=== PATIENT | male | born 1960 ===

== ENCOUNTER 2020-04-23 13:46 | Outpatient (REF) | payer OTHER, SELFPAY | END 2020-04-23 13:47 | disposition home or self-care (01) | LOC: HO.LAB 13:46 | PROVIDERS: Visit Provider Internal Medicine | DX: Z20.828 Contact with and (suspected) exposure to other viral communicable diseases (principal) | CPT/HCPCS: 36415; C9803; U0003 ==

== ENCOUNTER 2021-05-19 10:42 | Outpatient (REF) | payer MEDICARE, MEDICAID, SELFPAY ==
--- NOTE | 2021-05-19 | PFT_ITS ---
INDICATION: COPD. SPIROMETRY: FEV1 to FVC of 74% with an FEV1 of 1.67 L which is 52% predicted, FVC of 2.24 L which is 54% predicted. No significant response to bronchodilators noted. The patient does have evidence of small airway disease with AOF43-62 of 42% predicted. Maximum voluntary ventilation 58% predicted. LUNG VOLUMES: Total lung capacity 64% predicted with an expiratory reserve volume of 62% predicted. DIFFUSION CAPACITY: DLCO 97% predicted. INTERPRETATION: No definitive obstructive ventilatory defect, although the patient does have evidence of small airways disease. No significant response to bronchodilators noted. In addition to that, the patient does have a moderate restrictive ventilatory defect suggesting interstitial lung disease. Cannot rule out neuromuscular conditions. Diffusion capacity is within normal limits. If asthma is in the differential, methacholine challenge may be helpful in assessing for hyper-reactive airways, otherwise, clinical correlation warranted. Additional evaluation for the restrictive lung disease is also warranted by the pulmonary referral. Higinio Benz MD MR/MODL / [id number]
== END 2021-05-19 10:43 | disposition home or self-care (01) ==
LOC: HO.RESP 10:42
PROVIDERS: PCP Registered Nurse; Visit Provider Registered Nurse
DX: J44.9 Chronic obstructive pulmonary disease, unspecified (principal)
CPT/HCPCS: 94060; 94727; 94729

== ENCOUNTER → 2021-06-04 14:44 | Outpatient (REF) | payer MEDICARE, MEDICAID, SELFPAY | LOC: HO.SL 14:44 | PROVIDERS: Visit Provider Registered Nurse | DX: G47.33 Obstructive sleep apnea (adult) (pediatric) (principal); R06.83 Snoring; R40.0 Somnolence | CPT/HCPCS: 95806 ==

== ENCOUNTER → 2021-12-29 10:20 | Outpatient (REF) | payer MEDICAID, SELFPAY ==
--- NOTE | 2021-12-29 10:24 | CA_ITS ---
Transthoracic Echocardiogram Patient (Last, First, Middle): Dillon Harvey, Gender: Male Date of : 1960 Age: 61 Procedure Date: 12/29/2021 Procedure Type: Transthoracic Echocardiogram Location: OP Height: 170.18 cm Weight: 99.79 kg BSA: 2.11 m2 Heart Rate: 74 bpm BP: 120 / 70 mmHg Collar Runner: HELEN Referring MD: On[facility] Hay Sorter: Mikhail Simpson MD Symptoms: R60.0 EDEMA Study Quality: Adequate ECG Rhythm: Sinus arrhythmia Conclusions: - 1. Normal LV systolic function with LVEF of 60 65% with normal filling pattern 2. Aortic valve not well visualized but increased gradient suggestive of early aortic stenosis with mild aortic regurgitation 3. Normal RV systolic pressure 4. No gross pericardial effusion Findings Left Ventricle Normal left ventricular size, thickness, and systolic function. The visually estimated ejection fraction is between 60-65%. Spectral Doppler is indicative of a normal filling pattern. Right Ventricle Normal right ventricular cavity size and systolic function. Atria Both atria are normal in size. There is no evidence of interatrial shunt. Aortic Valve The aortic valve was not well visualized. There is mild calcification of the aortic valve. The mean gradient is 13 mmHg. There is mild aortic valve regurgitation. increased gradient across aortic valve may suggest early aortic stenosis. There is no obvious other etiology noted Mitral Valve Normal mitral valve structure and function. There is no mitral valve regurgitation. There is no mitral valve stenosis. Pulmonic Valve The pulmonic valve is likely normal. There is trace pulmonic valve regurgitation. Tricuspid Valve Normal tricuspid valve structure. There is trace tricuspid valve regurgitation. The right ventricular systolic pressure is normal. The right ventricular systolic pressure is 14 mmHg. Normal right atrial pressure. There is no evidence of pulmonary hypertension. Great Vessels All visible segments of the aorta are normal in size. The pulmonary artery was not well visualized. Venous The inferior vena cava is normal in size and collapses greater than 50% with inspiration. Pericardium/Pleural There is no evidence of pericardial effusion. Prior Study Comparison increased gradient across aortic valve. Mild aortic regurgitation noted Measurements 2D Linear Measurements IVSd: 1.05 0.6-0.9/0.6-1.0 cm LVIDd: 5.00 3.9-5.3/4.2-5.9 cm LVIDd Index: 2.37 2.4-3.2/2.2-3.1 cm/m2 LVIDs: 2.49 2.0-3.6 cm LVPWd: 1.10 0.7-1.1 cm LA Diam: 3.40 2.7-3.8/3.0-4.0 cm LAIDs Index: 1.61 1.5-2.3 cm/m2 LV Mass: 250.15 67-162/88-224 g LV Mass Index: 118.55 43-95/49-115 g/m2 LVOT Diam: 2.10 3.0+(-)1.3 cm 2D Systolic Function EF 4C: 62.40 >55% EF 2C: 66.60 >55% EF BiP: 64.90 >55% Mitral Valve MV Pk E: 1.06 MV PK A: 0.91 MV Decel Time: 192.00 E/A: 1.20 E'Lateral: 8.38 E'Medial: 6.85 E/E' Med: 15.50 E/E' Lat: 12.60 PHT: 56.00 MVA PHT: 3.93 Decel Calhoun: 5.52 Aortic Valve AoV Pk Simon: 2.58 AoV Mn Simon: 1.66 AoV VTI: 0.43 AoV Pk Grad: 27.00 Aov Mn Grad: 13.00 NAIF Cont.VTI: 2.67 AI Pk Simon: 4.20 AI Calhoun: 2.57 LVOT LVOT Pk Simon: 1.90 LVOT Mn Simon: 1.34 LVOT VTI: 0.33 LVOT Pk Grad: 14.00 LVOT Mn Grad: 8.00 LVOT Diam: 2.10 LVOT Area: 3.46 Diastolic Function MV Pk E: 1.06 MV Pk A: 0.91 E/A: 1.20 E'Medial: 6.85 E/E' Med: 15.50 E' Laterial: 8.38 E/E' Lat: 12.60 Right Ventricle TAPSE (mm): 25.30 TVS' Simon: 19.00 Tricuspid Valve TR Pk Simon: 1.65 TR Pk Grad: 11.00 RA Press: 3.00 RVSP: 14.00 Great Vessels Aorta Sinus of Valsalva: 3.70 2.0-3.5 cm Ao Asc: 3.80 2.1-3.4 cm Pulmonary Valve PV Pk Simon: 1.37 Peak PV Grad: 8.00 Updated in Other Vendor System with Status of Final Mikhail Simpson MD electronically signed on 12/30/2021 5:37:11 PM with status of Final
== END ==
LOC: HO.CARD 10:20
PROVIDERS: PCP Registered Nurse; Visit Provider Registered Nurse
DX: R60.0 Localized edema (principal)
CPT/HCPCS: 93306

== ENCOUNTER → 2022-01-07 10:44 | Outpatient (BNVA) | payer MEDICAID, SELFPAY | PROVIDERS: PCP Registered Nurse; Visit Provider Internal Medicine | DX: E66.9 Obesity, unspecified (principal); G47.33 Obstructive sleep apnea (adult) (pediatric); J45.909 Unspecified asthma, uncomplicated; Z68.37 Body mass index [BMI] 37.0-37.9, adult | CPT/HCPCS: 99202 ==

== ENCOUNTER → 2022-04-14 12:51 | Outpatient (BNVA) | payer MEDICAID, SELFPAY | PROVIDERS: PCP Registered Nurse; Visit Provider Internal Medicine | DX: G47.33 Obstructive sleep apnea (adult) (pediatric) (principal); J45.909 Unspecified asthma, uncomplicated; E66.9 Obesity, unspecified; Z68.37 Body mass index [BMI] 37.0-37.9, adult | CPT/HCPCS: 99212 ==

== ENCOUNTER → 2022-08-03 10:59 | Outpatient (BNVA) | payer MEDICAID, SELFPAY | PROVIDERS: PCP Registered Nurse; Visit Provider Internal Medicine | DX: R06.00 Dyspnea, unspecified (principal); J45.909 Unspecified asthma, uncomplicated; E66.01 Morbid (severe) obesity due to excess calories; G47.33 Obstructive sleep apnea (adult) (pediatric); Z68.36 Body mass index [BMI] 36.0-36.9, adult; Z99.89 Dependence on other enabling machines and devices | CPT/HCPCS: 99212 ==

== ENCOUNTER 2023-02-02 10:46 | Outpatient (AMB) | payer MEDICAID, SELFPAY ==
--- NOTE | 2023-02-02 10:59 | MHC.OFFVIS ---
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 Required: No Allergies No Known Allergies [No Known Allergies*] Allergy (Verified 02/02/23 11:35) Medication List - Last Reconciled 02/02/23 by Sabra Cabello MD albuterol sulfate 90 mcg/actuation (Ventolin HFA) 2 puffs inhalation Q4-6H PRN albuterol sulfate mg inhalation Q6H PRN cholecalciferol (vitamin D3) 50 mcg PO DAILY cyanocobalamin (vitamin B-12) 1,000 mcg PO DAILY diclofenac sodium 1% 2 grams topical QID furosemide 20 - 40 mg PO DAILY PRN ibuprofen 600 mg PO BID PRN Do you need a note to return to daycare/school/sports/work: No HPI Dypsnea HPI Details This 62 years old gentleman is here for his 6 months follow-up for sleep apnea and CPAP uses. He uses his CPAP every night. Lately there has been disturbance of his sleep due to water building in the hose. He has new CPAP machine since last year and it has been normally working okay. Weight mahan there has been no progress at all. He needs to join weight management program. Breathing has been good except for occasional wheezing and cough and he uses albuterol only once in a while, not on a daily basis. [facility] Medical History Bronchial asthma FARIBA (obstructive sleep apnea) Obesity (BMI 35.0-39.9 without comorbidity) Social History Patient Tobacco Use Status: Never used Tobacco Review of Systems Const All systems reviewed & are unremarkable except as noted in HPI and below Eyes Reports no additional complaints ENT Reports no additional complaints Card Denies chest pain, Denies irregular heart rhythm and Denies leg edema Resp Reports as per HPI GI Reports no additional complaints Reports no additional complaints Musc Reports myalgias and Reports arthralgias Skin/Breast Reports system reviewed and no additional complaints, except as documented Neuro Reports no additional complaints Psych Reports no additional complaints Endo Reports no additional complaints Physical Exam Vital Signs: Last Vital Signs Pulse 78 02/02/23 11:17 BP 110/74 02/02/23 11:17 Pulse Ox 97 02/02/23 11:17 BMI result Body Mass Index 36.6 Const Other: Has a round face. Short and obese neck, Mallampati class 4. General: comfortable, no acute distress, alert and awake Orientation/consciousness: patient oriented x3 HEENT Head: Yes normal to inspection General nose exam: No nasal polyps present and No nasal discharge present Face and sinus: Yes sinuses nontender Mouth: oropharynx abnormals (Oropharynx is narrow and crowded, Mallampati class 3) Throat: Yes posterior oropharynx normal Eyes General: appearance normal, both eyes and all related structures Neck Neck: Yes normal visual inspection, Yes no lymphadenopathy, Yes trachea midline, Yes no JVD and Yes other (Neck circumference 19 in) Thyroid: Thyroid normal Chest Chest palpation & inspection: normal inspection of the chest, normal palpation of entire chest wall and no tenderness Resp Effort & Inspection: normal respiratory effort Auscultation: clear to auscultation bilaterally, no crackles and no wheezes Cardio Palpation: normal PMI Rate: regular rate Rhythm: regular rhythm Heart sounds: no gallops and no murmurs Peripheral pulses: Peripheral pulses 2+ throughout GI Inspection: Yes other (Abdomen is obese and protuberant) Palpation (GI): Soft to palpation, nontender, No hepatosplenomegaly present and no masses Auscultation: normal bowel sounds Back/Spine/Pelvis Thoracic/Lumbar Spine: thoracic and lumbar spine normal to inspection Skin General skin exam: no rashes or lesions noted Neuro General: patient oriented x3 and no focal motor deficits Cranial nerves: Yes CN's II-XII intact bilaterally Extrem General: Yes normal to inspection, Yes no clubbing, cyanosis or edema and Yes no calf tenderness Psych Appearance: grossly normal and well kempt Speech and movement: Normal speech and movement present Assessment & Plan Assessment & Plan (1) Bronchial asthma: Comment: He has mild reactive airways/bronchial asthma, stable Use albuterol HFA ( VENTOLIN ) 2 puffs Q 6 hours p.r.n. Code(s): J45.909 - Unspecified asthma, uncomplicated (2) FARIBA (obstructive sleep apnea): Comment: He has moderately severe obstructive sleep apnea. HAS BEEN USING CPAP VERY REGULARLY AND BENEFITING FROM IT. HIS. SLEEP QUALITY HAS DEFINITELY IMPROVED EVEN HIS SHORTNESS OF BREATH AT NIGHT IS IMPROVED. HE IS COMMENDED FOR HIS GOOD COMPLIANCE, AND ADVISED TO CONTINUE USING EVERY NIGHT. CURRENTLY HAS SOME PROBLEM OF WATER BUILDING IN THE HOSE HE IS ADVISED TO CALL [employer], TECHNICAL SUPPORT ARE HE CAN BRING THE CPAP MACHINE HERE TO THE OFFICE AND WILL CHECK IT. Code(s): G47.33 - Obstructive sleep apnea (adult) (pediatric) (3) Obesity (BMI 35.0-39.9 without comorbidity): Comment: Patient is moderately obese patient is moderately obese. BMI=36.5 I discussed with him and advised that he should continue to lose weight. Discussed about diet and importance of exercise. Code(s): E66.9 - Obesity, unspecified Coding Level of Care Code Est Pt Level 3 (14515) Diagnoses Bronchial asthma J45.909 FARIBA (obstructive sleep apnea) G47.33 Obesity (BMI 35.0-39.9 without comorbidity) E66.9
[2023-02-02 11:17] VITALS: BP 110/74; PULSE 78; O2SAT 97; BMI 36.6
== END 2023-02-02 11:32 | disposition home or self-care (01) ==
PROVIDERS: PCP Registered Nurse; Visit Provider Internal Medicine
DX: J45.909 Unspecified asthma, uncomplicated (principal); G47.33 Obstructive sleep apnea (adult) (pediatric); E66.9 Obesity, unspecified
CPT/HCPCS: 99213

== ENCOUNTER → 2023-02-02 10:46 | Outpatient (BNVA) | payer MEDICAID, SELFPAY | PROVIDERS: Visit Provider Internal Medicine | DX: J45.909 Unspecified asthma, uncomplicated (principal); G47.33 Obstructive sleep apnea (adult) (pediatric); E66.9 Obesity, unspecified; Z68.36 Body mass index [BMI] 36.0-36.9, adult | CPT/HCPCS: 99212 ==

== ENCOUNTER 2023-06-08 10:35 | Outpatient (AMB) | payer MEDICAID, SELFPAY ==
--- NOTE | 2023-06-08 10:50 | A.OFFVIS_ITS ---
Intake Vital Signs 06/08/23 10:51 Height 5 ft 7 in Weight 241 lb BMI 37.7 BP 108/60 Blood Pressure Location Lt brachial Position Sitting Pulse 67 Pulse Source Pulse Oximeter Pulse Oximetry (%) 96 Oxygen Delivery Method Room Air Intake Visit Reasons: Dypsnea Intake Note: pt is here for follow up of FARIBA and states he is having a problem with his mach ine shutting off, gave DME information. He also, states he is a little wheezy. 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: No Allergies No Known Allergies [No Known Allergies*] Allergy (Verified 06/08/23 11:14) Medication List - Last Reconciled 06/08/23 by Sabra Cabello MD albuterol sulfate 90 mcg/actuation (Ventolin HFA) 2 puffs inhalation Q4-6H PRN albuterol sulfate mg inhalation Q6H PRN atorvastatin 10 mg PO DAILY cholecalciferol (vitamin D3) 50 mcg PO DAILY cyanocobalamin (vitamin B-12) 1,000 mcg PO DAILY diclofenac sodium 1% 2 grams topical QID furosemide 20 - 40 mg PO DAILY PRN ibuprofen 600 mg PO BID PRN topiramate 50 mg PO BID Do you need a note to return to daycare/school/sports/work: No HPI Dypsnea HPI Details THIS 62 YEARS OLD GENTLEMAN WITH GROSS OBESITY, AND DIAGNOSIS OF OBSTRUCTIVE SLEEP APNEA, Comes after 4 months for follow-up. He does put on the CPAP mask every night, and sleeps okay. But he wakes up with bouts of some wheezing during the night. He denies daytime sleepiness. He has put on about 10 lb of weight. At work he has frequent wheezing and uses albuterol 3 to 4 times a day. However he is able to correlate with the using perfume on his body , that makes him more wheezy. [facility] Medical History Bronchial asthma FARIBA (obstructive sleep apnea) Obesity (BMI 35.0-39.9 without comorbidity) Social History Patient Tobacco Use Status: Never used Tobacco Review of Systems Const All systems reviewed & are unremarkable except as noted in HPI and below Eyes Reports no additional complaints ENT Reports no additional complaints Card Denies chest pain, Denies irregular heart rhythm and Denies leg edema Resp Reports as per HPI GI Reports no additional complaints Reports no additional complaints Musc Reports myalgias and Reports arthralgias Skin/Breast Reports system reviewed and no additional complaints, except as documented Neuro Reports no additional complaints Psych Reports no additional complaints Endo Reports no additional complaints Physical Exam Vital Signs: Last Vital Signs Pulse 67 06/08/23 10:51 BP 108/60 06/08/23 10:51 Pulse Ox 96 06/08/23 10:51 Oxygen Delivery Method Room Air 06/08/23 10:51 BMI result Body Mass Index 37.7 Const Other: Has a round face. Short and obese neck, Mallampati class 4. General: comfortable, no acute distress, alert and awake Orientation/consciousness: patient oriented x3 HEENT Head: Yes normal to inspection General nose exam: No nasal polyps present and No nasal discharge present Face and sinus: Yes sinuses nontender Mouth: oropharynx abnormals (Oropharynx is narrow and crowded, Mallampati class 3) Throat: Yes posterior oropharynx normal Eyes General: appearance normal, both eyes and all related structures Neck Neck: Yes normal visual inspection, Yes no lymphadenopathy, Yes trachea midline, Yes no JVD and Yes other (Neck circumference 19 in) Thyroid: Thyroid normal Chest Chest palpation & inspection: normal inspection of the chest, normal palpation of entire chest wall and no tenderness Resp Effort & Inspection: normal respiratory effort Auscultation: clear to auscultation bilaterally, no crackles and no wheezes Cardio Palpation: normal PMI Rate: regular rate Rhythm: regular rhythm Heart sounds: no gallops and no murmurs Peripheral pulses: Peripheral pulses 2+ throughout GI Inspection: Yes other (Abdomen is obese and protuberant) Palpation (GI): Soft to palpation, nontender, No hepatosplenomegaly present and no masses Auscultation: normal bowel sounds Back/Spine/Pelvis Thoracic/Lumbar Spine: thoracic and lumbar spine normal to inspection Skin General skin exam: no rashes or lesions noted Neuro General: patient oriented x3 and no focal motor deficits Cranial nerves: Yes CN's II-XII intact bilaterally Extrem General: Yes normal to inspection, Yes no clubbing, cyanosis or edema and Yes no calf tenderness Psych Appearance: grossly normal and well kempt Speech and movement: Normal speech and movement present Results Reviewed Results Reviewed: Compliance report for the last 30 nights is reviewed. HE HAS USED ACTUALLY 30/30 NIGHTS,. 100% AVERAGE USE PER NIGHT 7 HOURS 29 MINUTE. PRESSURE USED 9.3. NO AIR LEAK. RESIDUAL AHI 0.1 Assessment & Plan Assessment & Plan (1) Obesity (BMI 35.0-39.9 without comorbidity): Comment: Patient is moderately obese .BMI=37.7 Code(s): E66.9 - Obesity, unspecified Plan: DISCUSSED WITH HIM ABOUT DIET . HE TENDS TO EAT MORE AFTER SUPPER, KEEPS ON MUNCHING ON PORTIONS OF ON DIET. HE MUST LOSE WEIGHT AT LEAST 10 LB IN THE NEXT 3-4 MONTHS. (2) FARIBA (obstructive sleep apnea): Comment: He has moderately severe obstructive sleep apnea. HAS BEEN USING CPAP VERY REGULARLY AND BENEFITING FROM IT. HIS. SLEEP QUALITY HAS DEFINITELY IMPROVED I EXPLAINED TO HIM THE FINDINGS OF THE COMPLIANCE REPORT, AND HE IS HAPPY TO KNOW THAT HIS MACHINE WORKS DURING THE NIGHT. Code(s): G47.33 - Obstructive sleep apnea (adult) (pediatric) Plan: COMMENDED FOR GOOD COMPLIANCE AND ADVISED TO KEEP ON USING THE CPAP EVERY NIGHT (3) Bronchial asthma: Comment: He has mild reactive airways/bronchial asthma, stable Use albuterol HFA ( VENTOLIN ) 2 puffs Q 6 hours p.r.n. Code(s): J45.909 - Unspecified asthma, uncomplicated Plan: HE IS ADVISED TO AVOID USING ANY BODY PERFUMES. USE VENTOLIN ONLY FOR ACUTE WHEEZING, Coding Level of Care Code Est Pt Level 3 (18652) Diagnoses Obesity (BMI 35.0-39.9 without comorbidity) E66.9 FARIBA (obstructive sleep apnea) G47.33 Bronchial asthma J45.909
[2023-06-08 10:51] VITALS: BP 108/60; PULSE 67; O2SAT 96; BMI 37.7
== END 2023-06-08 11:14 | disposition home or self-care (01) ==
PROVIDERS: PCP Registered Nurse; Visit Provider Internal Medicine
DX: E66.9 Obesity, unspecified (principal); G47.33 Obstructive sleep apnea (adult) (pediatric); J45.909 Unspecified asthma, uncomplicated
CPT/HCPCS: 99213

== ENCOUNTER → 2023-06-08 10:35 | Outpatient (BNVA) | payer MEDICAID, SELFPAY | PROVIDERS: PCP Registered Nurse; Visit Provider Internal Medicine | DX: G47.33 Obstructive sleep apnea (adult) (pediatric) (principal); J45.909 Unspecified asthma, uncomplicated; E66.9 Obesity, unspecified; Z68.37 Body mass index [BMI] 37.0-37.9, adult | CPT/HCPCS: 99212 ==

== ENCOUNTER 2023-10-10 10:32 | Outpatient (AMB) | payer MEDICAID, SELFPAY ==
[2023-10-10 10:43] VITALS: BP 104/68; PULSE 61; O2SAT 96; BMI 37.0
--- NOTE | 2023-10-10 10:43 | MHC.OFFVIS ---
Vital Signs 10/10/23 10:43 Height 5 ft 7 in Weight 236 lb BMI 37.0 BP 104/68 Blood Pressure Location Lt brachial Position Sitting Pulse 61 Pulse Source Pulse Oximeter Pulse Oximetry (%) 96 Oxygen Delivery Method Room Air Intake Visit Reasons: Dypsnea Intake Note: pt is here for follow up and states all is well Net Application Support Specialist Required: No Allergies No Known Allergies [No Known Allergies*] Allergy (Verified 10/10/23 11:07) Medication List - Last Reconciled 10/10/23 by Sabra Cabello MD albuterol sulfate 90 mcg/actuation (Ventolin HFA) 2 puffs inhalation Q4-6H PRN albuterol sulfate mg inhalation Q6H PRN atorvastatin 10 mg PO DAILY cholecalciferol (vitamin D3) 50 mcg PO DAILY cyanocobalamin (vitamin B-12) 1,000 mcg PO DAILY diclofenac sodium 1% 2 grams topical QID furosemide 20 - 40 mg PO DAILY PRN ibuprofen 600 mg PO BID PRN topiramate 50 mg PO BID Do you need a note to return to daycare/school/sports/work: No HPI HPI Dypsnea: Details: THIS 63 YEARS OLD GENTLEMAN WITH GROSS OBESITY AND DIAGNOSIS OF OBSTRUCTIVE SLEEP APNEA, COMES FOR FOLLOW-UP AFTER 4 MONTHS. HE DOES USE THE CPAP EVERY NIGHT, MOSTLY 6-7 HOURS PER NIGHT, BUT ON SOME NIGHTS USES ONLY FOR A FEW HOURS. HE HAS HEARD ABOUT INSPIRE, SO WANTS TO TALK ABOUT THAT. HE DOES HAVE SOME NASAL STUFFINESS , WHEN HE HAS SOME DIFFICULTY IN USING THE CPAP. DENIES ANY. DAYTIME SLEEPINESS BREATHING HAS BEEN GOOD EXCEPT THAT HE USES VENTOLIN INHALER ONCE OR TWICE A DAY. NASAL CONGESTION AND SOME WHEEZING IS DIRECTLY RELATED TO HIS WEARING OF COLOGNE. HIS WEIGHT HAS NOT CHANGED MUCH. [facility] Medical History Bronchial asthma FARIBA (obstructive sleep apnea) Obesity (BMI 35.0-39.9 without comorbidity) Social History Patient Tobacco Use Status: Never used Tobacco Review of Systems Const All systems reviewed & are unremarkable except as noted in HPI and below Eyes Reports no additional complaints ENT Reports no additional complaints Card Denies chest pain, Denies irregular heart rhythm and Denies leg edema Resp Reports as per HPI GI Reports no additional complaints Reports no additional complaints Musc Reports myalgias and Reports arthralgias Skin/Breast Reports system reviewed and no additional complaints, except as documented Neuro Reports no additional complaints Psych Reports no additional complaints Endo Reports no additional complaints Physical Exam Vital Signs: Last Vital Signs Pulse 61 10/10/23 10:43 BP 104/68 10/10/23 10:43 Pulse Ox 96 10/10/23 10:43 Oxygen Delivery Method Room Air 10/10/23 10:43 BMI result Body Mass Index 37.0 Const Other: Has a round face. Short and obese neck, Mallampati class 4. General: comfortable, no acute distress, alert and awake Orientation/consciousness: patient oriented x3 HEENT Head: Yes normal to inspection General nose exam: No nasal polyps present and No nasal discharge present Face and sinus: Yes sinuses nontender Mouth: oropharynx abnormals (Oropharynx is narrow and crowded, Mallampati class 3) Throat: Yes posterior oropharynx normal Eyes General: appearance normal, both eyes and all related structures Neck Neck: Yes normal visual inspection, Yes no lymphadenopathy, Yes trachea midline, Yes no JVD and Yes other (Neck circumference 19 in) Thyroid: Thyroid normal Chest Chest palpation & inspection: normal inspection of the chest, normal palpation of entire chest wall and no tenderness Resp Effort & Inspection: normal respiratory effort Auscultation: clear to auscultation bilaterally, no crackles and no wheezes Cardio Palpation: normal PMI Rate: regular rate Rhythm: regular rhythm Heart sounds: no gallops and no murmurs Peripheral pulses: Peripheral pulses 2+ throughout GI Inspection: Yes other (Abdomen is obese and protuberant) Palpation (GI): Soft to palpation, nontender, No hepatosplenomegaly present and no masses Auscultation: normal bowel sounds Back/Spine/Pelvis Thoracic/Lumbar Spine: thoracic and lumbar spine normal to inspection Skin General skin exam: no rashes or lesions noted Neuro General: patient oriented x3 and no focal motor deficits Cranial nerves: Yes CN's II-XII intact bilaterally Extrem General: Yes normal to inspection, Yes no clubbing, cyanosis or edema and Yes no calf tenderness Psych Appearance: grossly normal and well kempt Speech and movement: Normal speech and movement present Results Reviewed Results Reviewed: COMPLIANCE REPORT FOR THE LAST 30 NIGHTS IS REVIEWED. HE HAS USED 30/30 NIGHTS. AVERAGE USE IT PER. NIGHT 7 HOURS 19 MINUTES ON BOUT. 3 NIGHTS HE USED LESS THAN 4 HOURS PRESSURE USED IS 10 CM. RESIDUAL AHI 0 Assessment & Plan Assessment & Plan (1) Obesity (BMI 35.0-39.9 without comorbidity): Comment: Patient is moderately obese .BMI=37.0 Code(s): E66.9 - Obesity, unspecified Category: Medical Plan: EXPLAINED ABOUT THE WEIGHT AND ENCOURAGED TO LOSE MORE WEIGHT. BMI BEING ABOVE 35, HE DOES NOT QUALIFY FOR INSPIRE. (2) FARIBA (obstructive sleep apnea): Comment: He has moderately severe obstructive sleep apnea. HAS BEEN USING CPAP VERY REGULARLY AND BENEFITING FROM IT. HIS SLEEP QUALITY HAS BEEN FAIRLY GOOD. Code(s): G47.33 - Obstructive sleep apnea (adult) (pediatric) Category: Medical Plan: I EXPLAINED TO HIM THAT USE OF CPAP IS THE BEST OPTION OUT TREATMENT FOR HIM. ADVISED HIM TO KEEP ON USING CPAP REGULARLY EVERY NIGHT. (3) Bronchial asthma: Comment: He has mild reactive airways/bronchial asthma, stable Code(s): J45.909 - Unspecified asthma, uncomplicated Category: Medical Plan: Use albuterol HFA ( VENTOLIN ) 2 puffs Q 6 hours p.r.n. TALKED TO HIM ABOUT CUTTING DOWN THE USE OF:, OR ANY SPRAYS. Coding Level of Care Code Est Pt Level 3 (59643) Diagnoses Obesity (BMI 35.0-39.9 without comorbidity) E66.9 FARIBA (obstructive sleep apnea) G47.33 Bronchial asthma J45.909
== END 2023-10-10 11:10 | disposition home or self-care (01) ==
PROVIDERS: PCP Registered Nurse; Visit Provider Internal Medicine
DX: E66.9 Obesity, unspecified (principal); G47.33 Obstructive sleep apnea (adult) (pediatric); J45.909 Unspecified asthma, uncomplicated
CPT/HCPCS: 99213

== ENCOUNTER → 2023-10-10 10:32 | Outpatient (BNVA) | payer MEDICAID, SELFPAY | PROVIDERS: PCP Registered Nurse; Visit Provider Internal Medicine | DX: J45.909 Unspecified asthma, uncomplicated (principal); G47.33 Obstructive sleep apnea (adult) (pediatric); E66.9 Obesity, unspecified; Z68.37 Body mass index [BMI] 37.0-37.9, adult | CPT/HCPCS: 99212 ==

== ENCOUNTER 2023-12-09 12:36 | Outpatient (REF) | payer MEDICAID, SELFPAY ==
--- NOTE | ~2023-12-09 | XR_ITS ---
EXAMINATION: XR FOOT, RIGHT CLINICAL INFORMATION: Bunion great toe. Chronic pain. COMPARISON: X-ray of the right ankle April 2018. TECHNIQUE: AP, lateral, and oblique views of the right foot. FINDINGS: There is hallux valgus with uncovering of the medial third portion of the first metatarsal head. No joint space narrowing of the first metacarpophalangeal joint. There is a bony protuberance along the medial aspect of the first metatarsal head compatible with a spur/enthesophyte. Overlying soft tissue is normal. Mild osteoarthritis of the talonavicular joint manifested by small marginal osteophytes without joint space narrowing, unchanged. Tiny calcaneal spurs, unchanged. XR/XR foot RT min 3V IMPRESSION: 1. Hallux valgus. Bony protuberance/spur of the medial aspect of the head of the first metatarsal. 2. Mild osteoarthritis of the talonavicular joint. Electronically signed by: Marty Gerardo MD 12/15/2023 08:33 PM EDT
== END 2023-12-09 12:37 | disposition home or self-care (01) ==
LOC: HO.HHCX 12:36
PROVIDERS: Visit Provider Registered Nurse
DX: M21.611 Bunion of right foot (principal)
CPT/HCPCS: 73630

== ENCOUNTER 2024-03-07 09:51 | Outpatient (AMB) | payer MEDICARE, MEDICAID, SELFPAY ==
[2024-03-07 10:10] VITALS: BP 110/68; PULSE 63; O2SAT 97; BMI 37.5
--- NOTE | 2024-03-07 10:10 | MHC.OFFVIS ---
Vital Signs 03/07/24 10:10 Height 5 ft 7 in Weight 239 lb 3.225 oz BMI 37.5 BP 110/68 Blood Pressure Location Lt brachial Position Sitting Pulse 63 Pulse Source Pulse Oximeter Pulse Oximetry (%) 97 Oxygen Delivery Method Room Air Intake Visit Reasons: copd Intake Note: pt is here for follow up and states his breathing is okay. 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 HE HAS VERY REGULAR USER OF CPAP AND SLEEPS WELL. HE HAS FULLFACE MASK WHICH FITS WELL. HE HAS NOT BEEN ABLE TO LOSE MUCH WEIGHT HE HAS BEEN TREATED FOR AN ULCER ON THE RIGHT FOOT AND WAS NOT ABLE TO WALK MUCH. BREATHING REMAINS STABLE AND HE HARDLY NEEDS TO USE ANY BRONCHODILATOR INHALER OR UPDRAFTS. [facility] Medical History Bronchial asthma FARIBA (obstructive sleep apnea) Obesity (BMI 35.0-39.9 without comorbidity) Social History Patient Tobacco Use Status: Never used Tobacco Review of Systems Const All systems reviewed & are unremarkable except as noted in HPI and below Eyes Reports no additional complaints ENT Reports no additional complaints Card Denies chest pain, Denies irregular heart rhythm and Denies leg edema Resp Reports as per HPI GI Reports no additional complaints Reports no additional complaints Musc Reports myalgias and Reports arthralgias Skin/Breast Reports system reviewed and no additional complaints, except as documented Neuro Reports no additional complaints Psych Reports no additional complaints Endo Reports no additional complaints Physical Exam Vital Signs: Last Vital Signs Pulse 63 03/07/24 10:10 BP 110/68 03/07/24 10:10 Pulse Ox 97 03/07/24 10:10 Oxygen Delivery Method Room Air 03/07/24 10:10 BMI result Body Mass Index 37.5 Const Other: Has a round face. Short and obese neck, Mallampati class 4. General: comfortable, no acute distress, alert and awake Orientation/consciousness: patient oriented x3 HEENT Head: Yes normal to inspection General nose exam: No nasal polyps present and No nasal discharge present Face and sinus: Yes sinuses nontender Mouth: oropharynx abnormals (Oropharynx is narrow and crowded, Mallampati class 3) Throat: Yes posterior oropharynx normal Eyes General: appearance normal, both eyes and all related structures Neck Neck: Yes normal visual inspection, Yes no lymphadenopathy, Yes trachea midline, Yes no JVD and Yes other (Neck circumference 19 in) Thyroid: Thyroid normal Chest Chest palpation & inspection: normal inspection of the chest, normal palpation of entire chest wall and no tenderness Resp Effort & Inspection: normal respiratory effort Auscultation: clear to auscultation bilaterally, no crackles and no wheezes Cardio Palpation: normal PMI Rate: regular rate Rhythm: regular rhythm Heart sounds: no gallops and no murmurs Peripheral pulses: Peripheral pulses 2+ throughout GI Inspection: Yes other (Abdomen is obese and protuberant) Palpation (GI): Soft to palpation, nontender, No hepatosplenomegaly present and no masses Auscultation: normal bowel sounds Back/Spine/Pelvis Thoracic/Lumbar Spine: thoracic and lumbar spine normal to inspection Skin General skin exam: no rashes or lesions noted Neuro General: patient oriented x3 and no focal motor deficits Cranial nerves: Yes CN's II-XII intact bilaterally Extrem General: Yes normal to inspection, Yes no clubbing, cyanosis or edema and Yes no calf tenderness Psych Appearance: grossly normal and well kempt Speech and movement: Normal speech and movement present Results Reviewed Results Reviewed: COMPLIANCE REPORT FOR THE LAST 30 NIGHTS IS REVIEWED. HE HAS USED 30/30 NIGHTS,. 100% OF THE NIGHTS AVERAGE USE IT PER NIGHT 7 HOURS 58 MINUTES WHICH IS EXCELLENT. THERE IS NO AIR LEAK ISSUE AND RESIDUAL AHI ONLY 0.4 Assessment & Plan Assessment & Plan (1) Obesity (BMI 35.0-39.9 without comorbidity): Comment: Patient is moderately obese .BMI=37.0 Code(s): E66.9 - Obesity, unspecified Category: Medical Plan: WE TALKED ABOUT THE DIET AND EXERCISE. HE HAS NOT BEEN ABLE TO WALK MUCH BECAUSE OF THE ULCER ON THE RIGHT FOOT BEING TREATED. INSTRUCTED TO LIMIT THE INTAKE OF CARBOHYDRATES. (2) FARIBA (obstructive sleep apnea): Comment: He has moderately severe obstructive sleep apnea. COMPLIANCE IS EXCELLENT. HAS BEEN USING CPAP VERY REGULARLY AND BENEFITING FROM IT. HIS SLEEP QUALITY HAS BEEN FAIRLY GOOD. Code(s): G47.33 - Obstructive sleep apnea (adult) (pediatric) Category: Medical Plan: COMMENDED FOR GOOD COMPLIANCE AND ADVISED TO CONTINUE USING THE CPAP EVERY NIGHT. (3) Bronchial asthma: Comment: He has mild reactive airways/bronchial asthma, stable Code(s): J45.909 - Unspecified asthma, uncomplicated Category: Medical Plan: ALBUTEROL HFA 2 PUFFS Q 6 HOURS P.R.N. Coding Level of Care Code Est Pt Level 3 (33715) Diagnoses Obesity (BMI 35.0-39.9 without comorbidity) E66.9 FARIBA (obstructive sleep apnea) G47.33 Bronchial asthma J45.909
== END 2024-03-07 10:33 | disposition home or self-care (01) ==
PROVIDERS: PCP Registered Nurse; Visit Provider Internal Medicine
DX: E66.9 Obesity, unspecified (principal); G47.33 Obstructive sleep apnea (adult) (pediatric); J45.909 Unspecified asthma, uncomplicated
CPT/HCPCS: 99213

== ENCOUNTER → 2024-03-07 09:51 | Outpatient (BNVA) | payer MEDICAID, SELFPAY | PROVIDERS: PCP Registered Nurse; Visit Provider Internal Medicine | DX: J45.909 Unspecified asthma, uncomplicated (principal); E66.9 Obesity, unspecified; G47.33 Obstructive sleep apnea (adult) (pediatric); Z68.37 Body mass index [BMI] 37.0-37.9, adult | CPT/HCPCS: 99212 ==

== ENCOUNTER 2024-05-21 11:58 | Outpatient (REF) | payer MEDICARE, MEDICAID, SELFPAY ==
--- OUTSIDE RECORDS SUMMARY | 2024-05-21 13:23 | XMS_ITS | Encounter Summary ---
Author Organization [employer] Address [address] [facility] 7t [place] [address] Care Team Providers Care Systems Administration Analyst Name Role Phone Ondina iTnoco Primary Care Provider [phone] Reason for Referral * Consultation (STAT) - Closed Specialty Diagnoses / Procedures Referred By Florentin morales Referred To Contact Surgical Oncology Diagnoses Malignant melanoma of right lower extremity including hip (CMS/HCC) Ondina Tinoco FNP [address] [place] [address] Phone: tel: fax: Tommie Franz [address] [facility] [address] [place] [address] Phone: tel: fax: Referral ID Status Reason Start Date Expiration Date V isits Requested Visits Authorized [id number] Closed Specialty Services Required 12/27/2023 12/26/2024 1 1 Encounter Details Date Type Department Care Team (Late st Contact Info) Description 12/27/2023 Orders Only [facility] [address] [place], [place] [phone] Ondina Tinoco FNP [address] [place], [place] [phone] Malignant melanoma of right lower extremity including hip (CMS/HCC) (Primary Dx) Social History Tobacco Use Types Packs/Day Years Used Date Smoking Tobacco: Never Smokeless Tobacco: Never Alcohol Use Standard Drinks/Week Comments Never 0 (1 standard drink = 0.6 oz pur e alcohol) Alcohol Answer Date Recorded Frequency of Alcohol Consumption Not on file 01/28/2023 Average Number of Drinks Not on file 023 Frequency of Binge Drinking Not on file 01/16 Score 0 01/28/2023 Depression Answer Date Recorded Patient Health Questionnaire-9 Score 0 12/09/2023 Patient Health Questionnaire-9 Score 0 12/09/2023 Last PHQ-9: Questionnaire Data Not on file 0 12/09/2023 Housing Stability Answer Date Recorded What is your housing situation today? I have corrina rudy 12/09/[address] you li ve. Do you have problems with any of the following? None of the above 12/09/2023 Food Insecurity Answer Date Recorded Within the past 12 months, y ou worried that your food would run out before you got money to buy more: Never True 12/09/2023 Within the past 12 months,th e food you bought just didn't last and you didn't have enough money to get more: Never True Transportation Answer Date Recorded In the past 12 months, has l ack of transportation kept you from medical appts, meetings, work or from getting things needed for daily living? No 12/09/2023 Utilities Answer Date Recorded In the past 12 months, has t he electric, gas, oil or water company threatened to shut off services in your home? No 12/09/2023 Depression Answer Date Recorded Patient Health Questionnaire-2 Score 0 12/09/2023 Internet Access Answer Date Recorded Internet Access Q1 Yes 12/16/2023 Internet Access Q2 Not on file 12/16/2023 Sex and Gender Information Value Date Recorded Sex Assigned at Male 02/15/2022 10:18 AM EDT Legal Sex Male 10:18 AM EDT Gender Identity Male 02/15/2022 10:18 AM EDT Sexual Orientation Straight 02/15/2022 10 :18 AM EDT documented as of this encounter Plan of Treatment Upcoming Encounters Date Type Department Care Team (Late st Contact Info) Description 05/25/2024 11:15 AM EST Office Visit [facility] [address] [place] [address] [facility], [facility] [address] [place] [address] documented as of this encounter Procedures Procedure Name Priority Date/Time Associated Diagnosis Comments AMB REFERRAL TO SURGICAL ONCOLOGY STAT 01/03/2024 Malignant melanoma of right lower extremity including hip (CMS/HCC) documented in this encounter Results * Referral to Surgical Oncology (01/03/2024) [facility] OUTPATIENT REFERRAL ORDERABLE S Final Result documented in this encounter Visit Diagnoses Diagnosis Malignant melanoma of right lower extremity including hip (CMS/HCC)- Primary documented in this encounter Additional Health Concerns Assessment Noted Time PHQ-9 Depression Total Score: 0 12/09/19 24 11:12 AM EDT documented as of this encounter Care Teams Systems Administration Analyst Relationship Specialty Start Date End Date Ondina Tinoco FNP [address] [place] [phone] PCP - General Family Medicine 01/13/21 documented as of this encounter
--- OUTSIDE RECORDS SUMMARY | 2024-05-21 13:23 | XMS_ITS | Encounter Summary ---
Author Organization [employer] Address [address] [facility] 7t [place] [address] Care Team Providers Care Environmental Emergencies Assistant Name Role Phone Ondina Tinoco [facility] Primary Care Provider [phone] Encounter Details Date Type Department Care Team (Late st Contact Info) Description 03/10/2022 Abstract [facility] [address] [place] [phone] Provider, MD Yenny Social History Tobacco Use Types Packs/Day Years Used Date Smoking Tobacco: Never Assessed Sex and Gender Information Value Date Recorded Sex Assigned at Male 02/15/2022 10:18 AM EDT Legal Sex Male 10:18 AM EDT Gender Identity Male 02/15/2022 10:18 AM EDT Sexual Orientation Straight 02/15/2022 10 :18 AM EDT documented as of this encounter Plan of Treatment Upcoming Encounters Date Type Department Care Team (Late st Contact Info) Description 05/25/2024 11:15 AM EST Office Visit [facility] [address] [place] [phone] Ondina Tinoco [facility] [address] [place] [address] documented as of this encounter Visit Diagnoses Not on filedocumented in this encounter Care Teams Environmental Emergencies Assistant Relationship Specialty Start Date End Date Ondina Tinoco FNP [address] [place] [address] PCP - General Family Medicine 01/13/21 documented as of this encounter
--- OUTSIDE RECORDS SUMMARY | 2024-05-21 13:24 | XMS_ITS | Encounter Summary ---
Author Organization [employer] Address [address] [facility] [address] 7[address] [place] [address] Care Team Providers Care Tailer In Name Role Phone Alejandrina [facility] Primary Care Provider [phone] Reason for Visit * Reason Onset Date Comments PT1 01/19/2024 Encounter Details Date Type Department Care Team ([facility] st Contact Info) Description 01/19/2024 Telephone [facility] [address] [place] [address] [facility] [address] [place] [address] PT1 Social History Tobacco Use Types Packs/Day Years [...] your housing situation today? I have corrina grant 12/09/[address] you li [...] AM EDT documented as of this encounter Miscellaneous Notes * Telephone Encounter - Mary Beth Rae RN - 01/23/2024 11:52 AM EDT Called [facility] General Surgery per PCP request to confirm pt has follow up appts scheduled. Per Peggy at General Surgery, pt saw Dr Tommie Franz on 01/02 at 9:20am, and has follow up appt tomorrow 01/23 at 11:20am with Dr Franz and another follow up appt is scheduled for 02/09 with an COAL BRIQUETTE MACHINE OPERATOR in their office. Will route message to PCP as BASIM. * Telephone Encounter - Mary Beth Rae RN - 01/23/2024 11:52 AM EDT ----- Message from [facility] sent at 01/23/2024 11:24 AM EDT ----- Hi all Please check status of patient's surgical oncology case. He was supposed to have another biopsy with them. I want to make sure he did not fall through any cracks as he is not very reliable. Thank you! * Telephone Encounter - Janetnikole Cartere - 01/19/2024 2:21 PM EDT Patient calling requesting PT1 Home Address verified: Y/N: Yes Provider name or facility name: [facility] Facility Address: [address] [place] [id number] Escort needed: Y/N: No Do you have a wheelchair: Y/N: No If yes- Manual or electric: n/a Visits: 1 x month documented in this encounter Plan of Treatment Upcoming Encounters Date Type Department Care Team ([facility] st Contact Info) Description 05/25/2024 11:15 AM EST Office Visit [facility] [address] [place] [address] Ondina Tinoco FNP [address] [place] [address] documented as of this encounter Visit Diagnoses Not on filedocumented in this encounter Additional Health Concerns Assessment Noted Time PHQ-9 Depression Total Score: 0 12/09/19 24 11:12 AM EDT documented as of this encounter Care Teams Tailer In Relationship Specialty Start Date End Date Ondina Tinooc FNP [address] [place] [phone] PCP - General Family Medicine 01/13/21 documented as of this encounter
--- OUTSIDE RECORDS SUMMARY | 2024-05-21 13:24 | XMS_ITS | Encounter Summary ---
Author Organization [employer] Address [address] [facility] [place] [address] Care Team Providers Care Mercury Cell Cleaner Name Role Phone Alejandrina [facility] Primary Care Provider [phone] Reason for Visit * Reason Onset Date Comments forms 08/16/2022 Encounter Details Date Type Department Care Team ([facility] st Contact Info) Description 08/16/2022 Telephone [facility] [address] [place], [place] [phone] [facility] [address] [place] [address] forms Social History Tobacco Use Types Packs/Day Years [...] Orientation Straight 02/15/2022 10 :18 AM EDT COVID-19 Exposure Response Date Recorded In the last 10 days, have yo u been in contact with someone who was confirmed or suspected to have Coronavirus/COVID-19? No / Unsure 09/29/2022 11:00 AM EDT documented as of this encounter Miscellaneous Notes * Telephone Encounter - Marianna Clifotn - 08/16/2022 3:51 PM EDT Tc from pt requesting status update on paper forms they dropped off at [facility], states they are for apartment searching needs medical record history , Advised paper forms can take 7 -15 business days, ptverbalizes understanding. documented in this encounter Plan of Treatment Upcoming Encounters Date Type Department Care Team (Late st Contact Info) Description 05/25/2024 11:15 AM EST Office Visit [facility] [address] [place] [address] Kent Ondina, [facility] [address] [place], [place] [phone] documented as of this encounter Visit Diagnoses Not on filedocumented in this encounter Additional Health Concerns Assessment Noted Time PHQ-9 Depression Total Score: 0 05/04/19 23 1:08 PM EST documented as of this encounter Care Teams Mercury Cell Cleaner Relationship Specialty Start Date End Date Ondina Tinoco FNP [address] [place] [phone] PCP - General Family Medicine 01/13/21 documented as of this encounter
--- OUTSIDE RECORDS SUMMARY | 2024-05-21 13:24 | XMS_ITS | Clinical Summary ---
Author Organization [employer] Address [address] [facility] 7t [place] [address] Care Team Providers Care Christmas Tree Farm Manager Name Role Phone Ondina Tinoco GENERAL REPAIRER Primary Care Provider [phone] Allergies No known active allergies Medications Diclofenac Sodium 1 % gel Apply 2 g topically every 6 (six) hours. 021 Active albuterol (2.5 MG/3ML) 0.083% nebulizer solution Inhale 1 vial using nebulizer every six hours as needed 022 Active capsicum (Zostrix) 0.075 % topical cream Apply topically every 8 (eight) hours. Active Lidocaine 4 % patch apply 1 patch to affected area 1-2 times daily Active terbinafine (LamISIL AT) 1 % creamIndications: Tinea pedis of both feet Apply topically 2 times daily. 30 g 2 023 Active Ventolin HFA 108 (90 Base) MCG/ACT inhalerIndication s:Mild intermittent asthma without complication INHALE 2 PUFFS BY MOUTH EVERY 4 HOURS 18 g 11 024 Active atorvastatin (Lipitor) 10 MG tabletIndications :Mixed hyperlipidemia TAKE 1 TABLET BY MOUTH DAILY IN THE MORNING 30 tablet 11 024 Active furosemide (Lasix) 20 MG tabletIndications :Edema, unspecified type TAKE 1 TO 2 TABLETS BY MOUTH DAILY NEEDED FOR EDEMA 90 tablet 3 024 Active cyanocobalamin (Vitamin B-12) 1000 MCG tablet TAKE 1 TABLET BY MOUTH EVERY DAY IN THE MORNING 90 tablet 3 024 Active psyllium (Reguloid) 57.6 % powderIndications :Class 2 severe obesity due to excess calories with serious comorbidity and body mass index (BMI) of 38.0 to 38.9 in adult ([facility]) MIX 2-3 TEASPOONFUL OF POWDER IN 8 OUNCES OF WATER THREE TIMES DAILY BEFORE A MEAL 284 g 11 024 Active ibuprofen 600 MG tabletIndications :Chronic bilateral low back pain without sciatica TAKE 1 Tablet BY MOUTH TWICE DAILY WITH FOOD NEEDED FOR FOR BACKACHE 60 tablet 024 Active topiramate (Topamax) 50 MG tabletIndications :Class 2 severe obesity due to excess calories with serious comorbidity and body mass index (BMI) of 38.0 to 38.9 in adult ([facility]) TAKE 2 TABLETS BY MOUTH EVERY DAY BEFORE SUPPER 60 tablet 024 Active D3 Super Strength 50 MCG (1999 UT) capsule TAKE 1 CAPSULE BY MOUTH EVERY DAY 90 capsule 025 Active cholecalciferol (Vitamin D-3) 50 MCG (1999 UT) capsule take 1 tablet by oral route daily 022 2024 Discontinued Active Problems Problem Noted Date Diagnosed Date Mild intermittent asthma 05/10/2022 Overview (05/10/2022): ?? PFT's from 05/2021, results concerning for possible interstitial lung disease with recommendation for pulmonary referral. ?? Seen by [facility] pulmonology 12/2021 - per visit note mild bronchial asthma. Albuterol PRN recommended ?? Pulm also managing CPAP Assessment & Plan (09/12/2022 10:03 AM EDT): ?? Continue current regimen ?? Sx improving with recent weight loss Mixed hyperlipidemia 05/10/2022 Overview (09/12/2022): ?? Atorvastatin 10mg daily ?? ASCVD 7.1% 05/2022 Assessment & Plan (09/12/2022 10:04 AM EDT): ?? Continue current regimen Healthcare maintenance 05/10/2022 Overview (09/12/2022): C-Scope: Cologuard neg 06/2022. Repeat 06/2025 PSA:10/2021, 2.71; repeat 10/2022 HCV Screen: Neg 2017 HIV Screen: Neg 2017 Vision Exam: Previously referred to [facility] vision care Dental Care: [facility] 05/04/2022 Overview (05/10/2022): ?? Chronic bilateral lower extremity edema ?? Initial labs: TSH, CMP with mild elevation in creatinine ?? Responding well to PRN lasix 20mg ?? Echocardiogram 12/2021 with mild aortic regurgitation, otherwise negative Assessment & Plan (09/12/2022 10:03 AM EDT): Likely mild venous insufficiency ?? Continue PRN lasix 20mg ?? Continue frequent leg elevation and use of compression stockings ?? Contact HC if sx worsen, otherwise will continue to monitor. No indication for vascular referral at this time. Assessment & Plan (05/10/2022 3:35 PM EST): Likely mild venous insufficiency ?? Continue PRN lasix 20mg ?? Continue frequent leg elevation and use of compression stockings ?? Contact HC if sx worsen, otherwise will continue to monitor. No indication for vascular referral at this time. Obesity (BMI 35.0-39.9 without comorbidity) 04/18 Obstructive sleep apnea 04/02/2021 Overview (05/10/2022): ?? Compliant with CPAP Thiamin deficiency 02/09/2018 Vitamin D deficiency 01/26/2018 Chronic low back pain 08/25/2016 Overview (08/03/2023): Injured low back > 10 years ago d/t heavy lifting. 2013 MRI lumbar spine with severe degenerative changes. Followed by pain management in [place] and reports moderate relief with steroid injections. Failed duloxetine trial (s/e) Assessment & Plan (12/25/2022 6:25 PM EDT): ?? Continue to follow with pain mngmt ?? Seek immediate medical care if experiencing LE weakness, bowel/bladder dysfunction, fever, or saddle anesthesia. Alcohol dependence, binge pattern 08/25/2016 Overview (12/25/2022): ?? Thiamine and vitamin D supplementation ?? 12 drinks/day-decreased to 6 drinks/day weekend only Assessment & Plan (12/25/2022 6:27 PM EDT): ?? Continue vitamin supplementation ?? Congratulated patient on successfully decreasing intake ?? Pt will continue to decrease ETOH with goal of no more than 2 drinks/day on the weekends ?? Pt declines referral to [facility] Assessment & Plan (09/12/2022 10:02 AM EDT): ?? Congratulated patient on sobriety ?? Patient will reach out if feels further support needed. Declines referral to AUD clinic Resolved Problems Problem Noted Date Diagnosed Date Resolved Date Class 2 severe obesity due t o excess calories with serious comorbidity and body mass index (BMI) of 38.0 to 38.9 in adult 09/12/2022 Overview (10/12/2022): ?? Topiramate 100mg before evening meal ?? Premeal fiber Assessment & Plan (12/25/2022 6:29 PM EDT): ?? Pt with 1lb weight gain since last visit in September ?? Pt will RESTART topiramate and premeal fiber ?? If patient tolerates cymbalta start well, will plan to initiate phentermine at follow up Assessment & Plan (09/12/2022 10:09 AM EDT): Vitals 04/01/2021 11/06/2021 12/04/2021 05/04/2022 09/01/2022 Systolic 128 126 130 126 119 Diastolic 80 82 82 79 74 Pulse 70 85 90 85 67 Temp - - - 97 97.5 Resp - - - 20 18 Height (in) 67.248 67.248 67.248 66 66 Weight (lb) 249 240.6 244 239 231.4 BMI (kg/m2) 38.71 kg/m2 37.41 kg/m2 37.93 kg/m2 38.58 kg/m2 37.35 kg/m2 BSA (m2) 2.32 m2 2.27 m2 2.29 m2 2.24 m2 2.21 m2 VISIT REPORT - - - - - Some recent data might be hidden ?? Patient doing very well ?? Continue current regimen Renal cyst 01/26/2018 05/10/2022 Moderate chronic obstructive pulmonary disease 08/25/2016 05/10/2022 Encounters Date Type Department Care Team Description 05/17/2024 Refill [facility] MEDICINE [address] [place] [address] [place] [facility] 05/04/2024 Telephone [facility] [address] [place] [address] [facility] Pt1 05/01/2024 Patient Outreach [facility] [address] [place] [address] [facility] Ondina [facility] Care Coordination (CHW outreach for SDOH PT-1 and food needs-LVM ) 05/01/2024 Telephone [facility] MEDICINE [address] [place] [address] [facility] PT1 04/27/2024 Patient Outreach [facility] [address] [place] [address] [facility] Care Coordination (CHW outreach for SDOH PT-1 and food needs-referral completed /) 04/27/2024 Telephone [facility] MEDICINE [address] [place] [address] [facility] PT1 04/13/2024 Refill [facility] MED & PEDS [address] [place] [address] [facility] Chronic bilateral low back pain without sciatica; Class 2 severe obesity due to excess calories with serious comorbidity and body mass index (BMI) of 38.0 to 38.9 in adult ([facility]) 04/13/2024 Refill [facility] MEDICINE [address] [place] [address] [facility] Class 2 severe obesity due to excess calories with serious comorbidity and body mass index (BMI) of 38.0 to 38.9 in adult ([facility]); Mild intermittent asthma without complication; Chronic bilateral low back pain without sciatica 04/05/2024 Patient Outreach [facility] MEDICINE [address] [place] [address] [facility], [facility] Care Coordination (CHW outreach for SDOH PT-1 - LVM ) 04/04/2024 Telephone [facility] [address] [place] [address] [facility] GENERAL REPAIRER PT-1 03/23/2024 Patient Outreach [address] [address] [facility] Care Coordination (CHW outreach for SDOH PT-1 and food needs-referral completed /) 03/12/[address] [address] [facility] PT1 03/12/[address] [address] [facility] Results 03/06/[address] [address] [facility], [facility] Tinea pedis of both feet from Last 3 Months Immunizations Name Administration Dates Next Due Hep A, Adult 10/07/2017,12/09/2011 Hep B, Adolescent or Pediatric 12/22/2007,2007,06/19/2007 Influenza injectable quadriv alent IIV4 with preservative 01/19/2018,03/19/2015 Influenza injectable quadriv alent preservative free 03/31/2023,06/25/2021,05/21/2016 Influenza, IIV3, injectable 02/02/2011 Influenza, seasonal, injecta ble, preservative free 05/04/2022 MMR 10/07/2017,12/09/2011 Moderna Covid-19 Vaccine 12+ 06/25/2021,07/11/19 21,06/12/2020 Moderna Covid-19 Vaccine 6+ Bivalent 05/04/2022 Pfizer Covid-19 Vaccine 12+ 03/31/2023 Pneumococcal Polysaccharide PPSV23 07/08/2010, Tdap 11/06/2021,12/09/2011 Zoster, Recombinant 06/08/2022,11/06/2021 Family History Medical History Relation Name Comments CVA Father Arrhythmia Mother HTN Mother Colon cancer Neg Hx Prostate cancer Neg Hx Relation Name Status Comments Father Mother Social History Tobacco Use Types Packs/Day Years Used Date Smoking Tobacco: Never Smokeless Tobacco: Never Tobacco Cessation:Counseling Given: Not Answered Alcohol Use Standard Drinks/Week Comments Never 0 [...] is your housing situation today? I have corrinaraquel grant 12/09/[address] you [...] Orientation Straight 02/15/2022 10 :18 AM EDT Last Filed Vital Signs Vital Sign Reading Time Taken Comments Blood Pressure 112/65 12/14/2023 11:16 AM EDT Pulse 63 12/14/2023 11:16 AM EDT Temperature 36.6 ??C (97.8 ??F) 12/14/2023 11:16 AM E DT Respiratory Rate 20 12/14/2023 11:16 AM EDT Oxygen Saturation 98% 12/09/2023 11:06 AM EDT Inhaled Oxygen Concentration - - Weight 107 kg (235 lb) 12/14/2023 11:16 AM EDT Height 167.6 cm (5' 6 ) 12/14/2023 11:16 AM EDT Body Mass Index 37.93 12/14/2023 11:16 AM EDT Plan of Treatment Upcoming Encounters Date Type Department Care Team (Late st Contact Info) Description 05/25/2024 11:15 AM EST Office Visit [facility] MEDICINE [address] [place], [place] [phone] [place] [facility] [address] [place], [place] [phone] Health Maintenance Due Date Last Done Comments CT Colonography 1962 Colonoscopy 1962 FIT 1962 FOBT 1962 Sigmoidoscopy 1962 Derm Melanoma Skin Check 03/03/1963 Alcohol/Substance Use Screening 1974 Pneumococcal Vaccine: 50+ Years (2 of 2 - PCV) 07/09/2011 07/08/2010, 03/11/2009 RSV Patients and Patients Aged 60 years or older (1 - Risk 60-74 years 1-dose series) 2022 COVID-19 Vaccine ( season) 2023 03/31/2023, 05/04/2022, 06/25/2021, Additional history exists Influenza Vaccine (#1) 2023 , 05/04/2022, 06/25/2021, Additional history exists Depression Screening 12/08/2024 12/09/2023, 12/09/19 24 SDOH Screening 12/08/2024 12/09/2023 Tobacco Screening 12/13/2024 12/14/2023 Colorectal Cancer Screening 09/14/2025 FIT DNA/Cologuard 09/14/2025 09/22/2022, , 06/16/2022 Lipid Panel 05/24/2027 05/24/2022, 10/17, 04/07/2021, Additional history exists DTaP/Tdap/Td Vaccines (3 - Td or Tdap) 11/07/2031 11/06/2021, 12/09/2011 Hepatitis B Vaccines Discontinued 12/22/2007, 09/14/2007, 06/19/2007 Hepatitis A Vaccines Aged Out 10/07/2017, 12/09/19 12 No longer eligible based on patient's age to complete this topic Hepatitis C Screening Discontinued 09/11/2020 Zoster Vaccines Completed 06/08/2022, 11/06/2021 HIB Vaccines Aged Out No longer eligi ble based on patient's age to complete this topic HIV Screening Discontinued HPV Vaccines Aged Out No longer eligi ble based on patient's age to complete this topic IPV Vaccines Aged Out No longer eligi ble based on patient's age to complete this topic Meningococcal Vaccine Aged Out No apurva rai eligible based on patient's age to complete this topic RSV under 20 months Aged Out No longe r eligible based on patient's age to complete this topic Rotavirus Vaccines Aged Out No longer eligible based on patient's age to complete this topic Procedures Procedure Name Priority Date/Time Associated Diagnosis Comments COLOGUARD COLON CANCER SCREENING (EXTERNAL RESULTS ONLY) Routine 09/22/2022 1:58 PM EDT LIPID PANEL, STANDARD Routine 05/24/2022 1:28 PM EST Obesity (BMI 35.0-39.9 without comorbidity) Edema, unspecified type ZZZ HISTORICAL HEPATITIS C AB W/REFL TO HCV RNA, QN, PCR Routine 09/11/2020 8:34 AM EDT from Last 3 Months or Most Recently Relevant to Health Maintenance Results * Cologuard Colon Cancer Screening (09/22/2022 1:58 PM EDT) Cologuard Cancer Screen Negative Stool 09/22/2022 1:58 PM EDT [facility] POINT OF CARE TEST ENTER/EDIT ORDERABLES Final Result * (ABNORMAL) Lipid Panel, Standard (05/24/2022 1:28 PM EST) Cholesterol, Total 171 <200 mg/dL [employer] [place] [employer] HDL Cholesterol 46 > OR = 40 mg/dL [facility] [place] [employer] Triglycerides 73 <150 mg/dL [facility] [place] [employer] LDL Cholesterol 109(H) mg/dL (calc) [employer] [place] [employer] Comment: Reference range: <100 Desirable range <100 mg/dL for primary prevention; ?? <70 mg/dL for patients with CHD or diabetic patients with > or = 2 CHD risk factors. LDL-C is now calculated using the Melissa calculation, which is a validated novel method providing better accuracy than the Friedewald equation in the estimation of LDL-C. Daniel SS et al. QUEENIE. 2013;310(19): 8604-8627 (http://education.Coridea/faq/FWY259) Chol/HDLC Ratio 3.7 <5.0 (calc) [facility] [place] [employer] Non-HDL Cholesterol 125 <130 mg/dL (calc) [facility] [place] [employer] Comment: For patients with diabetes plus 1 major ASCVD risk factor, treating to a non-HDL-C goal of <100 mg/dL (LDL-C of <70 mg/dL) is considered a therapeutic option. Blood Venous blood specimen / Unknown 05/24/2022 1:28 PM EST 05/24/2022 1:28 PM EST Narrative [facility] - 05/25/2022 6:26 AM EST FASTING:YES FASTING: YES [facility] LAB BLOOD ORDERABLES Final Re sult [facility] [address] [facility] [facility], [place] [address] [employer] [place] [employer] [address] [facility], ([address]) [place] [address] * HEPATITIS C AB W/REFL TO HCV RNA, QN, PCR (09/11/2020 8:34 AM EDT) HEPATITIS C ANTIBODY NON-REACT BARBARA NON-REACT BARBARA [facility] INDEX 0.01 <1.00 [facility] Comment: ?? HCV antibody was non-reactive. There is no laboratory ?? evidence of HCV infection. ?? In most cases, no further action is required. However, if recent HCV exposure is suspected, a test for HCV RNA (test code 59024) is suggested. ?? For additional information please refer to http://education.[employer]/faq/WIA64t1 (This link is being provided for informational/ educational purposes only.) ?? 09/11/2020 8:34 AM EDT us Historical Provider HISTORICAL/NON ORDERABLE LABS Final Result [facility] [address] from Last 3 Months or Most Recently Relevant to Health Maintenance Insurance MEDICARE [facility] Care Teams Christmas Tree [employer] Manager Relationship Specialty Start Date End Date Ondina Tinoco FNP [address] [place] [id number] PCP - General Family Medicine 01/13/21
--- OUTSIDE RECORDS SUMMARY | 2024-05-21 13:24 | XMS_ITS | Encounter Summary ---
Author Organization [employer] Address [address] [facility] [place] [address] Care Team Providers Care Transferrer Name Role Phone Alejandrina [facility] Primary Care Provider [phone] Reason for Visit * Reason Onset Date Comments PT1 04/27/2024 Encounter Details Date Type Department Care Team ([facility] st Contact Info) Description 04/27/2024 Telephone [facility] MEDICINE [address] [place] [address] [facility] [address] [place] [address] PT1 Social History Tobacco Use Types Packs/Day [...] encounter Miscellaneous Notes * Telephone Encounter - Janet Morris - 04/27/2024 11:24 AM EST Patient calling requesting PT1 Home Address verified: Y/N: Yes Provider name or facility name: [facility] Facility Address: [address] [place] [address] Escort needed: Y/N: No Do you have a wheelchair: Y/N: No If yes- Manual or electric: n/a Visits: 1 x a month Patient calling requesting PT1 Home Address verified: Y/N: Yes Provider name or facility name: [facility] Facility Address: [address] [place] [address] Escort needed: Y/N: No Do you have a wheelchair: Y/N: No If yes- Manual or electric: n/a Visits: 2 x month documented in this encounter Plan of Treatment Upcoming Encounters Date Type Department Care Team (Late st Contact Info) Description 05/25/2024 11:15 AM EST Office Visit [facility] MEDICINE [address] [place] [address] Ondina Tinoco FNP [address] [place] [address] documented as of this encounter Visit Diagnoses Not on filedocumented in this encounter Additional Health Concerns Assessment Noted Time PHQ-9 Depression Total Score: 0 12/09/19 24 11:12 AM EDT documented as of this encounter Care Teams Transferrer Relationship Specialty Start Date End Date Ondina Tinoco FNP [address] [place] [address] PCP - General Family Medicine 01/13/21 documented as of this encounter
--- OUTSIDE RECORDS SUMMARY | 2024-05-21 13:24 | XMS_ITS | Encounter Summary ---
Author Organization [employer] Address [address] [facility] [address] [place] [address] Care Team Providers Care Laundry Supervisor Name Role Phone Alejandrina [facility] Primary Care Provider [phone] Reason for Visit * Reason Onset Date Comments Pt1 05/04/2024 Encounter Details Date Type Department Care Team ([facility] st Contact Info) Description 05/04/2024 Telephone [facility] MEDICINE [address] [place] [address] [facility] [address] [place] [address] Pt1 Social History Tobacco Use Types Packs/Day Years [...] encounter Miscellaneous Notes * Telephone Encounter - Juan Carlos Fu - 05/04/2024 11:05 AM EST PT1 approved [facility] at [facility]. [address] [facility] [address] Expires 08/02/2024 1x visits a month will send pt a letter of denial or approval documented in this encounter Plan of Treatment Upcoming Encounters Date Type Department Care Team (Late st Contact Info) Description 05/25/2024 11:15 AM EST Office Visit [facility] MEDICINE [address] [place] [address] [place] Ondina [facility] [address] [place] [address] documented as of this encounter Visit Diagnoses Not on filedocumented in this encounter Additional Health Concerns Assessment Noted Time PHQ-9 Depression Total Score: 0 12/09/19 24 11:12 AM EDT documented as of this encounter Care Teams Laundry Supervisor Relationship Specialty Start Date End Date [place] [address] [place] [address] PCP - General Family Medicine 01/13/21 documented as of this encounter
--- OUTSIDE RECORDS SUMMARY | 2024-05-21 13:24 | XMS_ITS | Encounter Summary ---
Author Organization [employer] Address [address] [facility] [address] [place] [address] Care Team Providers Care Children'S Nursery Assistant Name Role Phone [facility] Primary Care Provider [phone] Reason for Visit * Reason Comments Med Refill Encounter Details Date Type Department Care Team ([facility] st Contact Info) Description 04/27/2023 Refill [facility] MEDICINE [address] [place], [place] [phone] [facility] [address] [place] [address] Social History Tobacco Use Types Packs/Day Years [...] Date Recorded Patient Health Questionnaire-9 Score 0 01/28/2023 Housing Stability Answer Date Recorded What is your housing situation today? I have corrina grant 02/09/[address] you li ve. Do you have problems with any of the following? None of the above 02/09/2023 Food Insecurity Answer Date Recorded Within the past 12 months, y ou worried that your food would run out before you got money to buy more: Never True 02/09/2023 Within the past 12 months,th e food you bought just didn't last and you didn't have enough money to get more: Never True Transportation Answer Date Recorded In the past 12 months, has l ack of transportation kept you from medical appts, meetings, work or from getting things needed for daily living? No 02/09/2023 Utilities Answer Date Recorded In the past 12 months, has t he electric, gas, oil or water company threatened to shut off services in your home? No 02/09/2023 Depression Answer Date Recorded Patient Health Questionnaire-2 Score 0 01/28/2023 Sex and Gender Information Value Date Recorded Sex Assigned at Male 02/15/2022 10:18 AM EDT Legal Sex Male 10:18 AM EDT Gender Identity Male 02/15/2022 10:18 AM EDT Sexual Orientation Straight 02/15/2022 10 :18 AM EDT documented as of this encounter Plan of Treatment Upcoming Encounters Date Type Department Care Team (Late st Contact Info) Description 05/25/2024 11:15 AM EST Office Visit [facility] MEDICINE [address] [place] [address] Ondina Tinoco FNP [address] [place] [address] documented as of this encounter Visit Diagnoses Not on filedocumented in this encounter Additional Health Concerns Assessment Noted Time PHQ-9 Depression Total Score: 0 01/29/20 23 11:56 AM EDT documented as of this encounter Care Teams Children'S Nursery Assistant Relationship Specialty Start Date End Date Ondina Tinoco FNP [address] [place] [address] PCP - General Family Medicine 01/13/21 documented as of this encounter
--- OUTSIDE RECORDS SUMMARY | 2024-05-21 13:24 | XMS_ITS | Encounter Summary ---
Author Organization [email or web address] Address [address] 7t [place] [address] Care Team Providers Care Product Technician Name Role Phone [facility] Primary Care Provider [phone] Reason for Visit * Reason Comments Med Refill Encounter Details Date Type Department Care Team ([facility] st Contact Info) Description 04/13/2024 Refill [facility] [address] [place], [place] [phone] [facility] 230 [place] [address] Class 2 severe obesity due to excess calories with serious comorbidity and body mass index (BMI) of 38.0 to 38.9 in adult (CMS/HCC); Mild intermittent asthma without complication; Chronic bilateral low back pain without sciatica Social History Tobacco Use Types Packs/Day Years [...] 05/25/2024 11:15 AM EST Office Visit [facility] [address] [place] [address] [facility] 230 [place] [address] documented as of this encounter Visit Diagnoses Diagnosis Class 2 severe obesity due to excess calories with serious comorbidity and body mass index (BMI) of 38.0 to 38.9 in adult (CMS/HCC) Mild intermittent asthma without complication Chronic bilateral low back pain without sciatica documented in this encounter Additional Health Concerns Assessment Noted Time PHQ-9 Depression Total Score: 0 12/09/19 24 11:12 AM EDT documented as of this encounter Care Teams Product Technician Relationship Specialty Start Date End Date [facility] [address] [place] [address] PCP - General Family Medicine 01/13/21 documented as of this encounter
--- OUTSIDE RECORDS SUMMARY | 2024-05-21 13:24 | XMS_ITS | Encounter Summary ---
Author Organization [employer] Address [address] 7[address] [place] [address] Care Team Providers Care Expanding Machine Operator Name Role Phone [facility] Primary Care Provider [phone] Reason for Visit * Reason Comments Med Refill Encounter Details Date Type Department Care Team ([facility] st Contact Info) Description 05/17/2024 Refill [facility] [address] [place], [place] [phone] [facility] 230 [place] [address] Social History Tobacco Use Types Packs/Day Years [...] 11:15 AM EST Office Visit [facility] [address] [place] [address] Ondina Tinoco FNP 230 [place] [address] documented as of this encounter Visit Diagnoses Not on filedocumented in this encounter Additional Health Concerns Assessment Noted Time PHQ-9 Depression Total Score: 0 12/09/19 24 11:12 AM EDT documented as of this encounter Care Teams Expanding Machine Operator Relationship Specialty Start Date End Date Ondina Tinoco FNP 230 [place] [address] PCP - General Family Medicine 01/13/21 documented as of this encounter
--- OUTSIDE RECORDS SUMMARY | 2024-05-21 13:24 | XMS_ITS | Encounter Summary ---
Author Organization [employer] Address [address] 7t [place] [address] Care Team Providers Care Certified Prosthetist Name Role Phone [facility] Primary Care Provider Reason for Visit * Reason Onset Date Comments PT-1 04/04/2024 Encounter Details Date Type Department Care Team ([facility] st Contact Info) Description 04/04/2024 Telephone [facility] 230 [place] [address] [facility] 230 [place] [address] PT-1 Social History Tobacco Use Types Packs/Day Years [...] encounter Miscellaneous Notes * Telephone Encounter - Torres Mccoy - 04/04/2024 4:18 PM EST 1.Patient calling requesting PT1 Home Address verified: Y/N: Yes Provider name or facility name: [facility] Escort needed: Y/N: No Do you have a wheelchair: Y/N: No If yes- Manual or electric: Visits: (3) (xmonthly) 2. Patient calling requesting PT1 Home Address verified: Y/N: Yes Provider name or facility name: [address] [place] [address] Escort needed: Y/N: No Do you have a wheelchair: Y/N: No If yes- Manual or electric: Visits: (3) ( x monthly) documented in this encounter Plan of Treatment Upcoming Encounters Date Type Department Care Team (Late st Contact Info) Description 05/25/2024 11:15 AM EST Office Visit [facility] 230 [place] [address] [facility], [facility] 230 [place] [address] documented as of this encounter Visit Diagnoses Not on filedocumented in this encounter Additional Health Concerns Assessment Noted Time PHQ-9 Depression Total Score: 0 12/09/19 24 11:12 AM EDT documented as of this encounter Care Teams Certified Prosthetist Relationship Specialty Start Date End Date Ondina Tinoco FNP [address] [place] [address] PCP - General Family Medicine 01/13/21 documented as of this encounter
--- OUTSIDE RECORDS SUMMARY | 2024-05-21 13:24 | XMS_ITS | Encounter Summary ---
Author Organization [employer] Address [address] [facility] [address] 7t [place] [address] Care Team Providers Care Bar Hostess Name Role Phone [facility] Primary Care Provider [phone] Reason for Visit * Reason Comments Med Refill Encounter Details Date Type Department Care Team ([facility] st Contact Info) Description 03/06/2024 Refill [facility] [address] [place] [address] [facility] 230 [place] [address] Tinea pedis of both feet Social History Tobacco Use Types Packs/Day Years [...] Description 05/25/2024 11:15 AM EST Office Visit [facility] [address] [place] [address] Ondina Tinoco FNP 230 [place] [address] documented as of this encounter Visit Diagnoses Diagnosis Tinea pedis of both feet documented in this encounter Additional Health Concerns Assessment Noted Time PHQ-9 Depression Total Score: 0 12/09/19 24 11:12 AM EDT documented as of this encounter Care Teams Bar Hostess Relationship Specialty Start Date End Date Ondina Tinoco FNP 230 [place] [address] PCP - General Family Medicine 01/13/21 documented as of this encounter
--- OUTSIDE RECORDS SUMMARY | 2024-05-21 13:24 | XMS_ITS | Encounter Summary ---
Author Organization [employer] Address [address] [facility] [address] 7t [place] [address] Care Team Providers Care Right Of Way Manager Name Role Phone Alejandrina [facility] Primary Care Provider [phone] Reason for Visit * Reason Onset Date Comments PT1 03/12/2024 Encounter Details Date Type Department Care Team ([facility] st Contact Info) Description 03/12/2024 Telephone [facility] 230 [place] [address] [facility] 230 [place] [address] PT1 Social History Tobacco Use Types Packs/Day [...] encounter Miscellaneous Notes * Telephone Encounter - Gregor Benz - 03/23/2024 2:06 PM EST Tc from pt calling in regards to message prior stating pt-1 was denied and he is was advised to contact pcp to call transportation service to have verify why it was denied. If any questions you can contact pt at [phone]. (Syriac Speaker) * Telephone Encounter - Sammie Bajwa - 03/12/2024 3:23 PM EST Patient calling requesting PT1 Home Address verified: Y/N: Yes Provider name or facility name: [facility] Facility Address: [address] [place] [address], [facility] Escort needed: Y/N: No Do you have a wheelchair: Y/N: No If yes- Manual or electric: Visits: 4x a month for 12 months documented in this encounter Plan of Treatment Upcoming Encounters Date Type Department Care Team ([facility] st Contact Info) Description 05/25/2024 11:15 AM EST Office Visit [facility] 230 [place] [address] Ondina Tinoco FNP 230 [place] [address] documented as of this encounter Visit Diagnoses Not on filedocumented in this encounter Additional Health Concerns Assessment Noted Time PHQ-9 Depression Total Score: 0 12/09/19 24 11:12 AM EDT documented as of this encounter Care Teams Right Of Way Manager Relationship Specialty Start Date End Date Ondina Tinoco FNP 230 [place] [address] PCP - General Family Medicine 01/13/21 documented as of this encounter
--- OUTSIDE RECORDS SUMMARY | 2024-05-21 13:24 | XMS_ITS | Encounter Summary ---
Author Organization [employer] Address [address] 7t [place] [address] Care Team Providers Care Appraiser Boats And Marine Name Role Phone [facility] Primary Care Provider [phone] Reason for Visit * Reason Comments Care Coordination CHW outreach for SDO H PT-1 and food needs-LVM Encounter Details Date Type Department Care Team (Latest Contact Info) Description 05/01/2024 Patient Outreach [facility] 230 [place] [address] [facility] 230 [place] [address] Care Coordination (CHW outreach for SDOH PT-1 and food needs-LVM ) Social History Tobacco Use Types Packs/Day Years [...] AM EDT documented as of this encounter Progress Notes * Milton Lorenz - 05/01/2024 2:20 PM EST CHW Milton Lorenz, placed outbound call to patient for assistance with SDOH as a referral was placed by the provider. Patient had screened positive for the following SDOH insecurities. No answer atthis time. Patient's name and were not confirmed. CHW left detailed message and provided contact information requesting return call for assistance. Patient educated on extended clinic hours on Mondays through Wednesdays, and Walk-In Urgent Care Located in [facility]. Patient provided with after-hours line for [facility], , which offer night time triage service and option to transfer toon call provider if needed. documented in this encounter Plan of Treatment Upcoming Encounters Date Type Department Care Team ([facility] st Contact Info) Description 05/25/2024 11:15 AM EST Office Visit [facility] 230 [place] [address] Ondina Tinoco FNP 230 [place] [address] documented as of this encounter Visit Diagnoses Not on filedocumented in this encounter Additional Health Concerns Assessment Noted Time PHQ-9 Depression Total Score: 0 12/09/19 24 11:12 AM EDT documented as of this encounter Care Teams Appraiser Boats And Marine Relationship Specialty Start Date End Date Ondina Tinoco FNP 230 [place] [address] PCP - General Family Medicine 01/13/21 documented as of this encounter
--- OUTSIDE RECORDS SUMMARY | 2024-05-21 13:24 | XMS_ITS | Encounter Summary ---
Author Organization [employer] Address [address]t [place] [address] Care Team Providers Care Vp Of Technology Name Role Phone [facility] Primary Care Provider [phone] Reason for Visit * Reason Comments Care Coordination CHW outreach for SDO H PT-1 and food needs-referral completed Encounter Details Date Type Department Care Team (Latest Contact Info) Description 04/27/2024 Patient Outreach [facility] 230 [place] [address] [facility] 230 [place] [address] Care Coordination (CHW outreach for SDOH PT-1 and food needs-referral completed /) Social History Tobacco Use Types Packs/Day Years [...] encounter Progress Notes * Milton Lorenz - 04/27/2024 11:39 AM EST CHW Milton Lorenz, placed outbound call to patient for assistance with SDOH as a referral was received by the provider. Patient's name and were confirmed. Patient screened positive for the following SDOH food insecurities. CHW referral patient to the local list of pantries in the area for help. PT-1 requested was send out in behalf of patient for futures appt. Patient verbalizes understandin g, and able to agree with plan to follow up. Patient educated on extended clinic hours on Mondays through Wednesdays, and Walk-In Urgent Care Located in [facility]. Patient provided with after-hours line for [facility], , which offer night time triage service and option to transfer to occupational health specialist provider if needed. documented in this encounter Plan of Treatment Upcoming Encounters Date Type Department Care Team (Late st Contact Info) Description 05/25/2024 11:15 AM EST Office Visit [facility] 230 [place] [address] Ondina Tinoco FNP 230 [place] [address] documented as of this encounter Visit Diagnoses Not on filedocumented in this encounter Additional Health Concerns Assessment Noted Time PHQ-9 Depression Total Score: 0 12/09/19 24 11:12 AM EDT documented as of this encounter Care Teams Vp Of Technology Relationship Specialty Start Date End Date Ondina Tinoco FNP 230 [place] [address] PCP - General Family Medicine 01/13/21 documented as of this encounter
--- OUTSIDE RECORDS SUMMARY | 2024-05-21 13:24 | XMS_ITS | Encounter Summary ---
Author Organization [employer] Address [address] [facility] [address] [facility] [facility] [address] 7t [place] [address] Care Team Providers Care Help Desk Consultant Name Role Phone Alejandrina [facility] Primary Care Provider [phone] Reason for Visit * Reason Onset Date Comments PT1 05/01/2024 Encounter Details Date Type Department Care Team ([facility] st Contact Info) Description 05/01/2024 Telephone [facility] 230 [place] [address] [facility] 230 [place] [address] PT1 Social History Tobacco Use Types Packs/Day [...] encounter Miscellaneous Notes * Telephone Encounter - Calista Terry - 05/01/2024 1:59 PM EST Patient calling requesting PT1 Home Address verified: Y/N: Yes Provider name or facility name: [facility]. [address] [place] [address] Escort needed: Y/N: No Do you have a wheelchair: Y/N: No If yes- Manual or electric: N/A Visits: (2x monthly) documented in this encounter Plan of Treatment Upcoming Encounters Date Type Department Care Team (Late st Contact Info) Description 05/25/2024 11:15 AM EST Office Visit [facility] 230 [place], [place] [phone] [facility] 230 [place] [address] documented as of this encounter Visit Diagnoses Not on filedocumented in this encounter Additional Health Concerns Assessment Noted Time PHQ-9 Depression Total Score: 0 12/09/19 24 11:12 AM EDT documented as of this encounter Care Teams Help Desk Consultant Relationship Specialty Start Date End Date [place], [place] [address] [place] [address] PCP - General Family Medicine 01/13/21 documented as of this encounter
[2024-05-21 14:45] LABS: Prostate Specific Antigen 3.66 ng/mL (<0.05-4.0)
== END 2024-05-21 11:59 | disposition home or self-care (01) ==
LOC: HO.HHCL 11:58
PROVIDERS: Visit Provider Registered Nurse
DX: Z12.5 Encounter for screening for malignant neoplasm of prostate (principal)
CPT/HCPCS: 36415; 84153

== ENCOUNTER 2024-05-29 12:49 | Outpatient (REF) | payer MEDICAID, SELFPAY ==
--- OUTSIDE RECORDS SUMMARY | 2024-05-29 13:53 | XMS_ITS | Encounter Summary ---
Author Organization [employer] Address [address] 7t [place] [address] Care Team Providers Care Fish And Game Club Manager Name Role Phone Ondina Tinoco [facility] Primary Care Provider [phone] Reason for Visit * Reason Comments Follow-up Encounter Details Date Type Department Care Team ([facility] st Contact Info) Description 05/25/2024 11:15 AM EST Office Visit [facility] 230 [place] [address] [place], [facility] 230 [place] [address] Chronic bilateral low back pain without sciatica; Encounter for immunization Social History Tobacco Use Types Packs/Day Years Used Date Smoking Tobacco: Never Smokeless Tobacco: Never Tobacco Cessation:Counseling Given: Not Answered Alcohol Use Standard Drinks/Week Comments Never 0 (1 standard drink = 0.6 oz pur e alcohol) Depression Answer Date Recorded Patient Health Questionnaire-9 Score 0 05/25/2024 Patient Health Questionnaire-9 Score 0 05/25/2024 Last PHQ-9: Questionnaire Data Not on file 0 05/25/2024 Housing Stability Answer Date Recorded What is [...] Date Recorded Patient Health Questionnaire-2 Score 0 05/25/2024 Internet Access Answer Date Recorded Internet Access Q1 Yes 12/16/2023 Internet Access Q2 Not on file 12/16/2023 Sex and Gender Information Value Date Recorded Sex Assigned at Male 02/15/2022 10:18 AM EDT Legal Sex Male 10:18 AM EDT Gender Identity Male 02/15/2022 10:18 AM EDT Sexual Orientation Straight 02/15/2022 10 :18 AM EDT documented as of this encounter Last Filed Vital Signs Vital Sign Reading Time Taken Comments Blood Pressure 124/74 05/25/2024 11:05 AM EST Pulse 73 05/25/2024 11:05 AM EST Temperature 36.3 ??C (97.4 ??F) 05/25/2024 11:[address] Respiratory Rate 20 05/25/2024 11:05 AM EST Oxygen Saturation 98% 05/25/2024 11:05 AM EST Inhaled Oxygen Concentration - - Weight 115 kg (253 lb 12.8 oz) 05/25/2024 11:05 AM EST Height 167.6 cm (5' 6 ) 05/25/2024 11:05 AM EST Body Mass Index 40.96 05/25/2024 11:05 AM EST documented in this encounter Plan of Treatment Not on file documented as of this encounter Visit Diagnoses Diagnosis Chronic bilateral low back pain without sciatica Encounter for immunization documented in this encounter Additional Health Concerns Assessment Noted Time PHQ-9 Depression Total Score: 0 05/25/19 25 11:13 AM EST documented as of this encounter Care Teams Fish And Game Club Manager Relationship Specialty Start Date End Date Ondina Tinoco FNP [address] [place] [address] PCP - General Family Medicine 01/13/21 documented as of this encounter
--- OUTSIDE RECORDS SUMMARY | 2024-05-29 13:53 | XMS_ITS | Encounter Summary ---
Author Organization [employer] Address [address] [place] [address] Care Team Providers Care Repairer General Name Role Phone Alejandrina [facility] Primary Care Provider [phone] Reason for Visit * Reason Onset Date Comments PT1 03/12/2024 Encounter Details Date Type Department Care Team ([facility] st Contact Info) Description 03/12/2024 Telephone [facility] 230 [place] [address] [place], [facility] 230 [place] [address] PT1 Social History Tobacco Use Types Packs/Day [...] any questions you can contact pt at [phone]. ([place]an Speaker) * Telephone Encounter - Sammie Bajwa - 03/12/2024 3:23 PM EST Patient calling requesting PT1 Home Address verified: Y/N: Yes Provider name or facility name: [facility] Facility Address: [address] [place] [address] Escort needed: Y/N: No Do you have [...] documented as of this encounter Care Teams Repairer General Relationship Specialty Start Date End Date Ondina Tinoco FNP [address] [place] [address] [place] [address] PCP - General Family Medicine 01/13/21 documented as of this encounter
--- OUTSIDE RECORDS SUMMARY | 2024-05-29 13:53 | XMS_ITS | Encounter Summary ---
Author Organization [employer] Address [address]t [place] [address] Care Team Providers Care Supervisor Fishing Name Role Phone Alejandrina [facility] Primary Care Provider [phone] Reason for Visit * Reason Onset Date Comments Pt1 05/04/2024 Encounter Details Date Type Department Care Team ([facility] st Contact Info) Description 05/04/2024 Telephone [facility] 230 [place] [address] [place], [facility] 230 [place] [address] Pt1 Social History Tobacco Use Types Packs/Day [...] AM EST PT1 approved [facility] at [facility]. [address] [facility] [address] Expires 08/02/2024 1x visits a month will send pt a letter of denial or approval documented in this encounter Plan of Treatment Not on file documented as of this encounter Visit Diagnoses Not on filedocumented in this encounter Additional Health Concerns Assessment Noted Time PHQ-9 Depression Total Score: 0 12/09/19 24 11:12 AM EDT documented as of this encounter Care Teams Supervisor Fishing Relationship Specialty Start Date End Date Onidna Tinoco FNP 230 [place] [address] PCP - General Family Medicine 01/13/21 documented as of this encounter
--- OUTSIDE RECORDS SUMMARY | 2024-05-29 13:53 | XMS_ITS | Clinical Summary ---
Author Organization [employer] Address [address] [facility] 7t [place] [address] Care Team Providers Care Content Producer Name Role Phone Ondina Tinoco FINISHED CIGAR MAKER Primary Care Provider Allergies No known active allergies Medications Diclofenac [...] (BMI) of 38.0 to 38.9 in adult ([facility]) MIX 2-3 TEASPOONFUL OF POWDER IN 8 OUNCES OF WATER THREE TIMES DAILY BEFORE A MEAL 284 g 11 024 Active topiramate (Topamax) 50 MG tabletIndications :Class 2 severe obesity due to excess calories with serious comorbidity and body mass index (BMI) of 38.0 to 38.9 in adult ([facility]) TAKE 2 TABLETS BY MOUTH EVERY DAY BEFORE SUPPER 60 tablet 024 Active D3 Super Strength 50 MCG (1999 UT) capsule TAKE 1 CAPSULE BY MOUTH EVERY DAY 90 capsule 025 Active ibuprofen 600 MG tabletIndications :Chronic bilateral low back pain without sciatica TAKE 1 Tablet BY MOUTH TWICE DAILY WITH FOOD NEEDED FOR FOR BACKACHE 60 tablet 025 Active cholecalciferol (Vitamin D-3) 50 MCG (1999 UT) capsule take 1 tablet by oral route daily 022 2024 Discontinued ibuprofen 600 MG tabletIndications :Chronic bilateral low back pain without sciatica TAKE 1 Tablet BY MOUTH TWICE DAILY WITH FOOD NEEDED FOR FOR BACKACHE 60 tablet 024 2024 Discontinued(R eorder (will not trigger notification to Pharmacy)) Active Problems Problem Noted Date Diagnosed Date Mild intermittent asthma 05/10/2022 Overview (05/10/2022): ?? PFT's from 05/2021, results concerning for possible interstitial lung disease with recommendation for pulmonary referral. ?? Seen by [facility] pulmonology 12/2021 - per visit note mild [...] Neg 2017 Vision Exam: Previously referred to [facility] vision care Dental Care: [facility] Dental Edema 05/04/2022 Overview (05/10/2022): ?? Chronic [...] degenerative changes. Followed by pain management in [place] and reports moderate relief with steroid injections. [...] Encounters Date Type Department Care Team Description 05/25/2024 11:15 AM EST Office Visit [facility] [place] [address] Ondina Tinoco FNP Chronic bilateral low back pain without sciatica; Encounter for immunization 05/25/2024 Travel 05/22/2024 Telephone [facility] [address] [place], [place] [address]hern[place] [address] Ondina Tinoco FNP stable lab letter 05/17/2024 [address] [place] [address] Ondian Tinoco FNP 05/04/2024 [address] [place] [address] Ondina Tinoco FNP Pt1 05/01/2024 Patient Outreach [address] [address] Ondina Tinoco FNP Care Coordination (CHW outreach for SDOH PT-1 and food needs-LVM ) 05/01/2024 Telephone [facility] [place] [address] Ondina Tinoco FNP PT1 04/27/2024 Patient Outreach [address] [place] [address] Ondina Tinoco FNP Care Coordination (CHW outreach for SDOH PT-1 and food needs-referral completed /) 04/27/2024 Telephone [facility] [address] [place], [place] [address]hern[place] [address] Ondina Tinoco FNP PT1 04/13/2024 Refill [facility] [address] [facility] [place] [address] Ondina Tinoco FNP Chronic bilateral low back pain without sciatica; Class 2 severe obesity due to excess calories with serious comorbidity and body mass index (BMI) of 38.0 to 38.9 in adult ([facility]) 04/13/2024 Refill [facility] [address] [place] [address] Ondina Tinoco FNP Class 2 severe obesity due to excess calories with serious comorbidity and body mass index (BMI) of 38.0 to 38.9 in adult ([facility]); Mild intermittent asthma without complication; Chronic bilateral low back pain without sciatica 04/05/2024 Patient Outreach [facility] [address] [place] [address] Ondina Tinoco FNP Care Coordination (CHW outreach for SDOH PT-1 - LVM ) 04/04/2024 Telephone [facility] [address] [place] [address] Ondina Tinoco FNP PT-1 03/23/2024 Patient Outreach [facility] [address] [place] [address] CotatiOndina FINISHED CIGAR MAKER Care Coordination (CHW outreach for SDOH PT-1 and food needs-referral completed /) 03/12/2024 Telephone [facility] [address] [place] [address] Ondina Tinoco FNP PT1 03/12/[address] [address] AlejandrinaOndina saravia FNP Results 03/06/2024 Refill [facility] [address] [place] [address] CotatiOndina FINISHED CIGAR MAKER Tinea pedis of both feet from Last 3 Months Immunizations Name Administration Dates Next Due Hep A, Adult 10/07/2017,12/09/2011 Hep B, Adolescent or Pediatric 12/22/2007,2007,06/19/2007 Influenza injectable quadriv alent IIV4 with preservative 01/19/2018,03/19/2015 Influenza injectable quadriv alent preservative free 03/31/2023,06/25/2021,05/21/2016 Influenza, IIV3, injectable 02/02/2011 Influenza, seasonal, injecta ble, preservative free 05/25/2024,05/04/2022 MMR 10/07/2017,12/09/2011 Moderna Covid-19 Vaccine 12+ 06/25/2021,07/11/19 21,06/12/2020 Moderna Covid-19 Vaccine 6+ Bivalent 05/04/2022 Pfizer Covid-19 Vaccine 12+ 05/25/2024, Pneumococcal Polysaccharide PPSV23 07/08/2010, Tdap 11/06/2021,12/09/2011 Zoster, [...] Mass Index 40.96 05/25/2024 11:05 AM EST Plan of Treatment Health Maintenance Due Date Last Done Comments CT Colonography 1962 Colonoscopy 1962 FIT 1962 FOBT 1962 Sigmoidoscopy 1962 Derm Melanoma Skin Check 03/03/1963 Alcohol/Substance Use Screening 1974 Pneumococcal Vaccine: 50+ Years (2 of 2 - PCV) 07/09/2011 07/08/2010, 03/11/2009 RSV Patients and Patients Aged 60 years or older (1 - Risk 60-74 years 1-dose series) 2022 Depression Screening 05/25/2025 05/25/2024, 05/25/19 25 SDOH Screening 05/25/2025 05/25/2024 Tobacco Screening 05/25/2025 05/25/2024 Colorectal Cancer Screening 09/14/2025 FIT DNA/Cologuard 09/14/2025 [...] Discontinued 09/11/2020 Zoster Vaccines Completed 06/08/2022, 11/06/2021 COVID-19 Vaccine Completed 05/25/2024, , 05/04/2022, Additional history exists Influenza Vaccine Completed 05/25/2024, , 05/04/2022, Additional history exists HIB Vaccines Aged Out No longer eligi [...] Procedure Name Priority Date/Time Associated Diagnosis Comments PSA, TOTAL Routine 05/21/2024 12:00 PM EST Healthcare maintenance COLOGUARD COLON CANCER SCREENING (EXTERNAL RESULTS ONLY) Routine 09/22/2022 1:58 PM EDT LIPID PANEL, STANDARD Routine 05/24/2022 1:28 PM EST Obesity (BMI 35.0-39.9 without comorbidity) Edema, unspecified type ZZZ HISTORICAL HEPATITIS C AB W/REFL TO HCV RNA, QN, PCR Routine 09/11/2020 8:34 AM EDT from Last 3 Months or Most Recently Relevant to Health Maintenance Results * PSA,Total (05/21/2024 12:00 PM EST) Prostate Specific Antigen 3.66 <0.05 - 4.0 ng/mL [facility] Comment:PSA methodology: Imani Armendariz i ChemiluminescentMicroparticle Immunoassay (CMIA) Blood Venous blood specimen / Unknown 05/21/2024 12:00 PM EST 05/21/2024 1:19 PM EST [facility] LAB BLOOD ORDERABLES Final Re sult [facility] [address] [place] [phone] * Cologuard Colon Cancer Screening (09/22/2022 1:58 PM EDT) Pathologist [facility] Cologuard Cancer Screen Negative Stool 09/22/2022 1:58 PM EDT [facility] POINT OF CARE TEST ENTER/EDIT ORDERABLES Final Result * (ABNORMAL) Lipid Panel, Standard (05/24/2022 1:28 PM EST) [facility] Cholesterol, Total 171 <200 mg/dL [facility] [place] [facility] HDL Cholesterol 46 > OR = 40 mg/dL [facility] [place] [facility] Triglycerides 73 <150 mg/dL [facility] [place] [facility] LDL Cholesterol 109(H) mg/dL (calc) [facility] [place] [facility] Comment: Reference range: <100 Desirable range <100 mg/dL for primary prevention; ?? <70 mg/dL for patients with CHD or diabetic patients with > or = 2 CHD risk factors. LDL-C is now calculated using the Melissa calculation, which is a validated novel method providing better accuracy than the Friedewald equation in the estimation of LDL-C. Daniel DAVE et al. QUEENIE. 2013;310(19): 4871-8727 (http://education.[employer]/faq/DIQ686) Chol/HDLC Ratio 3.7 <5.0 (calc) [facility] [place] [facility] Non-HDL Cholesterol 125 <130 mg/dL (calc) [facility] [place] [facility] Comment: For patients with diabetes plus 1 major ASCVD risk factor, treating to a non-HDL-C goal of <100 mg/dL (LDL-C of <70 mg/dL) is considered a therapeutic option. Blood Venous blood specimen / Unknown 05/24/2022 1:28 PM EST 05/24/2022 1:28 PM EST Narrative [facility] - 05/25/2022 6:26 AM EST FASTING:YES FASTING: YES [facility] FINISHED CIGAR MAKER LAB BLOOD ORDERABLES Final Re sult Performing Organization Address City/[facility]/ZIP Co de Phone Number [facility] [address], [place] [address] [facility] [place] [facility] [address] [facility], (Nl[address]) [place] [address] * HEPATITIS C AB W/REFL TO HCV RNA, QN, PCR (09/11/2020 8:34 AM EDT) HEPATITIS C ANTIBODY NON-REACT BARBARA NON-REACT BARBARA [facility] INDEX 0.01 <1.00 [facility] Comment: ?? HCV antibody was non-reactive. There is no laboratory ?? evidence of HCV infection. ?? In most cases, no further action is required. However, if recent HCV exposure is suspected, a test for HCV RNA (test code 64562) is suggested. ?? For additional information please refer to http://education.[employer]/faq/AAT14r1 (This link is being provided for informational/ educational purposes only.) ?? 09/11/2020 8:34 AM EDT Historical Provider HISTORICAL/NON ORDERABLE LABS Final Result [facility] [address] from Last 3 Months or Most Recently Relevant to Health Maintenance Insurance MEDICARE [facility] STANDARD Care Teams Content Producer Relationship Specialty Start Date End Date Ondina Tinoco FNP [address] [place] [address] PCP - General Family Medicine 01/13/21
--- OUTSIDE RECORDS SUMMARY | 2024-05-29 13:53 | XMS_ITS | Encounter Summary ---
Author Organization [employer] Address [address] 7t [place] [address] Care Team Providers Care Sheep And Wheat Farmer Name Role Phone Alejandrina [facility] Primary Care Provider [phone] Reason for Visit * Reason Onset Date Comments PT-1 04/04/2024 Encounter Details Date Type Department Care Team ([facility] st Contact Info) Description 04/04/2024 Telephone [facility] [address] [place] [address] [facility] [address] [place] [address] PT-1 Social History Tobacco Use Types Packs/Day [...] Y/N: Yes Provider name or facility name: [facility] Escort needed: Y/N: No Do you have a wheelchair: Y/N: No If yes- Manual or electric: Visits: (3) (xmonthly) 2. Patient calling requesting PT1 Home Address verified: Y/N: Yes Provider name or facility name: [address] [place] [address] Escort needed: Y/N: No Do you have [...] documented as of this encounter Care Teams Sheep And Wheat Farmer Relationship Specialty Start Date End Date Ondina Tinoco FNP [address] [place] [address] PCP - General Family Medicine 01/13/21 documented as of this encounter
--- OUTSIDE RECORDS SUMMARY | 2024-05-29 13:53 | XMS_ITS | Encounter Summary ---
Author Organization [employer] Address [address] 7t [place] [address] Care Team Providers Care Access Analyst Name Role Phone Ondina Tinoco ROAD GRADER OPERATOR Primary Care Provider [phone] Encounter Details Date Type Department Care Team ([facility] st Contact Info) Description 03/10/2022 Abstract [facility] [address] [place] [address] Provider, MD Yenny Social History Tobacco Use Types Packs/Day Years Used Date Smoking Tobacco: Never Assessed Sex and Gender Information Value Date Recorded Sex Assigned at Male 02/15/2022 10:18 AM EDT Legal Sex Male 10:18 AM EDT Gender Identity Male 02/15/2022 10:18 AM EDT Sexual Orientation Straight 02/15/2022 10 :18 AM EDT documented as of this encounter Plan of Treatment Not on file documented as of this encounter Visit Diagnoses Not on filedocumented in this encounter Care Teams Access Analyst Relationship Specialty Start Date End Date Ondina Tinoco FNP [address] [place] [address] PCP - General Family Medicine 01/13/21 documented as of this encounter
--- OUTSIDE RECORDS SUMMARY | 2024-05-29 13:53 | XMS_ITS | Encounter Summary ---
Author Organization [employer] Address [address] [facility] [address] 7t [place] [address] Care Team Providers Care Solid Waste Facility Operator Name Role Phone Alejandrina [facility] Primary Care Provider [phone] Reason for Visit * Reason Onset Date Comments PT1 05/01/2024 Encounter Details Date Type Department Care Team ([facility] st Contact Info) Description 05/01/2024 Telephone [facility] [address] [place] [address] [place], [facility] [address] [place] [address] PT1 Social History Tobacco Use Types Packs/Day [...] Y/N: Yes Provider name or facility name: [facility]. [address] [place] [address] Escort needed: Y/N: No Do you have [...] documented as of this encounter Care Teams Solid Waste Facility Operator Relationship Specialty Start Date End Date Ondina Tinoco FNP [address] [place] [address] PCP - General Family Medicine 01/13/21 documented as of this encounter
--- OUTSIDE RECORDS SUMMARY | 2024-05-29 13:53 | XMS_ITS | Encounter Summary ---
Author Organization [employer] Address [address] [facility] 7t [place] [address] Care Team Providers Care Florist Designer Name Role Phone Ondina Tinoco Primary Care Provider [phone] Reason for Referral * Consultation (STAT) - Closed Specialty Diagnoses / Procedures Referred By Florentin morales Referred To Contact Surgical Oncology Diagnoses Malignant melanoma of right lower extremity including hip (CMS/HCC) Ondina Tinoco FNP [address] [place] [address] Phone: tel: fax: Tommie Franz [address] [place] [address] Phone: tel: fax: Referral ID Status Reason Start Date Expiration Date V isits Requested Visits Authorized [id number] Closed Specialty Services Required 12/27/2023 12/26/2024 1 1 Encounter Details Date Type Department Care Team (Late st Contact Info) Description 12/27/2023 Orders Only [facility] 230 [place], [place] [phone] Ondina Tinoco FNP [address] [place], [place] [phone] Malignant melanoma of right lower extremity including [...] on file documented as of this encounter Procedures Procedure Name Priority Date/Time Associated Diagnosis Comments AMB REFERRAL TO SURGICAL ONCOLOGY STAT 01/03/2024 Malignant melanoma of right lower extremity including hip (CMS/HCC) documented in this encounter Results * Referral to Surgical Oncology (01/03/2024) [facility] BASEBALL SEWER HAND OUTPATIENT REFERRAL ORDERABLE S Final Result documented in this encounter Visit Diagnoses Diagnosis Malignant melanoma of right lower extremity including hip (CMS/HCC)- Primary documented in this encounter Additional Health Concerns Assessment Noted Time PHQ-9 Depression Total Score: 0 12/09/19 24 11:12 AM EDT documented as of this encounter Care Teams Florist Designer Relationship Specialty Start Date End Date Ondina Tinoco FNP [address] [place] [address] PCP - General Family Medicine 01/13/21 documented as of this encounter
--- OUTSIDE RECORDS SUMMARY | 2024-05-29 13:53 | XMS_ITS | Encounter Summary ---
Author Organization [employer] Address [address] 7[address] [place] [address] Care Team Providers Care Perforator Name Role Phone [place] [facility] Primary Care Provider [phone] Reason for Visit * Reason Comments Med Refill Encounter Details Date Type Department Care Team ([facility] st Contact Info) Description 04/27/2023 Refill [facility] 230 [place] [address] [facility] 230 [place] [address] Social History Tobacco Use Types Packs/Day Years [...] t he electric, gas, oil or water [employer] threatened to shut off services in your [...] documented as of this encounter Care Teams Perforator Relationship Specialty Start Date End Date Ondina Tinoco FNP [address] [place] [address] PCP - General Family Medicine 01/13/21 documented as of this encounter
--- OUTSIDE RECORDS SUMMARY | 2024-05-29 13:53 | XMS_ITS | Encounter Summary ---
Author Organization [employer] Address [address] [address] [facility] [address] 7t [place] [address] Care Team Providers Care Cribber Name Role Phone [place] Primary Care Provider [phone] Reason for Visit * Reason Comments Med Refill Encounter Details Date Type Department Care Team ([facility] st Contact Info) Description 04/13/[address] [facility] 230 [place], [place] [phone] [facility] 230 [place] [address] Class 2 severe obesity due to excess [...] documented as of this encounter Care Teams Cribber Relationship Specialty Start Date End Date Ondina Tinoco FNP [address] [place] [address] PCP - General Family Medicine 01/13/21 documented as of this encounter
--- OUTSIDE RECORDS SUMMARY | 2024-05-29 13:53 | XMS_ITS | Encounter Summary ---
Author Organization [employer] Address [address] [facility] [address] [place] [address] Care Team Providers Care Maintenance Assistant Name Role Phone Alejandrina [facility] Primary Care Provider [phone] Reason for Visit * Reason Onset Date Comments forms 08/16/2022 Encounter Details Date Type Department Care Team ([facility] st Contact Info) Description 08/16/2022 Telephone [facility] [address] [place] [address] [place] 230 [place] [address] forms Social History Tobacco Use Types Packs/Day [...] Miscellaneous Notes * Telephone Encounter - Marianna Clifton - 08/16/2022 3:51 PM EDT Tc from [...] documented as of this encounter Care Teams Maintenance Assistant Relationship Specialty Start Date End Date Ondina Tinoco FNP [address] [place] [address] PCP - General Family Medicine 01/13/21 documented as of this encounter
--- OUTSIDE RECORDS SUMMARY | 2024-05-29 13:53 | XMS_ITS | Encounter Summary ---
Author Organization [employer] Address [address] [facility] [address] [facility] [address] 7t [place] [address] Care Team Providers Care Payroll Manager Name Role Phone [place] [facility] Primary Care Provider Reason for Visit * Reason Comments Med Refill Encounter Details Date Type Department Care Team ([facility] st Contact Info) Description 03/06/2024 Refill [facility] [address] [place] [address] [facility] 230 [place] [address] Tinea pedis of both feet Social History [...] documented as of this encounter Care Teams Payroll Manager Relationship Specialty Start Date End Date Ondina Tinoco FNP [address] [place] [address] PCP - General Family Medicine 01/13/21 documented as of this encounter
--- OUTSIDE RECORDS SUMMARY | 2024-05-29 13:53 | XMS_ITS | Encounter Summary ---
Author Organization [employer] Address [address] [place] [address] Care Team Providers Care Crm Administrator Name Role Phone Ondina Tinoco DESK MANAGER Primary Care Provider [phone] Encounter Details Date Type Department Care Team (Latest Contact Info) Description 05/25/2024 Travel Social History Tobacco Use Types Packs/Day Years [...] documented as of this encounter Care Teams Crm Administrator Relationship Specialty Start Date End Date Ondina Tinoco FNP [address] [place] [address] PCP - General Family Medicine 01/13/21 documented as of this encounter
--- OUTSIDE RECORDS SUMMARY | 2024-05-29 13:53 | XMS_ITS | Encounter Summary ---
Author Organization [employer] Address [address] [facility] [address] 7[address] [place] [address] Care Team Providers Care Guillotine Operator Name Role Phone Alejandrina [facility] Primary Care Provider [phone] Reason for Visit * Reason Onset Date Comments PT1 01/19/2024 Encounter Details Date Type Department Care Team ([facility] st Contact Info) Description 01/19/2024 Telephone [facility] 230 [place] [address] [place], [facility] 230 [place] [address] PT1 Social History Tobacco Use Types Packs/Day [...] RN - 01/23/2024 11:52 AM EDT Called [facility] per PCP request to confirm pt has follow up appts scheduled. Per Peggy at General Surgery, pt saw Dr Tommie Franz on 01/02 at 9:20am, and has follow up appt tomorrow 01/23 at 11:20am with Dr Franz and another follow up appt is scheduled for 02/09 with an LIVING SUPERVISOR in their office. Will route message to PCP as BASIM. * Telephone Encounter - Mary Beth Rae RN - 01/23/2024 11:52 AM EDT ----- Message from [facility] sent at 01/23/2024 11:24 AM EDT ----- Hi all Please check status of patient's surgical oncology case. He was supposed to have another biopsy with them. I want to make sure he did not fall through any cracks as he is not very reliable. Thank you! * Telephone Encounter - Janet Morris - 01/19/2024 2:21 PM EDT Patient calling requesting PT1 Home Address verified: Y/N: Yes Provider name or facility name: [facility] Facility Address: [address] [place] [address] Escort needed: Y/N: No Do you have [...] documented as of this encounter Care Teams Guillotine Operator Relationship Specialty Start Date End Date Ondina Tinoco FNP [address] [place] [address] PCP - General Family Medicine 01/13/21 documented as of this encounter
--- OUTSIDE RECORDS SUMMARY | 2024-05-29 13:53 | XMS_ITS | Encounter Summary ---
Author Organization [employer] Address [address] [place] [address] Care Team Providers Care Bridge Ironworker Helper Name Role Phone [facility] Primary Care Provider [phone] Reason for Visit * Reason Comments Care Coordination CHW outreach for SDO H PT-1 and food needs-LVM Encounter Details Date Type Department Care Team (Latest Contact Info) Description 05/01/2024 Patient Outreach [facility] MEDICINE [address] [place] [address] [facility] [address] [place] [address] Care Coordination (CHW outreach for SDOH PT-1 [...] Wednesdays, and Walk-In Urgent Care Located in [facility]. Patient provided with after-hours line for [facility], , which offer night time triage service and option to transfer toon call provider if needed. documented in this encounter Plan of Treatment Not on file documented as of this encounter Visit Diagnoses Not on filedocumented in this encounter Additional Health Concerns Assessment Noted Time PHQ-9 Depression Total Score: 0 12/09/19 24 11:12 AM EDT documented as of this encounter Care Teams Bridge Ironworker Helper Relationship Specialty Start Date End Date Ondina Tinoco FNP [address] [place] [id number] PCP - General Family Medicine 01/13/21 documented as of this encounter
--- OUTSIDE RECORDS SUMMARY | 2024-05-29 13:53 | XMS_ITS | Encounter Summary ---
Author Organization [employer] Address [address] [place] [address] Care Team Providers Care Life Skills Specialist Name Role Phone Alejandrina [facility] Primary Care Provider Reason for Visit * Reason Comments Med Refill Encounter Details Date Type Department Care Team ([facility] st Contact Info) Description 05/17/2024 Refill [facility] [address] [place] [address] [facility] [address] [place] [address] Social History Tobacco Use Types Packs/Day Years [...] documented as of this encounter Care Teams Life Skills Specialist Relationship Specialty Start Date End Date Ondina Tinoco FNP [address] [place] [id number] PCP - General Family Medicine 01/13/21 documented as of this encounter
--- OUTSIDE RECORDS SUMMARY | 2024-05-29 13:53 | XMS_ITS | Encounter Summary ---
Author Organization [employer] Address [address] [place] [address] Care Team Providers Care Retail Custodial Associate Name Role Phone Alejandrina [facility] Primary Care Provider [phone] Reason for Visit * Reason Onset Date Comments PT1 04/27/2024 Encounter Details Date Type Department Care Team ([facility] st Contact Info) Description 04/27/2024 Telephone [facility] MEDICINE [address] [place] [address] [place], [facility] [address] [place] [address] PT1 Social History Tobacco Use Types Packs/Day [...] Y/N: Yes Provider name or facility name: [facility] Facility Address: [address] [place] [address] Escort needed: Y/N: No Do you have a wheelchair: Y/N: No If yes- Manual or electric: n/a Visits: 1 x a month Patient calling requesting PT1 Home Address verified: Y/N: Yes Provider name or facility name: [facility] Facility Address: [address] [place] [id number] Escort needed: Y/N: No Do you have [...] documented as of this encounter Care Teams Retail Custodial Associate Relationship Specialty Start Date End Date Ondina Tinoco FNP [address] [place] [address] PCP - General Family Medicine 01/13/21 documented as of this encounter
--- OUTSIDE RECORDS SUMMARY | 2024-05-29 13:53 | XMS_ITS | Encounter Summary ---
Author Organization [employer] Address [address] [place] [address] Care Team Providers Care Electrician Crane Maintenance Name Role Phone [facility] Primary Care Provider [phone] Reason for Visit * Reason Onset Date Comments stable lab letter 05/22/2024 Encounter Details Date Type Department Care Team ([facility] st Contact Info) Description 05/22/2024 Telephone [facility] MEDICINE 230 [place] [address] [facility] 230 [place] [address] stable lab letter Social History Tobacco Use Types Packs/Day Years [...] encounter Miscellaneous Notes * Telephone Encounter - Stefany Bowman - 05/22/2024 10:10 AM EST Mailed stable lab letter. documented in this encounter Plan of Treatment Not on file documented as of this encounter Visit Diagnoses Not on filedocumented in this encounter Additional Health Concerns Assessment Noted Time PHQ-9 Depression Total Score: 0 12/09/19 24 11:12 AM EDT documented as of this encounter Care Teams Electrician Crane Maintenance Relationship Specialty Start Date End Date Ondina Tinoco FNP [address] [place] [phone] PCP - General Family Medicine 01/13/21 documented as of this encounter
== END 2024-05-29 12:50 | disposition home or self-care (01) ==
LOC: HO.HHCL 12:49
PROVIDERS: Visit Provider Internal Medicine Hematology
DX: Z13.89 Encounter for screening for other disorder (principal)

== ENCOUNTER 2024-07-05 10:23 | Outpatient (AMB) | payer MEDICARE, MEDICAID, SELFPAY ==
[2024-07-05 11:26] VITALS: BP 118/60; PULSE 70; O2SAT 97; BMI 39.0
--- NOTE | 2024-07-05 11:26 | MHC.OFFVIS ---
Vital Signs 07/05/24 11:26 Height 5 ft 7 in Weight 249 lb 1.957 oz BMI 39.0 BP 118/60 Blood Pressure Location Lt brachial Position Sitting Pulse 70 Pulse Source Pulse Oximeter Pulse Oximetry (%) 97 Oxygen Delivery Method Room Air Intake Visit Reasons: COPD Intake Note: pt is here for follow up of FARIBA he was dx with a melanoma on foot and will be starting treatment at [facility] [employer] Required: No Allergies No Known Allergies [No Known Allergies*] Allergy (Verified 07/05/24 11:33) Medication List - Last Reconciled 07/05/24 by Sabra Cabello MD albuterol sulfate 90 mcg/actuation (Ventolin HFA) 2 puffs inhalation Q4-6H PRN albuterol sulfate mg inhalation Q6H PRN atorvastatin 10 mg PO DAILY cholecalciferol (vitamin D3) 50 mcg PO DAILY cyanocobalamin (vitamin B-12) 1,000 mcg PO DAILY furosemide 20 - 40 mg PO DAILY PRN ibuprofen 600 mg PO BID PRN topiramate 50 mg PO BID Do you need a note to return to daycare/school/sports/work: No HPI HPI COPD: Details: 63 YEARS OLD VERY PLEASANT GENTLEMAN IS HERE FOR FOLLOW-UP AFTER 4 MONTHS FOR HIS SLEEP APNEA. HE USES CPAP VERY REGULARLY EVERY NIGHT SINCE SLEEPS WELL. HE HAS NO ISSUE WITH THE CPAP MASK OR CPAP MACHINE. HE STILL HAS SOME FATIGUE AND SHORTNESS OF BREATH DURING THE DAYTIME. 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 HE HAS HAD PARTIAL EXCISION OF THE MELANOTIC LESIONS, AND NOW AWAITING TO BE STARTED ON CHEMOTHERAPY. HE DOES GET SHORT OF BREATH AND EVERY NOW AND THEN USES ALBUTEROL INHALER OR ALBUTEROL SULFATE SOLUTION IN THE NEBULIZER, BUT THAT IS QUITE INFREQUENT. [facility] Medical History Bronchial asthma FARIBA (obstructive sleep apnea) Obesity (BMI 35.0-39.9 without comorbidity) Social History Patient Tobacco Use Status: Never used Tobacco Review of Systems Const All systems reviewed & are unremarkable except as noted in HPI and below Eyes Reports no additional complaints ENT Reports no additional complaints Card Denies chest pain, Denies irregular heart rhythm and Denies leg edema Resp Reports as per HPI GI Reports no additional complaints Reports no additional complaints Musc Reports myalgias and Reports arthralgias Skin/Breast Reports system reviewed and no additional complaints, except as documented Neuro Reports no additional complaints Psych Reports no additional complaints Endo Reports no additional complaints Physical Exam Vital Signs: Last Vital Signs Pulse 70 07/05/24 11:26 BP 118/60 07/05/24 11:26 Pulse Ox 97 07/05/24 11:26 Oxygen Delivery Method Room Air 07/05/24 11:26 BMI result Body Mass Index 39.0 Const Other: Has a round face. Short and obese neck, Mallampati class 4. General: comfortable, no acute distress, alert and awake Orientation/consciousness: patient oriented x3 HEENT Head: Yes normal to inspection General nose exam: No nasal polyps present and No nasal discharge present Face and sinus: Yes sinuses nontender Mouth: oropharynx abnormals (Oropharynx is narrow and crowded, Mallampati class 3) Throat: Yes posterior oropharynx normal Eyes General: appearance normal, both eyes and all related structures Neck Neck: Yes normal visual inspection, Yes no lymphadenopathy, Yes trachea midline, Yes no JVD and Yes other (Neck circumference 19 in) Thyroid: Thyroid normal Chest Chest palpation & inspection: normal inspection of the chest, normal palpation of entire chest wall and no tenderness Resp Effort & Inspection: normal respiratory effort Auscultation: clear to auscultation bilaterally, no crackles and no wheezes Cardio Palpation: normal PMI Rate: regular rate Rhythm: regular rhythm Heart sounds: no gallops and no murmurs Peripheral pulses: Peripheral pulses 2+ throughout GI Inspection: Yes other (Abdomen is obese and protuberant) Palpation (GI): Soft to palpation, nontender, No hepatosplenomegaly present and no masses Auscultation: normal bowel sounds Back/Spine/Pelvis Thoracic/Lumbar Spine: thoracic and lumbar spine normal to inspection Skin General skin exam: no rashes or lesions noted Neuro General: patient oriented x3 and no focal motor deficits Cranial nerves: Yes CN's II-XII intact bilaterally Extrem General: Yes normal to inspection, Yes no clubbing, cyanosis or edema and Yes no calf tenderness Psych Appearance: grossly normal and well kempt Speech and movement: Normal speech and movement present Results Reviewed Results Reviewed: COMPLIANCE REPORT IS REVIEWED. HE HAS USED 30/30 NIGHTS,. 100% AVERAGE USE IT PER NIGHT 8 HOURS 24 MINUTES. AVERAGE PRESSURE USE 7-10 CM. THERE IS NO RESIDUAL APNEA Assessment & Plan Assessment & Plan (1) Obesity (BMI 35.0-39.9 without comorbidity): Comment: Patient is GROSSLY obese .BMI=39.0 HE IS AWARE OF THIS ISSUE, LATELY HAS NOT BEEN ABLE TO DO MUCH WALKING DUE TO MELANOMA OF THE RIGHT FOOT. Code(s): E66.9 - Obesity, unspecified Category: Medical Plan: ENCOURAGED TO WATCH HIS DIET, . AND CUT DOWN CALORIES INTAKE (2) FARIBA (obstructive sleep apnea): Comment: He has moderately severe obstructive sleep apnea. COMPLIANCE IS EXCELLENT. HAS BEEN USING CPAP VERY REGULARLY AND BENEFITING FROM IT. HIS SLEEP QUALITY HAS BEEN FAIRLY GOOD. Code(s): G47.33 - Obstructive sleep apnea (adult) (pediatric) Category: Medical Plan: COMMENDED FOR GOOD COMPLIANCE AND ADVISED TO CONTINUE USING THE CPAP REGULARLY (3) Bronchial asthma: Comment: He has mild reactive airways/bronchial asthma, stable Code(s): J45.909 - Unspecified asthma, uncomplicated Category: Medical Plan: USE ALBUTEROL HFA 2 PUFFS Q 4-6 HOURS ONLY P.R.N.. OR MAY USE ALBUTEROL SOLUTION IN THE NEBULIZER Q 4-6 HOURS P.R.N.. Coding Level of Care Code Est Pt Level 3 (92333) Diagnoses Obesity (BMI 35.0-39.9 without comorbidity) E66.9 FARIBA (obstructive sleep apnea) G47.33 Bronchial asthma J45.909
--- OUTSIDE RECORDS SUMMARY | 2024-07-05 11:51 | XMS_ITS | Encounter Summary ---
Author Organization [employer] Address [address] [facility] [address]t [place] [address] Care Team Providers Care Buyer Name Role Phone Ondina Tinoco Primary Care Provider [phone] Reason for Referral * Consultation (STAT) - Closed Specialty Diagnoses / Procedures Referred By Florentin morales Referred To Contact Surgical Oncology Diagnoses Malignant melanoma of right lower extremity including hip (CMS/HCC) Ondina Tinoco FNP [address] [place] [address] Phone: tel: fax: Tommie Franz [address] [place] [address] Phone: tel: fax: Referral ID Status Reason Start Date Expiration Date V isits Requested Visits Authorized [id number] Closed Specialty Services Required 12/27/2023 12/26/2024 1 1 Encounter Details Date Type Department Care Team (Late st Contact Info) Description 12/27/2023 Orders Only [facility] [address] [place], [place] [phone] Ondina Tinoco FNP [address] [place], [place] [phone] Malignant melanoma of right lower extremity including [...] Results * Referral to Surgical Oncology (01/03/2024) [facility] CHECK CLERK OUTPATIENT REFERRAL ORDERABLE S Final Result documented in this encounter Visit Diagnoses Diagnosis Malignant melanoma of right lower extremity including hip (CMS/HCC)- Primary documented in this encounter Additional Health Concerns Assessment Noted Time PHQ-9 Depression Total Score: 0 12/09/19 24 11:12 AM EDT documented as of this encounter Care Teams Buyer Relationship Specialty Start Date End Date Ondina Tinoco FNP [address] [place] [id number] PCP - General Family Medicine 01/13/21 documented as of this encounter
--- OUTSIDE RECORDS SUMMARY | 2024-07-05 11:51 | XMS_ITS | Encounter Summary ---
Author Organization [employer] Address [address] [facility] 7t [place] [address] Care Team Providers Care Surveillance Investigator Name Role Phone Ondina Tinoco FOOD DEHYDRATOR OPERATOR Primary Care Provider [phone] Encounter Details Date Type Department Care Team ([facility] st Contact Info) Description 03/10/2022 Abstract [facility] MEDICINE [address] [place] [address] Provider, MD Yenny Social History Tobacco Use [...] on filedocumented in this encounter Care Teams Surveillance Investigator Relationship Specialty Start Date End Date Ondina Tinoco FNP [address] [place] [address] PCP - General Family Medicine 01/13/21 documented as of this encounter
--- OUTSIDE RECORDS SUMMARY | 2024-07-05 11:52 | XMS_ITS | Encounter Summary ---
Author Organization [employer] Address [address] [facility] 7t [place] [address] Care Team Providers Care Outboard System Operator Name Role Phone [facility] Primary Care Provider [phone] Reason for Visit * Reason Comments SDOH Concerns C3CM/JESSICA Rock PT1 Encounter Details Date Type Department Care Team ([facility] st Contact Info) Description 07/02/2024 Patient Outreach [facility] MEDICINE 230 [place], [place] [phone] [facility] 230 [place] [address] SDOH Concerns (JESSICA Ryan PT1) Social History Tobacco Use Types Packs/Day Years [...] as of this encounter Progress Notes * Vanda Mcgregor - 07/02/2024 2:04 PM EDT CHW Vanda Mcgregor, placed outbound call per patient regarding PT1 request. CHW notified patient ofPT1 for [facility] was submitted today. Patient verbalized understanding. documented in this encounter Plan of Treatment Not on file documented as of this encounter Visit Diagnoses Not on filedocumented in this encounter Additional Health Concerns Assessment Noted Time PHQ-9 Depression Total Score: 0 05/25/19 25 11:13 AM EST documented as of this encounter Care Teams Outboard System Operator Relationship Specialty Start Date End Date Ondina Tinoco FNP [address] [place] [id number] PCP - General Family Medicine 01/13/21 documented as of this encounter
--- OUTSIDE RECORDS SUMMARY | 2024-07-05 11:52 | XMS_ITS | Clinical Summary ---
Author Organization [employer] Address [address] [facility] 7t [place] [address] Care Team Providers Care House Visitor Name Role Phone Ondina Tinoco ADMISSIONS GATE ATTENDANT Primary Care Provider [phone] Allergies No known active allergies Medications Diclofenac Sodium 1 % gel Apply 2 g topically every 6 (six) hours. 04/01/20 21 Active albuterol (2.5 MG/3ML) 0.083% nebulizer solution Inhale 1 vial using nebulizer every six hours as needed 08/28/19 22 Active capsicum (Zostrix) 0.075 % topical cream Apply topically every 8 (eight) hours. 04/01/20 21 Active Lidocaine 4 % patch apply 1 patch to affected area 1-2 times daily 04/01/20 21 Active terbinafine (LamISIL AT) 1 % creamIndications:T inea pedis of both feet Apply topically 2 times daily. 30 g 2 09/02/19 23 Active Ventolin HFA 108 (90 Base) MCG/ACT inhalerIndications :Mild intermittent asthma without complication INHALE 2 PUFFS BY MOUTH EVERY 4 HOURS 18 g 11 09/14/19 24 Active atorvastatin (Lipitor) 10 MG tabletIndications: Mixed hyperlipidemia TAKE 1 TABLET BY MOUTH DAILY IN THE MORNING 30 tablet 11 09/16/19 24 Active furosemide (Lasix) 20 MG tabletIndications: Edema, unspecified type TAKE 1 TO 2 TABLETS BY MOUTH DAILY NEEDED FOR EDEMA 90 tablet 3 09/19/19 24 Active cyanocobalamin (Vitamin B-12) 1000 MCG tablet TAKE 1 TABLET BY MOUTH EVERY DAY IN THE MORNING 90 tablet 3 09/19/19 24 Active psyllium (Reguloid) 57.6 % powderIndications: Class 2 severe obesity due to excess calories with serious comorbidity and body mass index (BMI) of 38.0 to 38.9 in adult ([facility]) MIX 2-3 TEASPOONFUL OF POWDER IN 8 OUNCES OF WATER THREE TIMES DAILY BEFORE A MEAL 284 g 11 09/19/19 24 Active topiramate (Topamax) 50 MG tabletIndications: Class 2 severe obesity due to excess calories with serious comorbidity and body mass index (BMI) of 38.0 to 38.9 in adult ([facility]) TAKE 2 TABLETS BY MOUTH EVERY DAY BEFORE SUPPER 60 tablet 04/13/20 24 Active D3 Super Strength 50 MCG (1999 UT) capsule TAKE 1 CAPSULE BY MOUTH EVERY DAY 90 capsule 05/18/19 25 Active ibuprofen 600 MG tabletIndications: Chronic bilateral low back pain without sciatica TAKE 1 Tablet BY MOUTH TWICE DAILY WITH FOOD NEEDED FOR FOR BACKACHE 60 tablet 05/25/19 25 Active Tirzepatide-Weight Management (Zepbound) 2.5 MG/0.5ML solution auto-injectorIndic ations:Class 3 severe obesity due to excess calories with serious comorbidity and body mass index (BMI) of 40.0 to 44.9 in adult ([facility]),Metaboli c syndrome Inject 0.5 mL (2.5 mg) under the skin 1 (one) time per week. 2 mL 2 06/03/19 25 026 Active Active Problems Problem Noted Date Diagnosed Date Metastatic melanoma 06/03/2024 Metabolic syndrome 06/03/2024 Mild intermittent asthma 05/10/2022 Overview (05/10/2022): ?? PFT's from 05/2021, results concerning for possible interstitial lung disease with recommendation for pulmonary referral. ?? Seen by [facility] pulmon[facility] 12/2021 - per visit note mild [...] Neg 2017 Vision Exam: Previously referred to [facility] vision care Dental Care: [facility] Edema 05/04/2022 Overview (05/10/2022): ?? [...] degenerative changes. Followed by pain management in [place] and reports moderate relief with steroid injections. [...] Encounters Date Type Department Care Team Description 07/02/2024 Patient Outreach [address] [address] [place] [facility] SDOH Concerns (C3CM/CHW JESSICA Peterson PT1) 07/02/[address] [address] Ondina Tinoco FNP PT1 06/13/2024 Patient Outreach [address] [address] [place] FNP Care Coordination (CHW outreach for SDOH PT-1 and food needs-referral completed /) 06/13/[address] [address] [place]ndina saravia FNP PT-1 (/) 05/25/2024 11:15 AM EST Office Visit [address] [address] Ondina Tinoco [facility] Metastatic melanoma (CMS/HCC) (Primary Dx); Lower extremity edema; Class 3 severe obesity due to excess calories with serious comorbidity and body mass index (BMI) of 40.0 to 44.9 in adult (CMS/HCC); Metabolic syndrome; Chronic bilateral low back pain without sciatica; Encounter for immunization; Dietary counseling; Exercise counseling 05/25/2024 Travel 05/22/[address] [address] [facility] stable lab letter 05/17/2024 Refill [facility] [address] [place] [address] [facility] 05/04/2024 Telephone [facility] [address] [place] [address] [facility] Pt1 05/01/2024 Patient Outreach [facility] [address] [place] [address] [facility] Care Coordination (CHW outreach for SDOH PT-1 and food needs-LVM ) 05/01/2024 Telephone [facility] [address] [place] [address] [facility] PT1 04/27/2024 Patient Outreach [facility] [address] [place] [address] [facility] Care Coordination (CHW outreach for SDOH PT-1 and food needs-referral completed /) 04/27/2024 Telephone [facility] [address] [place] [address] [facility] PT1 04/13/2024 Refill [facility] [address] [place], [place] [phone] [facility] Chronic bilateral low back pain without sciatica; Class 2 severe obesity due to excess calories with serious comorbidity and body mass index (BMI) of 38.0 to 38.9 in adult ([facility]) 04/13/2024 Refill [facility] [address] [place] [address] [facility] Class 2 severe obesity due to excess calories with serious comorbidity and body mass index (BMI) of 38.0 to 38.9 in adult ([facility]); Mild intermittent asthma without complication; Chronic bilateral low back pain without sciatica from Last 3 Months Immunizations Name Administration Dates Next Due Hep A, Adult 10/07/2017,12/09/2011 Hep B, Adolescent or Pediatric 12/22/2007,2007,06/19/2007 Influenza injectable quadriv alent IIV4 with preservative 01/19/2018,03/19/2015 Influenza injectable quadriv alent preservative free 03/31/2023,06/25/2021,05/21/2016 Influenza, IIV3, injectable 02/02/2011 Influenza, seasonal, injecta ble, preservative free 05/25/2024,05/04/2022 MMR 10/07/2017,12/09/2011 Moderna Covid-19 Vaccine 12+ 06/25/2021,07/11/19,06/12/2020 Moderna Covid-19 Vaccine 6+ Bivalent 05/04/2022 Pfizer [...] 25 SDOH Screening 05/25/2025 05/25/2024 Tobacco Screening 06/03/2025 06/03/2024 Colorectal Cancer Screening 09/14/2025 FIT DNA/Cologuard 09/14/2025 [...] Results * PSA,Total (05/21/2024 12:00 PM EST) Pathologist [facility] Prostate Specific Antigen 3.66 <0.05 - 4.0 ng/mL [facility] Comment:PSA methodology: Imani Armendariz i ChemiluminescentMicroparticle Immunoassay (CMIA) Blood Venous blood specimen / Unknown 05/21/2024 12:00 PM EST 05/21/2024 1:19 PM EST [facility] LAB BLOOD ORDERABLES Final Re sult [facility] [address] [place] [phone] * Cologuard Colon Cancer Screening (09/22/2022 1:58 PM EDT) [facility] Cologuard Cancer Screen Negative Stool 09/22/2022 1:58 PM EDT [facility] POINT OF CARE TEST ENTER/EDIT ORDERABLES Final Result * (ABNORMAL) Lipid Panel, Standard (05/24/2022 1:28 PM EST) [facility] Cholesterol, Total 171 <200 mg/dL [facility] HDL Cholesterol 46 > OR = 40 mg/dL [facility] Tr[facility]lycerides 73 <150 mg/dL [facility] LDL Cholesterol 109(H) mg/dL (calc) [facility] Comment: Reference range: <100 Desirable range <100 mg/dL for primary prevention; ?? <70 mg/dL for patients with CHD or diabetic patients with > or = 2 CHD risk factors. LDL-C is now calculated using the Melissa calculation, which is a validated novel method providing better accuracy than the Friedewald equation in the estimation of LDL-C. Daniel DAVE et al. QUEENIE. 2013;310(19): 2174-5605 (http://education.IntroMaps.[employer]/faq/RIA892) Chol/HDLC Ratio 3.7 <5.0 (calc) [facility] Non-HDL Cholesterol 125 <130 mg/dL (calc) [facility] Comment: For patients with diabetes plus 1 major ASCVD risk factor, treating to a non-HDL-C goal of <100 mg/dL (LDL-C of <70 mg/dL) is considered a therapeutic option. Blood Venous blood specimen / Unknown 05/24/2022 1:28 PM EST 05/24/2022 1:28 PM EST Narrative [facility] - 05/25/2022 6:26 AM EST FASTING:YES FASTING: YES [facility] ADMISSIONS GATE ATTENDANT LAB BLOOD ORDERABLES Final Re sult [facility] [address] [facility], [place] [address] [facility] [address] [facility], (N[address]) [place] [address] * HEPATITIS C AB W/REFL TO HCV RNA, QN, PCR (09/11/2020 8:34 AM EDT) HEPATITIS C ANTIBODY NON-REACT BARBARA NON-REACT BARBARA [facility] INDEX 0.01 <1.00 [facility] Comment: ?? HCV antibody was non-reactive. There is no laboratory ?? evidence of HCV infection. ?? In most cases, no further action is required. However, if recent HCV exposure is suspected, a test for HCV RNA (test code 50740) is suggested. ?? For additional information please refer to http://education.RelinkL[employer]/faq/PXP89e5 (This link is being provided for informational/ educational purposes only.) ?? 09/11/2020 8:34 AM EDT Historical Provider MD HISTORICAL/NON ORDERABLE LABS Final Result Performing Organization Address City/[facility]/ZIP Co de Phone Number [facility] [address] from Last 3 Months or Most Recently Relevant to Health Maintenance Insurance [place] [id number] [facility] Care Teams House Visitor Relationship Specialty Start Date End Date Ondina Tinoco FNP [address] [place] [phone] PCP - General Family Medicine 01/13/21
--- OUTSIDE RECORDS SUMMARY | 2024-07-05 11:52 | XMS_ITS | Encounter Summary ---
Author Organization [employer] Address [address] [facility] [address] 7t [place] [address] Care Team Providers Care Shoe Lining Fitter Name Role Phone Alejandrina [facility] Primary Care Provider [phone] Reason for Visit * Reason Onset Date Comments PT-1 06/13/2024 Encounter Details Date Type Department Care Team ([facility] st Contact Info) Description 06/13/2024 Telephone [facility] 230 [place], [place] [phone] [place], [facility] 230 [place] [address] PT-1 (/) Social History Tobacco Use Types Packs/Day Years [...] encounter Miscellaneous Notes * Telephone Encounter - Bradley Garza - 06/13/2024 1:16 PM EST Tc from pt requesting to Change Amount of Visits for Pt 1 for [address] [place] [address] to (4 x Monthly) Visits. Contact pt at [phone] documented in this encounter Plan of Treatment Not on file documented as of this encounter Visit Diagnoses Not on filedocumented in this encounter Additional Health Concerns Assessment Noted Time PHQ-9 Depression Total Score: 0 05/25/19 25 11:13 AM EST documented as of this encounter Care Teams Shoe Lining Fitter Relationship Specialty Start Date End Date Ondina Tinoco FNP [address] [place] [address] PCP - General Family Medicine 01/13/21 documented as of this encounter
--- OUTSIDE RECORDS SUMMARY | 2024-07-05 11:52 | XMS_ITS | Encounter Summary ---
Author Organization [employer] Address [address] [facility] [address] 7t [place] [address] Care Team Providers Care Molder Trimmer Name Role Phone [place] [facility] Primary Care Provider [phone] Reason for Visit * Reason Comments Med Refill Encounter Details Date Type Department Care Team ([facility] st Contact Info) Description 03/06/2024 Refill [facility] [address] [place], [place] [phone] [facility] [address] [place] [address] Tinea pedis of both feet Social History [...] documented as of this encounter Care Teams Molder Trimmer Relationship Specialty Start Date End Date Ondina Tinoco FNP [address] [place] [address] PCP - General Family Medicine 01/13/21 documented as of this encounter
--- OUTSIDE RECORDS SUMMARY | 2024-07-05 11:52 | XMS_ITS | Encounter Summary ---
Author Organization [employer] Address [address] [facility] [address] 7t [place] [address] Care Team Providers Care Counseling Department Chair Name Role Phone Alejandrina [facility] Primary Care Provider [phone] Reason for Visit * Reason Onset Date Comments PT1 07/02/2024 Encounter Details Date Type Department Care Team ([facility] st Contact Info) Description 07/02/2024 Telephone [facility] 230 [place], [place] [phone] [place], [facility] [address] [place] [address] PT1 Social History Tobacco Use Types Packs/Day [...] * Telephone Encounter - Calista Terry - 07/02/2024 1:44 PM EDT Patient calling requesting PT1 Home Address verified: Y/N: Yes Provider name or facility name: [address] [place] [address] Escort needed: Y/N: No Do you have a wheelchair: Y/N: No If yes- Manual or electric: N/A Visits: (2x monthly ) documented in this encounter Plan of Treatment Not on file documented as of this encounter Visit Diagnoses Not on filedocumented in this encounter Additional Health Concerns Assessment Noted Time PHQ-9 Depression Total Score: 0 05/25/19 25 11:13 AM EST documented as of this encounter Care Teams Counseling Department Chair Relationship Specialty Start Date End Date Ondina Tinoco FNP [address] [place] [address] PCP - General Family Medicine 01/13/21 documented as of this encounter
--- OUTSIDE RECORDS SUMMARY | 2024-07-05 11:52 | XMS_ITS | Encounter Summary ---
Author Organization [employer] Address [address] [facility] [address] 7t [place] [address] Care Team Providers Care Retail Marketing Executive Name Role Phone Alejandrina [facility] Primary Care Provider [phone] Reason for Visit * Reason Onset Date Comments PT1 04/27/2024 Encounter Details Date Type Department Care Team ([facility] st Contact Info) Description 04/27/[address] [facility] 230 [place] [address] [place], [facility] 230 [place] [address] PT1 Social History Tobacco Use Types Packs/Day [...] Y/N: Yes Provider name or facility name: [facility] Facility Address: [address] [place] [address] Escort needed: Y/N: No Do you have a wheelchair: Y/N: No If yes- Manual or electric: n/a Visits: 1 x a month Patient calling requesting PT1 Home Address verified: Y/N: Yes Provider name or facility name: [facility] Facility Address: [address] [place] [address] Escort needed: Y/N: No Do you have [...] as of this encounter Care Teams Retail Marketing Executive Relationship Specialty Start Date End Date Ondina Tinoco FNP [address] [place] [address] PCP - General Family Medicine 01/13/21 documented as of this encounter
--- OUTSIDE RECORDS SUMMARY | 2024-07-05 11:52 | XMS_ITS | Encounter Summary ---
Author Organization [employer] Address [address] [facility] [address] 7t [place] [address] Care Team Providers Care Agricultural Scientist Name Role Phone Alejandrina [facility] Primary Care Provider [phone] Reason for Visit * Reason Onset Date Comments PT-1 04/04/2024 Encounter Details Date Type Department Care Team ([facility] Contact Info) Description 04/04/2024 Telephone [facility] 230 [place], [place] [phone] [place], [facility] 230 [place] [address] PT-1 Social History Tobacco Use Types Packs/Day [...] Y/N: Yes Provider name or facility name: [facility] Escort needed: Y/N: No Do you have a wheelchair: Y/N: No If yes- Manual or electric: Visits: (3) (xmonthly) 2. Patient calling requesting PT1 Home Address verified: Y/N: Yes Provider name or facility name: [address] [place] [address] Escort needed: Y/N: No Do you have [...] documented as of this encounter Care Teams Agricultural Scientist Relationship Specialty Start Date End Date Ondina Tinoco FNP 230 [place] [address] PCP - General Family Medicine 01/13/21 documented as of this encounter
--- OUTSIDE RECORDS SUMMARY | 2024-07-05 11:52 | XMS_ITS | Encounter Summary ---
Author Organization [employer] Address [address] [facility] [address]t [place] [address] Care Team Providers Care City Detective Name Role Phone [place] [facility] Primary Care Provider [phone] Reason for Visit * Reason Comments Med Refill Encounter Details Date Type Department Care Team ([facility] st Contact Info) Description 04/13/2024 Refill [facility] 230 [place], [place] [phone] [facility] 230 [place] [address] Class 2 severe obesity due to excess [...] documented as of this encounter Care Teams City Detective Relationship Specialty Start Date End Date Ondina Tinoco FNP [address] [place] [address] PCP - General Family Medicine 01/13/21 documented as of this encounter
--- OUTSIDE RECORDS SUMMARY | 2024-07-05 11:52 | XMS_ITS | Encounter Summary ---
Author Organization [employer] Address [address] 7t [place] [address] Care Team Providers Care Brand Activation Manager Name Role Phone Ondina Tinoco [facility] Primary Care Provider [phone] Reason for Visit * Reason Onset Date Comments PT1 03/12/2024 Encounter Details Date Type Department Care Team ([facility] st Contact Info) Description 03/12/2024 Telephone [facility] 230 [place] [address] [place], [facility] 230 [place] [address] PT1 Social History Tobacco Use Types Packs/Day [...] any questions you can contact pt at [phone]. (Egyptian Speaker) * Telephone Encounter - Sammie Bajwa - 03/12/2024 3:23 PM EST Patient calling requesting PT1 Home Address verified: Y/N: Yes Provider name or facility name: [facility] Facility Address: [address] [place] [address] Escort needed: Y/N: No Do you have [...] documented as of this encounter Care Teams Brand Activation Manager Relationship Specialty Start Date End Date Ondina Tinoco FNP [address] [place] [address], [place] [address] PCP - General Family Medicine 01/13/21 documented as of this encounter
--- OUTSIDE RECORDS SUMMARY | 2024-07-05 11:52 | XMS_ITS | Encounter Summary ---
Author Organization [employer] Address [address] [facility] [address] 7t [place] [address] Care Team Providers Care Day Care Attendant Name Role Phone [place] [facility] Primary Care Provider Reason for Visit * Reason Comments Med Refill Encounter Details Date Type Department Care Team ([facility] st Contact Info) Description 04/27/2023 Refill [facility] 230 [place], [place] [phone] [facility] 230 [place], [place] [phone] Social History Tobacco Use Types Packs/Day Years [...] documented as of this encounter Care Teams Day Care Attendant Relationship Specialty Start Date End Date Ondina Tinoco FNP [address] [place] [address] PCP - General Family Medicine 01/13/21 documented as of this encounter
--- OUTSIDE RECORDS SUMMARY | 2024-07-05 11:52 | XMS_ITS | Encounter Summary ---
Author Organization [employer] Address [address] [facility] [address]t [place] [address] Care Team Providers Care Stonework Supervisor Name Role Phone Alejandrina [facility] Primary Care Provider [phone] Reason for Visit * Reason Onset Date Comments PT1 05/01/2024 Encounter Details Date Type Department Care Team ([facility] st Contact Info) Description 05/01/2024 Telephone [facility] 230 [place] [address] [place], [facility] 230 [place] [address] PT1 Social History Tobacco Use Types Packs/Day [...] Y/N: Yes Provider name or facility name: [facility]. [address] [place] [address] Escort needed: Y/N: No Do you have [...] documented as of this encounter Care Teams Stonework Supervisor Relationship Specialty Start Date End Date Ondina Tinoco FNP [address] [place] [address] PCP - General Family Medicine 01/13/21 documented as of this encounter
--- OUTSIDE RECORDS SUMMARY | 2024-07-05 11:52 | XMS_ITS | Encounter Summary ---
Author Organization [employer] Address [address] [facility] [address] 7t [place] [address] Care Team Providers Care Mining Support Worker Name Role Phone Alejandrina [facility] Primary Care Provider [phone] Reason for Visit * Reason Onset Date Comments PT1 01/19/2024 Encounter Details Date Type Department Care Team ([facility] st Contact Info) Description 01/19/2024 Telephone [facility] 230 [place] [address] [place], [facility] 230 [place] [address] PT1 Social History Tobacco Use Types Packs/Day [...] Notes * Telephone Encounter - Mary Beth Lowry RN - 01/23/2024 11:52 AM EDT Called [facility] General Surgery per PCP request to confirm pt has follow up appts scheduled. Per Peggy at General Surgery, pt saw Dr Tommie Franz on 01/02 at 9:20am, and has follow up appt tomorrow 01/23 at 11:20am with Dr Franz and another follow up appt is scheduled for 02/09 with an BEHAVIORAL HEALTH RN in their office. Will route message to PCP as FYI. * Telephone Encounter - Mary Beth Lowry RN - 01/23/2024 11:52 AM EDT ----- Message from [facility] sent at 01/23/2024 11:24 AM EDT [...] name: [employer] [employer] Facility Address: [address] [place] [address] Escort needed: Y/N: No Do you have [...] documented as of this encounter Care Teams Mining Support Worker Relationship Specialty Start Date End Date Ondina Tinoco FNP [address] [place] [address] PCP - General Family Medicine 01/13/21 documented as of this encounter
--- OUTSIDE RECORDS SUMMARY | 2024-07-05 11:52 | XMS_ITS | Encounter Summary ---
Author Organization [employer] Address 75 [facility] 7t [place] [address] Care Team Providers Care Information Analyst Name Role Phone [place] [facility] Primary Care Provider [phone] Reason for Visit * Reason Comments Care Coordination CHW outreach for SDO H PT-1 and food needs-referral completed Encounter Details Date Type Department Care Team (Latest Contact Info) Description 06/13/2024 Patient Outreach [facility] 230 [place] [address] [facility] 230 [place] [address] Care Coordination (CHW outreach for SDOH PT-1 [...] encounter Progress Notes * Milton Lorenz - 06/13/2024 1:44 PM EST CHW Milton Lorenz, placed outbound call to patient for assistance with SDOH as a referral was received by the provider. Patient's name and were confirmed. Patient screened positive for the following SDOH food insecurities. Patient states family in on SNAP program at this time. CHW referral patient to the local list of pantries in the area for help. PT-1 requested was send out in behalf of patient for [facility] appt. Patient verbalizes understanding, and able to agree with plan to follow up.Patient educated on extended clinic hours on Mondays through Wednesdays, and Walk-In Urgent Care Located in [facility]. Patient provided with after-hours line for [facility], , which offer night time triage service and option to transfer to pedodontist provider if needed. documented in this encounter Plan of Treatment Not on file documented as of this encounter Visit Diagnoses Not on filedocumented in this encounter Additional Health Concerns Assessment Noted Time PHQ-9 Depression Total Score: 0 05/25/19 25 11:13 AM EST documented as of this encounter Care Teams Information Analyst Relationship Specialty Start Date End Date [facility], LISA [address] [place] [address] PCP - General Family Medicine 01/13/21 documented as of this encounter
== END 2024-07-05 11:40 | disposition home or self-care (01) ==
LOC: HO.HPS 10:24
PROVIDERS: PCP Registered Nurse; Visit Provider Internal Medicine
DX: E66.9 Obesity, unspecified (principal); G47.33 Obstructive sleep apnea (adult) (pediatric); J45.909 Unspecified asthma, uncomplicated
CPT/HCPCS: 99213

== ENCOUNTER → 2024-07-05 10:23 | Outpatient (BNVA) | payer MEDICAID, SELFPAY | PROVIDERS: PCP Registered Nurse; Visit Provider Internal Medicine | DX: J45.909 Unspecified asthma, uncomplicated (principal); G47.33 Obstructive sleep apnea (adult) (pediatric); Z68.39 Body mass index [BMI] 39.0-39.9, adult; Z99.89 Dependence on other enabling machines and devices | CPT/HCPCS: 99212 ==

== ENCOUNTER 2024-10-29 11:07 | Outpatient (AMB) | payer MEDICAID, SELFPAY ==
[2024-10-29 11:09] VITALS: BP 118/60; PULSE 75; RESP 18; O2SAT 97; BMI 38.7
--- NOTE | 2024-10-29 11:09 | A.OFFVIS_ITS ---
Vital Signs 10/29/24 11:09 Height 5 ft 7 in Weight 246 lb 14.684 oz BMI 38.7 BP 118/60 Blood Pressure Location Lt brachial Position Sitting Respiration 18 Pulse 75 Pulse Source Pulse Oximeter Pulse Oximetry (%) 97 Oxygen Delivery Method Room Air Intake Visit Reasons: COPD Informatics Specialist Required: No Accompanied by: Self / Same As Patient Allergies No Known Allergies (No Known Allergies*) Allergy (Verified 10/29/24 11:21) Medication List - Last Reconciled 10/29/24 by Sabra Cabello MD albuterol sulfate 90 mcg/actuation (Ventolin HFA) 2 puffs inhalation Q4-6H PRN albuterol sulfate mg inhalation Q6H PRN atorvastatin 10 mg PO DAILY cholecalciferol (vitamin D3) 50 mcg PO DAILY cyanocobalamin (vitamin B-12) 1,000 mcg PO DAILY furosemide 20 - 40 mg PO DAILY PRN ibuprofen 600 mg PO BID PRN topiramate 50 mg PO BID Do you need a note to return to daycare/school/sports/work: No HPI HPI COPD: Details: This 64 years old very pleasant gentleman who has gross obesity and obstructive sleep apnea, is here today for her 4 months follow-up. He remains grossly obese, not able to lose weight, but he is telling me that he loves to eat sweets. He has mild bronchial asthma , which is controlled by use of Ventolin 2 puffs just about once a day. He has not needed to use albuterol solution in the nebulizer. For sleep apnea he uses CPAP very regularly every night for at least 5-6 hours per night. The only issue is that there is collection of water in the hose, which sometimes bothers him during sleep. He has his humidification level set at 3 at this time . Is melanoma is relatively inactive . [facility] Medical History Bronchial asthma FARIBA (obstructive sleep apnea) Obesity (BMI 35.0-39.9 without comorbidity) Social History Patient Tobacco Use Status: Never used Tobacco Review of Systems Const All systems reviewed & are unremarkable except as noted in HPI and below Eyes Reports no additional complaints ENT Reports no additional complaints Card Denies chest pain, Denies irregular heart rhythm and Denies leg edema Resp Reports as per HPI GI Reports no additional complaints Reports no additional complaints Musc Reports myalgias and Reports arthralgias Skin/Breast Reports system reviewed and no additional complaints, except as documented Neuro Reports no additional complaints Psych Reports no additional complaints Endo Reports no additional complaints Physical Exam Vital Signs: Last Vital Signs Pulse 75 10/29/24 11:09 Resp 18 10/29/24 11:09 BP 118/60 10/29/24 11:09 Pulse Ox 97 10/29/24 11:09 Oxygen Delivery Method Room Air 10/29/24 11:09 BMI result Body Mass Index 38.7 Const Other: Has a round face. Short and obese neck, Mallampati class 4. General: comfortable, no acute distress, alert and awake Orientation/consciousness: patient oriented x3 HEENT Head: Yes normal to inspection General nose exam: No nasal polyps present and No nasal discharge present Face and sinus: Yes sinuses nontender Mouth: oropharynx abnormals (Oropharynx is narrow and crowded, Mallampati class 3) Throat: Yes posterior oropharynx normal Eyes General: appearance normal, both eyes and all related structures Neck Neck: Yes normal visual inspection, Yes no lymphadenopathy, Yes trachea midline, Yes no JVD and Yes other (Neck circumference 19 in) Thyroid: Thyroid normal Chest Chest palpation & inspection: normal inspection of the chest, normal palpation of entire chest wall and no tenderness Resp Effort & Inspection: normal respiratory effort Auscultation: clear to auscultation bilaterally, no crackles and no wheezes Cardio Palpation: normal PMI Rate: regular rate Rhythm: regular rhythm Heart sounds: no gallops and no murmurs Peripheral pulses: Peripheral pulses 2+ throughout GI Inspection: Yes other (Abdomen is obese and protuberant) Palpation (GI): Soft to palpation, nontender, No hepatosplenomegaly present and no masses Auscultation: normal bowel sounds Back/Spine/Pelvis Thoracic/Lumbar Spine: thoracic and lumbar spine normal to inspection Skin General skin exam: no rashes or lesions noted Neuro General: patient oriented x3 and no focal motor deficits Cranial nerves: Yes CN's II-XII intact bilaterally Extrem General: Yes normal to inspection, Yes no clubbing, cyanosis or edema and Yes no calf tenderness Psych Appearance: grossly normal and well kempt Speech and movement: Normal speech and movement present Results Reviewed Results Reviewed: Compliance report not printed this time, but he claims that he is using it every night for at least 6 hours, and sleeps well. Assessment & Plan Assessment & Plan (1) Obesity (BMI 35.0-39.9 without comorbidity): Comment: Patient is GROSSLY obese .BMI=38.7 , has lost about 3 lb of weight in the last 4 months HE IS AWARE OF THIS ISSUE, LATELY HAS NOT BEEN ABLE TO DO MUCH WALKING DUE TO MELANOMA OF THE RIGHT FOOT. Code(s): E66.9 - Obesity, unspecified Category: Medical Plan: Discussed about need to lose some weight. Encouraged to cut down the intake of calories, and eat more. salads and vegetables (2) Bronchial asthma: Comment: He has mild reactive airways/bronchial asthma, stable. Code(s): J45.909 - Unspecified asthma, uncomplicated Category: Medical Plan: Use albuterol HFA 2 puffs Q 6 hours p.r.n. (3) FARIBA (obstructive sleep apnea): Comment: HE HAS MODERATELY SEVERE OBSTRUCTIVE SLEEP APNEA, TREATED WITH USE OF CPAP. COMPLIANCE IS EXCELLENT. HAS BEEN USING CPAP VERY REGULARLY AND BENEFITING FROM IT. HIS SLEEP QUALITY HAS BEEN FAIRLY GOOD. HAS SOME PROBLEM WITH WATER COLLECTING IN THE HOSE. Code(s): G47.33 - Obstructive sleep apnea (adult) (pediatric) Category: Medical Plan: I ADVISED HIM TO REDUCE THE LEVEL OF HUMIDITY TO MEDIUM, AND ALSO CALL DME , AND CAN HAVE HIS MACHINE CHECKED BY THEM. Coding Level of Care Code Est Pt Level 3 (99985) Diagnoses Obesity (BMI 35.0-39.9 without comorbidity) E66.9 Bronchial asthma J45.909 FARIBA (obstructive sleep apnea) G47.33
--- OUTSIDE RECORDS SUMMARY | 2024-10-29 12:12 | XMS_ITS | Encounter Summary ---
Author Organization [employer] Address 75 [facility] 7t [place] [address] Care Team Providers Care Entertainment Director Name Role Phone Alejandrina [facility] Primary Care Provider [phone] Reason for Visit * Reason Comments Med Refill Encounter Details Date Type Department Care Team ([facility] st Contact Info) Description 10/02/2024 Refill [facility] [address] [place], [place] [phone] [place], [facility] 230 [place] [address] Metabolic syndrome Social History Tobacco Use Types Packs/Day Years [...] Care Team (Late st Contact Info) Description 11/26/2024 11:15 AM EDT Office Visit [facility] [address] [place] [address] Ondina Tinoco FNP [address] [place] [address] documented as of this encounter Visit Diagnoses Diagnosis Metabolic syndrome Dysmetabolic Syndrome X documented in this encounter Additional Health Concerns Assessment Noted Time PHQ-9 Depression Total Score: 0 05/25/19 25 11:13 AM EST documented as of this encounter Care Teams Entertainment Director Relationship Specialty Start Date End Date Ondina Tinoco FNP [address] [place] [address] PCP - General Family Medicine 01/13/21 documented as of this encounter
--- OUTSIDE RECORDS SUMMARY | 2024-10-29 12:12 | XMS_ITS | Clinical Summary ---
Author Organization [address] [facility] Address 175 [place] [address] Phone Care Team Providers Care Cake Stripper Name Role Phone Alejandrina Ondina Primary Care Provider Active Problems Problem Noted Date Diagnosed Date Bunion of great toe of right foot 03/07/2024 Social History Tobacco Use Types Packs/Day Years Used Date Smoking Tobacco: Never Assessed Sex and Gender Information Value Date Recorded Sex Assigned at Not on file Legal Sex Male 5:41 PM EST Gender Identity Not on file Sexual Orientation Not on file Plan of Treatment Upcoming Encounters Date Type Department Care Team ([facility] Contact Info) Description 12/11/2024 10:00 AM EDT Consult Orthopedic Surgery [facility] [address] [phone] Nazario Walker, DPM [address] [address] Health Maintenance Due Date Last Done Comments DTaP,Tdap,and Td Vaccines (1 - Tdap) 1981 Pneumococcal Vaccine: 50+ Ye ars (1 of 1 - PCV) 2012 Zoster Vaccines (1 of 2) 2012 COVID-19 Vaccine ( - 2023-2 5 season) 2023 Cholesterol Screening (Lipid Panel) 01/31/2024 Colorectal Cancer Screening: Colonoscopy 01/31/2024 Depression Screening 01/31/2024 HIV Screening 01/31/2024 Hepatitis C Screening 01/31/2024 Social Influencers of Health Screening 01/31/2024 Influenza Vaccine (#1) 2024 RSV Immunization Adult Patie nts (1 - 1-dose 75+ series) 2037 HIB Vaccines Aged Out No longer eligi ble based on patient's age to complete this topic HPV Vaccines Aged Out No longer eligi ble based on patient's age to complete this topic Hepatitis A Vaccines Aged Out No long er eligible based on patient's age to complete this topic Hepatitis B Vaccines Aged Out No long er eligible based on patient's age to complete this topic IPV Vaccines Aged Out No longer eligi ble based on patient's age to complete this topic MMR Vaccines Aged Out No longer eligi ble based on patient's age to complete this topic Meningococcal ACWY Vaccine Aged Out N o longer eligible based on patient's age to complete this topic Meningococcal B Vaccine Aged Out No l onger eligible based on patient's age to complete this topic RSV Immunization Patients Un zachariah 20 months Aged Out No longer eligible b ased on patient's age to complete this topic Varicella Vaccines Aged Out No longer eligible based on patient's age to complete this topic Insurance MEDICAID - [place] MEDICARE Care Teams Cake Stripper Relationship Specialty Start Date End Date Ondina Tinoco [address] [place] [phone] [facility] - General 12/16/23
== END 2024-10-29 11:30 | disposition home or self-care (01) ==
LOC: HO.HPS 11:07
PROVIDERS: PCP Registered Nurse; Visit Provider Internal Medicine
DX: E66.9 Obesity, unspecified (principal); J45.909 Unspecified asthma, uncomplicated; G47.33 Obstructive sleep apnea (adult) (pediatric)
CPT/HCPCS: 99213

== ENCOUNTER → 2024-10-29 11:07 | Outpatient (BNVA) | payer MEDICAID, SELFPAY | PROVIDERS: PCP Registered Nurse; Visit Provider Internal Medicine | DX: G47.33 Obstructive sleep apnea (adult) (pediatric) (principal); E66.9 Obesity, unspecified; J45.909 Unspecified asthma, uncomplicated | CPT/HCPCS: 99212 ==

== ENCOUNTER 2024-12-31 10:21 | Outpatient (REF) | payer MEDICAID, SELFPAY ==
[2024-12-31 11:34] LABS: Hemoglobin A1C 138.8380 umol/L; Total Hemoglobin (HGBA1C) 3668.4701 umol/L
[2024-12-31 12:19] LABS: Alanine Aminotransferase 37 U/L (0-40); Albumin Level 4.3 g/dL (3.5-5.0); Alkaline Phosphatase 80 U/L (39-117); Anion Gap 11 (12-20); Aspartate Amino Transferase 29 U/L (5-37); Blood Urea Nitrogen 9 mg/dL (9-16); Calcium 8.8 mg/dL (8.4-10.2); Carbon Dioxide 30 mmol/L (22-29); Chloride 103 mmol/L (96-108); Cholesterol 147 mg/dL (<200); Estimated Glomerular Filt Rate 54; HDL Cholesterol 42 mg/dL (>40); Potassium 3.6 mmol/L (3.3-5.1); Sodium 140 mmol/L (135-145); Total Protein 7.1 g/dL (6.5-8.0); Triglycerides 57 mg/dL (<150)
--- OUTSIDE RECORDS SUMMARY | 2024-12-31 13:08 | XMS_ITS | Encounter Summary ---
Author Organization [employer] Address 75 [facility] 7t [place] [address] Care Team Providers Care Ice Grinder Name Role Phone Alejandrina [facility] Primary Care Provider [phone] Reason for Visit * Reason Comments Med Refill Encounter Details Date Type Department Care Team ([facility] st Contact Info) Description 10/02/2024 Refill [facility] 230 [place], [place] [phone] [place] [facility] 230 [place] [address] Metabolic syndrome Social History Tobacco Use Types [...] Care Team (Late st Contact Info) Description 03/01/2025 11:00 AM EST Office Visit [facility] 230 [place] [address] Ondina Tinoco FNP [address] [place] [address] documented as of this encounter Visit Diagnoses Diagnosis Metabolic syndrome Dysmetabolic Syndrome X documented in this encounter Additional Health Concerns Assessment Noted Time PHQ-9 Depression Total Score: 0 05/25/19 25 11:13 AM EST documented as of this encounter Care Teams Ice Grinder Relationship Specialty Start Date End Date Ondina Tinoco FNP [address] [place] [address] PCP - General Family Medicine 01/13/21 documented as of this encounter
--- OUTSIDE RECORDS SUMMARY | 2024-12-31 13:09 | XMS_ITS | Clinical Summary ---
Author Organization [facility] Address [address] [address] Phone Care Team Providers Care Sink Maker Name Role Phone Pcp, Unknown Primary Care Provider Unavailabl e Social History Tobacco Use Types Packs/Day Years Used Date Smoking Tobacco: Never Assessed Education Answer Date Recorded Are you interested in more education? Not on hiral e 01/06/2024 Are you concerned about learning? Not on file 01/06/2024 No 01/06/2024 No 01/06/2024 Digital Access Answer Date Recorded No 01/06/2024 No 01/06/2024 Reliable internet access at home? Not on file 01/06/2024 Device with a working camera? Not on file Sex and Gender Information Value Date Recorded Sex Assigned at Not on file Legal Sex Male 4:12 PM EDT Gender Identity Not on file Sexual Orientation Not on file Plan of Treatment Health Maintenance Due Date Last Done Comments Adult Td,Tdap Booster 1962 LIPID PANEL 1962 DEPRESSION SCREENING 1974 SMOKING Hx and SMOKELESS TOB ACCO SCREENING 09/01/1975 HEPATITIS C SCREENING 1980 HIV ONE-TIME SCREENING (18-6 5 YEARS) 1980 COLOGUARD 09/01/2007 COLONOSCOPY 09/01/2007 COLORECTAL CANCER SCREENING 09/01/2007 FIT TEST 09/01/2007 FOBT 09/01/2007 SIGMOIDOSCOPY 09/01/2007 VIRTUAL COLONOSCOPY 09/01/2007 PNEUMOCOCCAL VACCINES (50+ y ears) (1 of 1 - PCV) 2012 ZOSTER VACCINES (1 of 2) 2012 INFLUENZA VACCINE (#1) 2024 COVID-19 VACCINE (1 - 2023-2 5 season) 2024 RSV VACCINE (1 - 1-dose 75+ series) 2037 HEPATITIS A VACCINES Aged Out No long er eligible based on patient's age to complete this topic HIB VACCINES Aged Out No longer eligi ble based on patient's age to complete this topic MENINGOCOCCAL VACCINES (ACWY) Aged Out No longer eligible based on patient's age to complete this topic MENINGOCOCCAL VACCINES (B) Aged Out N o longer eligible based on patient's age to complete this topic Medical Devices Not on file Insurance [facility] [place] [facility] [place] A Care Teams Sink Maker Relationship Specialty Start Date End Date Pcp, Unknown PCP - General 12/28/23 Additional Source Comments The information contained in this document represents components of the legal health record. It is not the complete legal health record.[facility]
--- OUTSIDE RECORDS SUMMARY | 2024-12-31 13:09 | XMS_ITS | Encounter Summary ---
Author Organization [employer] Address 75 [facility] 7t [place] [address] Care Team Providers Care Green Ware Caster Name Role Phone Ondina Tinoco [facility] Primary Care Provider [phone] Reason for Visit * Reason Onset Date Comments PT1 03/12/2024 Encounter Details Date Type Department Care Team ([facility] st Contact Info) Description 03/12/2024 Telephone [facility] [address] [place] [address] [place] Ondina, [facility] 230 [place] [address] PT1 Social History Tobacco Use Types Packs/Day [...] any questions you can contact pt at [phone]. (Palestinian Speaker) * Telephone Encounter - Sammie Bajwa - 03/12/2024 3:23 PM EST Patient calling requesting PT1 Home Address verified: Y/N: Yes Provider name or facility name: [facility] Facility Address: [address] [place] [address] Escort needed: Y/N: No Do you have a wheelchair: Y/N: No If yes- Manual or electric: Visits: 4x a month for 12 months documented in this encounter Plan of Treatment Upcoming Encounters Date Type Department Care Team ([facility] st Contact Info) Description 03/01/2025 11:00 AM EST Office Visit [facility] [address] [place] [address] SherwoodOndina [facility] [address] [place] [address] documented as of this encounter Visit Diagnoses Not on filedocumented in this encounter Additional Health Concerns Assessment Noted Time PHQ-9 Depression Total Score: 0 12/09/19 24 11:12 AM EDT documented as of this encounter Care Teams Green Ware Caster Relationship Specialty Start Date End Date Ondina Tinoco FNP [address] [place] [address] PCP - General Family Medicine 01/13/21 documented as of this encounter
--- OUTSIDE RECORDS SUMMARY | 2024-12-31 13:09 | XMS_ITS | Encounter Summary ---
Author Organization [employer] Address 75 [facility] 7t [place] [address] Care Team Providers Care Asset Protection Assistant Name Role Phone Alejandrina [facility] Primary Care Provider [phone] Reason for Visit * Reason Comments Med Refill Encounter Details Date Type Department Care Team ([facility] st Contact Info) Description 04/27/2023 Refill [facility] 230 [place], [place] [phone] [facility] 230 [place], [place] [phone] Social History Tobacco Use Types Packs/Day Years [...] Description 03/01/2025 11:00 AM EST Office Visit [facility] 230 [place] [address] Ondina Tinoco FNP 230 [place] [address] documented as of this encounter Visit Diagnoses Not on filedocumented in this encounter Additional Health Concerns Assessment Noted Time PHQ-9 Depression Total Score: 0 01/29/20 23 11:56 AM EDT documented as of this encounter Care Teams Asset Protection Assistant Relationship Specialty Start Date End Date Ondina Tinoco FNP 230 [place] [address] PCP - General Family Medicine 01/13/21 documented as of this encounter
--- OUTSIDE RECORDS SUMMARY | 2024-12-31 13:09 | XMS_ITS | Encounter Summary ---
Author Organization [employer] Address [address] [place] [address] 7t [place] [address] Care Team Providers Care Manager Pipeline Name Role Phone BoqueronOndina [facility] Primary Care Provider [phone] Encounter Details Date Type Department Care Team (Late st Contact Info) Description 03/10/2022 Abstract [facility] [address] [place] [address] Provider, MD Yenny Social History Tobacco Use [...] Description 03/01/2025 11:00 AM EST Office Visit [facility] [address] [place] [address] Ondina Tinoco FNP [address] [place] [address] documented as of this encounter Visit Diagnoses Not on filedocumented in this encounter Care Teams Manager Pipeline Relationship Specialty Start Date End Date Ondina Tinoco FNP [address] [place] [address] PCP - General Family Medicine 01/13/21 documented as of this encounter
--- OUTSIDE RECORDS SUMMARY | 2024-12-31 13:09 | XMS_ITS | Encounter Summary ---
Author Organization [employer] Address 75 [facility] 7t [place] [address] Care Team Providers Care Manufacturing Tech Name Role Phone Alejandrina [facility] Primary Care Provider [phone] Reason for Visit * Reason Onset Date Comments PT-1 04/04/2024 Encounter Details Date Type Department Care Team ([facility] Contact Info) Description 04/04/2024 Telephone [facility] 230 [place], [place] [phone] Frederick Holcomb, [facility] [address] [place] [address] PT-1 Social History Tobacco Use Types Packs/Day [...] Y/N: Yes Provider name or facility name: [facility] Escort needed: Y/N: No Do you have a wheelchair: Y/N: No If yes- Manual or electric: Visits: (3) (xmonthly) 2. Patient calling requesting PT1 Home Address verified: Y/N: Yes Provider name or facility name: [address] [place] [address] Escort needed: Y/N: No Do you have a wheelchair: Y/N: No If yes- Manual or electric: Visits: (3) ( x monthly) documented in this encounter Plan of Treatment Upcoming Encounters Date Type Department Care Team (Late st Contact Info) Description 03/01/2025 11:00 AM EST Office Visit [facility] [address] [place] [address] [facility] [address] [place] [address] documented as of this encounter Visit Diagnoses Not on filedocumented in this encounter Additional Health Concerns Assessment Noted Time PHQ-9 Depression Total Score: 0 12/09/19 24 11:12 AM EDT documented as of this encounter Care Teams Manufacturing Tech Relationship Specialty Start Date End Date Alejandrina LISA N[place] [address] [place] [address] PCP - General Family Medicine 01/13/21 documented as of this encounter
--- OUTSIDE RECORDS SUMMARY | 2024-12-31 13:09 | XMS_ITS | Encounter Summary ---
Author Organization [employer] Address 75 [facility] 7t [place] [address] Care Team Providers Care Pie Baker Name Role Phone Alejandrina [facility] Primary Care Provider [phone] Reason for Visit * Reason Onset Date Comments PT-1 09/13/2024 Encounter Details Date Type Department Care Team ([facility] Contact Info) Description 09/13/2024 Telephone [facility] 230 [place], [place] [phone] Orlando Platter, [facility] 230 [place] [address] PT-1 Social History Tobacco Use Types Packs/Day [...] * Telephone Encounter - Torres Mccoy - 09/13/2024 9:32 AM EDT Patient calling requesting PT1 Home Address verified: Y/N: Yes Provider name or facility name: [address] [address] Escort needed: Y/N: Yes Do you have a wheelchair: Y/N: No If yes- Manual or electric: no Visits: (2) documented in this encounter Plan of Treatment Upcoming Encounters Date Type Department Care Team (Late st Contact Info) Description 03/01/2025 11:00 AM EST Office Visit [facility] [address] [place] [address] Ondina Tinoco FNP [address] [place] [address] documented as of this encounter Visit Diagnoses Not on filedocumented in this encounter Additional Health Concerns Assessment Noted Time PHQ-9 Depression Total Score: 0 05/25/19 25 11:13 AM EST documented as of this encounter Care Teams Pie Baker Relationship Specialty Start Date End Date Onidna Tinoco FNP 230 [place] [address] PCP - General Family Medicine 01/13/21 documented as of this encounter
--- OUTSIDE RECORDS SUMMARY | 2024-12-31 13:09 | XMS_ITS | Encounter Summary ---
Author Organization [employer] Address [address] [facility] 7t [place] [address] Care Team Providers Care Cotton Breeder Name Role Phone Mosca, [facility] Primary Care Provider [phone] Reason for Visit * Reason Comments Med Refill Encounter Details Date Type Department Care Team ([facility] st Contact Info) Description 03/06/2024 Refill [facility] MED[facility]INE [address] [place] [address] [facility] [address] [place] [address] Tinea pedis of both feet Social History [...] Description 03/01/2025 11:00 AM EST Office Visit [facility] MED[facility] [address] [place] [address] Ondina Tinoco FNP [address] [place] [address] documented as of this encounter Visit Diagnoses Diagnosis Tinea pedis of both feet documented in this encounter Additional Health Concerns Assessment Noted Time PHQ-9 Depression Total Score: 0 12/09/19 24 11:12 AM EDT documented as of this encounter Care Teams Cotton Breeder Relationship Specialty Start Date End Date Ondina Tinoco FNP [address] [place] [address] PCP - General Family Medicine 01/13/21 documented as of this encounter
--- OUTSIDE RECORDS SUMMARY | 2024-12-31 13:09 | XMS_ITS | Clinical Summary ---
Author Organization [employer] Address [address] [facility] 7t [place] [address] Care Team Providers Care Pharmaceutical Sales Name Role Phone Ondina Tinoco [facility] Primary Care Provider [phone] Allergies No known active allergies Medications * This document contains information received from the source organization and may not represent a complete record from that organization. Diclofenac Sodium 1 % gel Apply 2 [...] THE MORNING 30 tablet 11 024 Active psyllium (Reguloid) 57.6 % powderIndications :Class 2 severe obesity due to excess calories with serious comorbidity and body mass index (BMI) of 38.0 to 38.9 in adult ([facility]) MIX 2-3 TEASPOONFUL OF POWDER IN 8 OUNCES OF WATER THREE TIMES DAILY BEFORE A MEAL 284 g 11 024 Active topiramate (Topamax) 50 MG tabletIndications :Class 2 severe obesity due to excess calories with serious comorbidity and body mass index (BMI) of 38.0 to 38.9 in adult ([facility]) TAKE 2 TABLETS BY MOUTH EVERY DAY BEFORE SUPPER 60 tablet 024 Active fluticasone furoate (Arnuity Ellipta) 100 MCG/ACT inhaler Inhale 1 puff Once per day. Rinse mouth with water after use to reduce aftertaste and incidence of candidiasis. Do not swallow. 1 each 025 2025 Active furosemide (Lasix) 20 MG tabletIndications :Edema, unspecified type TAKE 1 TO 2 TABLETS BY MOUTH EVERY DAY NEEDED FOR EDEMA 90 tablet 025 Active Ventolin HFA 108 (90 Base) MCG/ACT inhaler INHALE 2 PUFFS BY MOUTH EVERY 4 HOURS NEEDED FOR WHEEZING OR SHORTNESS OF BREATH 18 g 025 Active Tirzepatide-Weigh t Management (Zepbound) 7.5 MG/0.5ML solution auto-injectorIndi cations:Class 3 severe obesity due to excess calories with serious comorbidity and body mass index (BMI) of 40.0 to 44.9 in adult Inject 0.5 mL (7.5 mg) under the skin 1 (one) time per week. 2 mL 025 2025 Active cyanocobalamin (Vitamin B-12) 1000 MCG tablet TAKE 1 TABLET BY MOUTH EVERY MORNING 90 tablet 025 Active D3 Super Strength 50 MCG (2000 UT) capsule TAKE 1 CAPSULE BY MOUTH EVERY DAY 90 capsule 025 Active ibuprofen 600 MG tabletIndications :Chronic bilateral low back pain without sciatica TAKE 1 TABLET BY MOUTH TWICE DAILY WITH FOOD NEEDED FOR BACK PAIN 60 tablet 1 025 Active cyanocobalamin (Vitamin B-12) 1000 MCG tablet TAKE 1 TABLET BY MOUTH EVERY DAY IN THE MORNING 90 tablet 3 024 2024 Discontinued D3 Super Strength 50 MCG (2000 UT) capsule TAKE 1 CAPSULE BY MOUTH EVERY DAY 90 capsule 025 2024 Discontinued ibuprofen 600 MG tabletIndications :Chronic bilateral low back pain without sciatica TAKE 1 TABLET BY MOUTH TWICE DAILY WITH FOOD NEEDED FOR BACK PAIN 60 tablet 1 025 2024 Discontinued Active Problems Problem Noted Date Diagnosed Date Moderate major depression, single episode 2024 Anxiety 11/26/2024 Metastatic melanoma 06/03/2024 Metabolic syndrome 06/03/2024 Mild intermittent asthma 05/10/2022 Overview (05/10/2022): PFT's from 05/2021, results concerning for possible interstitial lung disease with recommendation for pulmonary referral. Seen by [facility] pulmonology 12/2021 - per visit note mild bronchial asthma. Albuterol PRN recommended Pulm also managing CPAP Assessment & Plan (09/12/2022 10:03 AM EDT): Continue current regimen Sx improving with recent weight loss Mixed hyperlipidemia 05/10/2022 Overview (09/12/2022): Atorvastatin 10mg daily ASCVD 7.1% 05/2022 Assessment & Plan (09/12/2022 10:04 AM EDT): Continue current regimen Healthcare maintenance 05/10/2022 Overview (09/12/2022): C-Scope: Cologuard neg 06/2022. Repeat 06/2025 PSA:10/2021, 2.71; repeat 10/2022 HCV Screen: Neg 2017 HIV Screen: Neg 2018 Vision Exam: Previously referred to [facility] vision care Dental Care: [facility] 05/04/2022 Overview (05/10/2022): Chronic bilateral lower extremity edema Initial labs: TSH, CMP with mild elevation in creatinine Responding well to PRN lasix 20mg Echocardiogram 12/2021 with mild aortic regurgitation, otherwise negative Assessment & Plan (09/12/2022 10:03 AM EDT): Likely mild venous insufficiency Continue PRN lasix 20mg Continue frequent leg elevation and use of compression stockings Contact HC if sx worsen, otherwise will continue to monitor. No indication for vascular referral at this time. Assessment & Plan (05/10/2022 3:35 PM EST): Likely mild venous insufficiency Continue PRN lasix 20mg Continue frequent leg elevation and use of compression stockings Contact HC if sx worsen, otherwise will continue to monitor. No indication for vascular referral at this time. Obesity (BMI 35.0-39.9 without comorbidity) 04/18 Obstructive sleep apnea 04/02/2021 Overview (05/10/2022): Compliant with CPAP Thiamin deficiency 02/09/2018 Vitamin D deficiency 01/26/2018 Chronic low back pain 08/25/2016 Overview (08/03/2023): Injured low back > 10 years ago d/t heavy lifting. 2013 MRI lumbar spine with severe degenerative changes. Followed by pain management in [place] and reports moderate relief with steroid injections. Failed duloxetine trial (s/e) Assessment & Plan (12/25/2022 6:25 PM EDT): Continue to follow with pain mngmt Seek immediate medical care if experiencing LE weakness, bowel/bladder dysfunction, fever, or saddle anesthesia. Alcohol dependence, binge pattern 08/25/2016 Overview (12/25/2022): Thiamine and vitamin D supplementation 12 drinks/day-decreased to 6 drinks/day weekend only Assessment & Plan (12/25/2022 6:27 PM EDT): Continue vitamin supplementation Congratulated patient on successfully decreasing intake Pt will continue to decrease ETOH with goal of no more than 2 drinks/day on the weekends Pt declines referral to [facility] Assessment & Plan (09/12/2022 10:02 AM EDT): Congratulated patient on sobriety Patient will reach out if feels further support needed. Declines referral to AUD clinic Resolved Problems Problem Noted Date Diagnosed Date Resolved Date Class 2 severe obesity due t o excess calories with serious comorbidity and body mass index (BMI) of 38.0 to 38.9 in adult 09/12/2022 4 Overview (10/12/2022): Topiramate 100mg before evening meal Premeal fiber Assessment & Plan (12/25/2022 6:29 PM EDT): Pt with 1lb weight gain since last visit in September Pt will RESTART topiramate and premeal fiber If patient tolerates cymbalta start well, will [...] - Some recent data might be hidden Patient doing very well Continue current regimen Renal cyst 01/26/2018 05/10/2022 Moderate chronic obstructive pulmonary disease 08/25/2016 05/10/2022 Encounters * This document contains information received from the source organization and may not represent a complete record from that organization. Date Type Department Care Team Description 12/24/2024 Telephone [facility] MEDICINE [address] [place] [address] Ondina Tinoco FNP Pt1 12/16/2024 Refill [facility] [place] [address] Ondina Tinoco FNP Chronic bilateral low back pain without sciatica 12/13/2024 Refill [facility] MEDICINE [address] [place] [address] Ondina Tinoco FNP 12/12/2024 Telephone [facility] MEDICINE 230 [facility] [place] [address] Onidna Tinoco FNP PT1 12/12/2024 Refill [facility] [address] [facility] [place] [address] AlejandrinaOndina FNP 11/26/2024 11:15 AM EDT Office Visit [facility] [address] [facility] [place] [address] Ondina Tinoco FNP Metastatic melanoma (CMS/HCC) (Primary Dx); Depression, unspecified depression type; Class 3 severe obesity due to excess calories with serious comorbidity and body mass index (BMI) of 40.0 to 44.9 in adult; Dietary counseling 11/26/2024 Telephone [facility] [address] [facility] [place] [address] HaverhillOndina saravia FNP Care Coordination 11/26/2024 Travel 11/24/2024 Refill [facility] WALK-IN C[facility] [address] [place] [address] Maryann Solomon DO 11/23/2024 Telephone [facility] MEDICINE [address] [facility] [place] [address] Ondina Tinoco FNP Chart Prep 11/15/2024 Patient Outreach [address] [place] [address] Ondina Tinoco FNP Pre-visit Planning ([facility] screening completed on 05/25/2024) 11/07/2024 Refill [facility] [address] [facility] [place] [address] Ondina Tinoco FNP Edema, unspecified type 10/23/2024 Telephone [facility] MED & PEDS [address] [place], [place] [phone] Ondina Tinoco FNP Prior Authorization ( PA: Geraldo) 10/08/2024 Refill [facility] [address] [facility] [place] [address] Ondina Tinoco FNP Metabolic syndrome; Chronic bilateral low back pain without sciatica 10/05/2024 3:20 PM EDT Office Visit [facility] [address] [place], [place] [phone] Jurcsak, Maryann, DO Mild intermittent asthma without complication (Primary Dx) 10/05/2024 Refill [facility] MEDICINE [address] [place], [place] [phone] Ondina Tinoco FNP Mild intermittent asthma without complication 10/05/2024 Travel 10/02/2024 Refill [facility] MED[facility]INE [address] [place] [address] [facility] Metabolic syndrome 10/01/2024 Patient Outreach [facility] [address] [place], [place] [phone] Ondina Tinoco FNP Care Coordination ([facility] outreach for SDOH PT-1 and food needs-referral completed /) 10/01/2024 Telephone [facility] MEDICINE [address] [place], [place] [phone] Ondina Tinoco FNP PT1 from Last 3 Months Immunizations Immunization Administration Dates Next Due Hep A, Adult [...] Answer Date Recorded Patient Health Questionnaire-9 Score 14 11/26/2024 Patient Health Questionnaire-9 Score 14 11/26/2024 Last PHQ-9: Questionnaire Data Not on file 0 11/26/2024 Housing Stability Answer Date Recorded What is [...] Answer Date Recorded Patient Health Questionnaire-2 Score 3 11/26/2024 Internet Access Answer Date Recorded Internet Access [...] Sign Reading Time Taken Comments Blood Pressure 130/82 11/26/2024 11:15 AM EDT Pulse 89 11/26/2024 11:15 AM EDT Temperature 36.8 C (98.3 F) 11/26/2024 11:15 AM EDT Respiratory Rate 20 11/26/2024 11:15 AM EDT Oxygen Saturation 97% 10/05/2024 12:57 PM EDT Inhaled Oxygen Concentration - - Weight 113 kg (248 lb 6.4 oz) 11/26/2024 11:15 A M EDT Height 167.6 cm (5' 6 ) 11/26/2024 11:15 AM EDT Body Mass Index 40.09 11/26/2024 11:15 AM EDT Plan of Treatment Upcoming Encounters Date Type Department Care Team (Late st Contact Info) Description 03/01/2025 11:00 AM EST Office Visit [facility] MEDICINE [address] [place] [address] [facility], [facility] [address] [place] [address] Health Maintenance Due Date Last Done Comments CT Colonography 1962 Colonoscopy 1962 FIT 1962 Sigmoidoscopy 1962 Derm Melanoma Skin Check 03/03/1963 FOBT 06/17/2023 06/16/2022 Influenza Vaccine (#1) 2024 , 03/31/2023, 05/04/2022, Additional history exists SDOH Screening 05/25/2025 05/25/2024 Depression Monitoring 05/29/2025 11/26/2024, 025 Colorectal Cancer Screening 09/14/2025 FIT DNA/Cologuard 09/14/2025 09/22/2022, , 06/16/2022 Alcohol/Substance Use Screening 11/26/2025 11/26/2024 Disability Screening 11/26/2025 11/26/2024 Tobacco Screening 11/26/2025 11/26/2024 Lipid Panel 12/31/2029 12/31/2024, 02/0 09/2022, 11/06/2021, Additional history exists DTaP/Tdap/Td Vaccines (3 - Td or Tdap) 11/07/2031 11/06/2021, 12/09/2011 Hepatitis B Vaccines Discontinued 12/22/2007, 09/14/2007, 06/19/2007 Hepatitis A Vaccines Aged Out 10/07/2017, 12/09/19 12 No longer eligible based on patient's age to complete this topic Hepatitis C Screening Discontinued 09/11/2020 Zoster Vaccines Completed 06/08/2022, 11/06/2021 COVID-19 Vaccine Completed 05/25/2024, , 05/04/2022, Additional history exists Pneumococcal Vaccine: 50+ Years Completed 06/15/2024, 07/08/2010, 03/11/2009 RSV Patients and Patients Aged 60 years or older Completed 06/15/2024 HIB Vaccines Aged Out No longer eligi [...] Procedure Name Priority Date/Time Associated Diagnosis Comments LIPID PANEL, STANDARD Routine 12/31/2024 10:39 AM EDT Class 3 severe obesity due to excess calories with serious comorbidity and body mass index (BMI) of 40.0 to 44.9 in adult HEMOGLOBIN A1C Routine 12/31/2024 10:39 AM EDT Class 3 severe obesity due to excess calories with serious comorbidity and body mass index (BMI) of 40.0 to 44.9 in adult COMPREHENSIVE METABOLIC PANEL Routine 12/31/2024 10:39 AM EDT Class 3 severe obesity due to excess calories with serious comorbidity and body mass index (BMI) of 40.0 to 44.9 in adult COLOGUARD COLON CANCER SCREENING (EXTERNAL RESULTS ONLY) Routine 09/22/2022 1:58 PM EDT [facility] HISTORICAL HEPATITIS C AB W/REFL TO HCV RNA, QN, PCR Routine 09/11/2020 8:34 AM EDT from Last 3 Months or Most Recently Relevant to Health Maintenance Results * Hemoglobin A1c (12/31/2024 10:39 AM EDT) Hemoglobin A1c 5.6 <6.0 % [facility] Comment:Hemoglobin A1C Refer ence Range Adults: 4.8 - 6.0 % Non diabetic: < 6.0 % Goal: < 7.0 %Additional Action Suggested: > 8.0 %Note: Hemoglobin A1c results are invalid for patients with abnormal amounts of HbF. Blood transfusions may impact the HbA1c concentration in the patient sample. Estimated Average Glucose 114 mg/dL [facility] Comment:eAG = Estimated ave rage glucose which is %A1C expressed asaverage glucose, using the formula of the [id number]-[id number] Glucose study (ADAG), Diabetes Care, Vol.31,#8,2007 Blood Venous blood specimen / Unknown 12/31/2024 10:39 AM EDT 12/31/2024 11:12 AM EDT [facility] EMERGENCY ROOM CLINICIAN LAB BLOOD ORDERABLES Final Re sult [facility] [address] [place] [phone] * Lipid Panel, Standard (12/31/2024 10:39 AM EDT) Triglycerides 57 <150 mg/dL [facility] Comment:Desirable Triglyceri de: less than 150 mg/dLBorderline High Triglyceride 150-199 mg/dLHigh Triglyceride: 200-499 mg/dLVery High Triglyceride: greater than or equal to 5OO mg/dL Cholesterol 147 <200 mg/dL [facility] Comment:Desirable Cholestero l: less than 200 mg/dLBorderline High Cholesterol: 200-239 mg/dLHigh Cholesterol: greater than 239 mg/dL LDL Cholesterol Calculated 94 <100 mg/dL [facility] Comment:Desirable LDL: less than 100 mg/dLNear Optimal/Above Optimal LDL: 110- 129 mg/dLBorderline High LDL: 130-159 mg/dLHigh LDL: 160-189 mg/dLVery High LDL: greater than or equal to 190 mg/dL HDL Cholesterol 42 >40 mg/dL [facility] Comment:Desirable HDL: great er than 40 mg/dL Note: This HDL assay may give artificially low results in patients with liver disease. Blood Venous blood specimen / Unknown 12/31/2024 10:39 AM EDT 12/31/2024 11:12 AM EDT [facility] EMERGENCY ROOM CLINICIAN LAB BLOOD ORDERABLES Final Re sult [facility] [address] [place] [phone] * (ABNORMAL) Comprehensive Metabolic Panel (12/31/2024 10:39 AM EDT) Sodium 140 135 - 145 mmol/L [facility] Potassium 3.6 3.3 - 5.1 mmol/L [facility] Chloride 103 96 - 108 mmol/L [facility] Carbon Dioxide 30(H) 22 - 29 mmol/L [facility] Anion Gap 11(L) 12 - 20 [facility] Urea Nitrogen (BUN) 9 9 - 16 mg/dL [facility] Creatinine, Serum 1.35 0.5 - 1.4 mg/dL [facility] Estimated Glomerular Filt Rate 54 [facility] Comment:Chronic Kidney Disea se: Estimated GFR < 60 mL/min/1.33u6Clisbl Kidney Disease: Estimated GFR < 15 mL/min/1.73m2 Glucose 100 60 - 115 mg/dL [facility] Calcium 8.8 8.4 - 10.2 mg/dL [facility] Bilirubin, Total 0.7 0.0 - 1.0 mg/dL [facility] Aspartate Amino Transferase 29 5 - 37 U/L [facility] Alanine Aminotransferase 37 0 - 40 U/L [facility] Total Protein 7.1 6.5 - 8.0 g/dL [facility] Albumin Level 4.3 3.5 - 5.0 g/dL [facility] Alkaline Phosphatase 80 39 - 117 U/L [facility] Blood Venous blood specimen / Unknown 12/31/2024 10:39 AM EDT 12/31/2024 11:12 AM EDT [facility] LAB BLOOD ORDERABLES Final Re sult [facility] [address] [place] [phone] * Cologuard Colon Cancer Screening (09/22/2022 1:58 PM EDT) Cologuard Cancer Screen Negative Stool 09/22/2022 1:58 PM EDT [facility] POINT OF CARE TEST ENTER/EDIT ORDERABLES Final Result * HEPATITIS C AB W/REFL TO HCV RNA, QN, PCR (09/11/2020 8:34 AM EDT) HEPATITIS C ANTIBODY NON-REACT BARBARA NON-REACT BARBARA [facility] INDEX 0.01 <1.00 [facility] Comment: HCV antibody was non-reactive. There is no laboratory evidence of HCV infection. In most cases, no further action is required. However, if recent HCV exposure is suspected, a test for HCV RNA (test code 59353) is suggested. For additional information please refer to http://education.[employer]/faq/DAH20q3 (This link is being provided for informational/ educational purposes only.) 09/11/2020 8:34 AM EDT Historical Provider MD HISTORICAL/NON ORDERABLE LABS Final Result [facility] [address] from Last 3 Months or Most Recently Relevant to Health Maintenance Insurance [facility] C3 Care Teams Pharmaceutical Sales Relationship Specialty Start Date End Date Ondina Tinoco FNP [address] [place] [phone] PCP - General Family Medicine 01/13/21
--- OUTSIDE RECORDS SUMMARY | 2024-12-31 13:09 | XMS_ITS | Encounter Summary ---
Author Organization [employer] Address [address] [facility] 7t [place] [address] Care Team Providers Care Professional Soccer Player Name Role Phone Ondina Tinoco [facility] Primary Care Provider [phone] Reason for Visit * Reason Onset Date Comments PT-1 06/13/2024 Encounter Details Date Type Department Care Team ([facility] Contact Info) Description 06/13/2024 Telephone [facility] MEDICINE [address] [place], [place] [phone] [place], [facility] [address] [place] [address] PT-1 (/) Social History Tobacco Use Types [...] of Visits for Pt 1 for [address] [place] [address] to (4 x Monthly) Visits. Contact pt at [phone] documented in this encounter Plan of Treatment Upcoming Encounters Date Type Department Care Team ([facility] st Contact Info) Description 03/01/2025 11:00 AM EST Office Visit [facility] MEDICINE [address] [place] [address] Ondina Tinoco FNP [address] [place] [address] documented as of this encounter Visit Diagnoses Not on filedocumented in this encounter Additional Health Concerns Assessment Noted Time PHQ-9 Depression Total Score: 0 05/25/19 25 11:13 AM EST documented as of this encounter Care Teams Professional Soccer Player Relationship Specialty Start Date End Date Ondina Tinoco FNP [address] [place] [address] PCP - General Family Medicine 01/13/21 documented as of this encounter
--- OUTSIDE RECORDS SUMMARY | 2024-12-31 13:09 | XMS_ITS | Encounter Summary ---
Author Organization [employer] Address [address] [facility] 7t [place] [address] Care Team Providers Care Medical Safety Director Name Role Phone Alejandrina [facility] Primary Care Provider [phone] Reason for Visit * Reason Comments Med Refill Encounter Details Date Type Department Care Team ([facility] st Contact Info) Description 04/13/2024 Refill [facility] MEDICINE [address] [place], [place] [phone] [facility] [address] [place] [address] Class 2 severe obesity due to excess [...] Description 03/01/2025 11:00 AM EST Office Visit [facility] MEDICINE [address] [place] [address] Ondina Tinoco FNP [address] [place] [address] documented as of this encounter Visit Diagnoses Diagnosis Class 2 severe obesity due to excess calories with serious comorbidity and body mass index (BMI) of 38.0 to 38.9 in adult ([facility]) Mild intermittent asthma without complication Chronic bilateral low back pain without sciatica documented in this encounter Additional Health Concerns Assessment Noted Time PHQ-9 Depression Total Score: 0 12/09/19 24 11:12 AM EDT documented as of this encounter Care Teams Medical Safety Director Relationship Specialty Start Date End Date Ondina Tinoco FNP [address] [place] [address] PCP - General Family Medicine 01/13/21 documented as of this encounter
--- OUTSIDE RECORDS SUMMARY | 2024-12-31 13:09 | XMS_ITS | Encounter Summary ---
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 [place] [address] Phone: tel: fax: Referral ID Status Reason Start Date Expiration Date V isits Requested Visits Authorized [id number] Closed Specialty Services Required 12/27/2023 12/26/2024 1 1 Encounter Details Date Type Department Care Team (Late st Contact Info) Description 12/27/2023 Orders Only [facility] [address] [place], [place] [phone] Ondina Tinoco FNP [address] [place], [place] [phone] Malignant melanoma of right lower extremity including [...] Description 03/01/2025 11:00 AM EST Office Visit [facility] [address] [place] [address] [place] Ondina [facility] [address] [place] [address] documented as of this encounter Procedures Procedure Name Priority Date/Time Associated Diagnosis Comments AMB REFERRAL TO SURGICAL ONCOLOGY STAT 01/03/2024 Malignant melanoma of right lower extremity including hip (CMS/HCC) documented in this encounter Results * Referral to Surgical Oncology (01/03/2024) [facility] OUTPATIENT REFERRAL ORDERABLE S Final Result documented in this encounter Visit Diagnoses Diagnosis Malignant melanoma of right lower extremity including hip (CMS/HCC)- Primary documented in this encounter Additional Health Concerns Assessment Noted Time PHQ-9 Depression Total Score: 0 12/09/19 24 11:12 AM EDT documented as of this encounter Care Teams Technical Support Professional Relationship Specialty Start Date End Date Ondina Tinoco FNP [address] [place] [phone] PCP - General Family Medicine 01/13/21 documented as of this encounter
--- OUTSIDE RECORDS SUMMARY | 2024-12-31 13:09 | XMS_ITS | Encounter Summary ---
Author Organization [employer] Address [address] [facility] 7t [place] [address] Care Team Providers Care Account Executive Metalworking Name Role Phone Ondina Tinoco [facility] Primary Care Provider [phone] Reason for Visit * Reason Onset Date Comments PT1 07/02/2024 Encounter Details Date Type Department Care Team ([facility] st Contact Info) Description 07/02/2024 Telephone [facility] [address] [place] [address] [place] Ondina, [facility] [address] [place] [address] PT1 Social History Tobacco Use Types Packs/Day [...] Y/N: Yes Provider name or facility name: [address] [place] [id number] Escort needed: Y/N: No Do you have a wheelchair: Y/N: No If yes- Manual or electric: N/A Visits: (2x monthly ) documented in this encounter Plan of Treatment Upcoming Encounters Date Type Department Care Team (Late st Contact Info) Description 03/01/2025 11:00 AM EST Office Visit [facility] [address] [place] [address] Ondina Tinoco [facility] [address] [place] [address] documented as of this encounter Visit Diagnoses Not on filedocumented in this encounter Additional Health Concerns Assessment Noted Time PHQ-9 Depression Total Score: 0 05/25/19 25 11:13 AM EST documented as of this encounter Care Teams Account Executive Metalworking Relationship Specialty Start Date End Date Ondina Tinoco FNP [address] [place] [address] PCP - General Family Medicine 01/13/21 documented as of this encounter
--- OUTSIDE RECORDS SUMMARY | 2024-12-31 13:09 | XMS_ITS | Encounter Summary ---
Author Organization [employer] Address [address] [facility] 7t [place] [address] Care Team Providers Care Glass Forming Crew Member Name Role Phone Ondina Tinoco [facility] Primary Care Provider [phone] Reason for Visit * Reason Onset Date Comments PT1 05/01/2024 Encounter Details Date Type Department Care Team ([facility] st Contact Info) Description 05/01/2024 Telephone [facility] [address] [place] [address] [place] Ondina, [facility] [address] [place] [address] PT1 Social History Tobacco Use Types Packs/Day [...] Y/N: Yes Provider name or facility name: [facility] [address] [place] [address] Escort needed: Y/N: No Do you have a wheelchair: Y/N: No If yes- Manual or electric: N/A Visits: (2x monthly) documented in this encounter Plan of Treatment Upcoming Encounters Date Type Department Care Team (Late st Contact Info) Description 03/01/2025 11:00 AM EST Office Visit [facility] [address] [place] [address] Ondina Tinoco FNP [address] [place] [address] documented as of this encounter Visit Diagnoses Not on filedocumented in this encounter Additional Health Concerns Assessment Noted Time PHQ-9 Depression Total Score: 0 12/09/19 24 11:12 AM EDT documented as of this encounter Care Teams Glass Forming Crew Member Relationship Specialty Start Date End Date Ondina Tinoco FNP [address] [place] [address] PCP - General Family Medicine 01/13/21 documented as of this encounter
--- OUTSIDE RECORDS SUMMARY | 2024-12-31 13:09 | XMS_ITS | Encounter Summary ---
Author Organization [employer] Address [address] [facility] [address]t [place] [address] Care Team Providers Care Health Director Name Role Phone Alejandrina [facility] Primary Care Provider [phone] Reason for Visit * Reason Comments Med Refill Encounter Details Date Type Department Care Team ([facility] st Contact Info) Description 10/05/2024 Refill [facility] [address] [place], [place] [phone] [facility] [address] [place] [address] Mild intermittent asthma without complication Social History Tobacco Use Types Packs/Day Years [...] 03/01/2025 11:00 AM EST Office Visit [facility] [address] [place] [phone] Ondina Tinoco FNP [address] [place] [address] documented as of this encounter Visit Diagnoses Diagnosis Mild intermittent asthma without complication documented in this encounter Additional Health Concerns Assessment Noted Time PHQ-9 Depression Total Score: 0 05/25/19 25 11:13 AM EST documented as of this encounter Care Teams Health Director Relationship Specialty Start Date End Date Ondina Tinoco FNP [address] [place] [id number] PCP - General Family Medicine 01/13/21 documented as of this encounter
--- OUTSIDE RECORDS SUMMARY | 2024-12-31 13:09 | XMS_ITS | Clinical Summary ---
Author Organization [address] [facility] Address [address] [place] [address] Phone Care Team Providers Care Birthing Nurse Name Role Phone Ondina Tinoco Primary Care Provider [phone] Active Problems Problem Noted Date Diagnosed Date Bunion of great toe of right foot 03/07/2024 Encounters Date Type Department Care Team Description 12/11/2024 10:00 AM EDT Consult Orthopedic [facility] [address] [phone] Nazario Walker DPM Ulcer of toe of right foot, with fat layer exposed (CMS/HCC V24, CMS/HCC V28) (Primary Dx); Acquired hallux valgus of right foot; Dermatophytosis of nail; Pain in toe of left foot; Pain in toe of right foot; Difficulty walking; Tinea pedis of both feet from Last 3 Months Social History Tobacco Use Types Packs/Day Years Used Date Smoking Tobacco: Never Assessed Sex and Gender Information Value Date Recorded Sex Assigned at Not on file Legal Sex Male 5:41 PM EST Gender Identity Not on file Sexual Orientation Not on file Plan of Treatment Upcoming Encounters Date Type Department Care Team (Late Contact Info) Description 01/21/2025 11:00 AM EDT Office Visit Orthopedic Surgery [facility] [address] [phone] Nazario Walker DPM [address] [phone] Health Maintenance Due Date Last Done Comments Colorectal Cancer Screening: Colonoscopy 01/31/2024 HIV Screening 01/31/2024 Hepatitis C Screening 01/31/2024 Social Influencers of Health Screening 01/31/2024 Depression Screening 04/18/2024 COVID-19 Vaccine (7 - Moderna risk season) 2024 05/25/2024, 03/31/2023, 05/04/2022, Additional history exists Influenza Vaccine (#1) 2024 , 03/31/2023, 05/04/2022, Additional history exists Cholesterol Screening (Lipid Panel) 05/24/2027 05/24/2022 DTaP,Tdap,and Td Vaccines (3 - Td or Tdap) 11/07/2031 11/06/2021, 12/09/2011 Hepatitis B Vaccines Aged Out 12/22/2007, 09/14/2007, 06/19/2007 No longer eligible based on patient's age to complete this topic Hepatitis A Vaccines Completed 10/07/2017, 12/09/19 MMR Vaccines Aged Out 10/07/2017, 12/09/2011 No lo nger eligible based on patient's age to complete this topic Zoster Vaccines Completed 06/08/2022, 11/06/2021 Pneumococcal Vaccine: 50+ Years Completed 06/15/2024, 07/08/2010, 03/11/2009 RSV Immunization Adult Patients Completed 06/15/2024 HIB Vaccines Aged Out No [...] to complete this topic RSV Immunization Patients Under 20 months Aged Out No longer eligible based on patient's age to complete this topic Varicella Vaccines Aged Out No longer eligible based on patient's age to complete this topic Procedures Procedure Name Priority Date/Time Associated Diagnosis Comments XR FOOT 3+ VIEWS RIGHT Routine 12/11/2024 10:01 AM EDT Bunion of great toe of right foot from Last 3 Months Results * XR Foot 3+ Views Right (12/11/2024 10:01 AM EDT) Anatomical Region Laterality Modality Lower Extremities, Foot Right Computed Radiography Narrative 12/11/2024 10:32 AM EDT Right foot 3 views Nonweightbearing films Severe bunion deformity severe hammertoe contractures us Nazario Walker DPM IMG XR PROCEDURES Final R esult from Last 3 Months Insurance MEDICAID - [place] MEDICARE Care Teams Birthing Nurse Relationship Specialty Start Date End Date [facility] [address] [phone] PCP - General 12/16/23
== END 2024-12-31 10:22 | disposition home or self-care (01) ==
LOC: HO.HHCL 10:21
PROVIDERS: PCP Registered Nurse; Visit Provider Registered Nurse
DX: E66.813 Obesity, class 3 (principal); Z68.41 Body mass index [BMI] 40.0-44.9, adult
CPT/HCPCS: 36415; 80053; 80061; 83036

== ENCOUNTER 2025-03-04 10:37 | Outpatient (REF) | payer MEDICAID, SELFPAY ==
[2025-03-04 13:20] LABS: MANUAL DIFF FLAG NO
[2025-03-04 13:43] LABS: Hematocrit 34.6 % (42.0-52.0); Hemoglobin 10.7 g/dl (14.0-18.0); Imm Gran Abs Auto 0.04 X10*3/uL (0.00-0.03); Imm Gran Pct Auto 0.5 % (0.0-0.4); Lymphocytes Absolute Auto 1.6 X10*3/uL (1.2-4.9); Mean Corpuscular HGB Conc 30.9 g/dl (31.0-36.0); Mean Corpuscular Hemoglobin 29.5 pg (27.0-33.0); Mean Corpuscular Volume 95.3 fL (80.0-98.0); NRBC Abs Auto 0.000 X10*3/uL (0.0-0.012); NRBC Pct Auto 0.0 /100WBC (0.0-0.2); Platelet Count 441 X10*3/uL (160-400); Red Blood Count 3.63 X10*6/uL (4.60-5.80); White Blood Count 7.6 X10*3/uL (4.8-10.8)
[2025-03-04 14:16] LABS: Alanine Aminotransferase 80 U/L (0-40); Albumin Level 4.0 g/dL (3.5-5.0); Alkaline Phosphatase 143 U/L (39-117); Anion Gap 11 (12-20); Aspartate Amino Transferase 38 U/L (5-37); Blood Urea Nitrogen 7 mg/dL (9-16); Calcium 9.3 mg/dL (8.4-10.2); Carbon Dioxide 27 mmol/L (22-29); Chloride 101 mmol/L (96-108); Estimated Glomerular Filt Rate > 60; Potassium 4.1 mmol/L (3.3-5.1); Sodium 135 mmol/L (135-145); Total Protein 8.4 g/dL (6.5-8.0)
== END 2025-03-04 10:38 | disposition home or self-care (01) ==
LOC: HO.HHCL 10:37
PROVIDERS: PCP Registered Nurse; Visit Provider Registered Nurse
DX: L03.115 Cellulitis of right lower limb (principal)
CPT/HCPCS: 36415; 80053; 82550; 85025

== ENCOUNTER 2025-03-06 07:39 | Outpatient (REF) | payer MEDICAID, SELFPAY ==
--- NOTE | ~2025-03-06 | US_ITS ---
EXAMINATION: US TRIPLEX LOWER EXTREMITY, RIGHT CLINICAL INFORMATION: Pain COMPARISON: None available. TECHNIQUE: Color-flow triplex imaging with spectral analysis and compression Doppler were performed on the left lower extremity. FINDINGS: Respiratory variation, normal compression and augmented flow are noted throughout the left lower extremity. The visualized common femoral vein, superficial femoral vein, profunda femoral vein, popliteal vein show no evidence of deep venous thrombosis. Calf veins not seen due to edema.. There is no Conteh's cyst. Lymph nodes in the groin, largest measuring 1.9 x 1 x 1.3 cm. US/US venous duplex LE RT IMPRESSION: No evidence of deep venous thrombosis involving the left lower extremity extending from the common femoral vein to the popliteal veins. Calf veins were not seen due to edema. If the patient's symptoms persist, followup ultrasound in 5 days 7 days might be of value to exclude proximal propagation from a non-visualized calf vein. Nonspecific right groin lymph nodes. Electronically signed by: Sarwat Funk MD 03/06/2025 09:20 AM SHEREEN
--- OUTSIDE RECORDS SUMMARY | 2025-03-06 15:07 | XMS_ITS | Clinical Summary ---
Author Organization [facility] Address [address] [address] Phone Care Team Providers Care Employee Development Specialist Name Role Phone Pcp, Unknown Primary Care [...] VACCINE (#1) 2024 COVID-19 VACCINE (1 - 2024-2 6 season) 2024 RSV VACCINE (1 - 1-dose 75+ series) 2037 HEPATITIS A VACCINES Aged Out No long er eligible based on patient's age to complete this topic HIB VACCINES Aged Out No longer eligi ble based on patient's age to complete this topic IPV VACCINES Aged Out No longer eligi ble based on patient's age to complete this topic MENINGOCOCCAL VACCINES (ACWY) Aged Out No longer eligible based on patient's age to complete this topic MENINGOCOCCAL VACCINES (B) Aged Out N o longer eligible based on patient's age to complete this topic Medical Devices Not on file Insurance [facility] A [facility] A [facility] A [place] A Member Subscriber Plan / Payer ( fective 2003-Present) Name:Dillon Harvey Member ID:[id number] Relation to Subscriber:Self Name:Dillon Harvey Subscriber ID:[id number] Payer ID:[id number] Group ID:Not on file Type:Medicare Address: [id number] MEDICARE A [facility] MEDICARE A Care Teams Employee Development Specialist Relationship Specialty Start Date End Date Pcp, Unknown PCP - General 12/28/23 Additional Source Comments The information contained in this document represents components of the legal health record. It is not the complete legal health record.[facility]
== END 2025-03-06 07:40 | disposition home or self-care (01) ==
LOC: HO.US 07:39
PROVIDERS: PCP Registered Nurse; Visit Provider Family Medicine
DX: M79.661 Pain in right lower leg (principal); M79.89 Other specified soft tissue disorders
CPT/HCPCS: 93971

== ENCOUNTER → 2025-03-06 08:01 | Outpatient (BNV) | payer MEDICAID, SELFPAY | PROVIDERS: PCP Registered Nurse; Visit Provider Radiology Diagnostic Ultrasound | DX: M79.661 Pain in right lower leg (principal) | CPT/HCPCS: 93971 ==